=== PATIENT | female | born 1960 | race Caucasian/White ===

== ENCOUNTER 2019-03-11 05:50 | Emergency (ER) | payer BC, OTHER ==
[2019-03-11] MEDS ORDERED: KETOROLAC 30 MG/ML INJ ONE (06:21)
[2019-03-11] MEDS ORDERED: ONDANSETRON 4 MG/2 ML VIAL ONE (06:21)
[2019-03-11] MEDS ORDERED: NA CHLORIDE 0.9% 1,000 ML ONE (06:21)
[2019-03-11 06:56] LABS: Absolute Lymphocytes (CBC) 0.6 K/uL (0.7-4.9); Basophils % 0.3 % (0-1.3); Hematocrit 35.6 % (36.0-45.0); Lymphocytes % 4.7 % (15.3-44.8); MPV 9.1 fL (7.6-11.3); RBC Red Blood Cell Count 3.81 M/uL (3.86-4.86)
[2019-03-11 07:22] LABS: Albumin 3.2 g/dL (3.4-5.0); Bilirubin Direct 0.1 mg/dL (0-0.2); Bilirubin Total 0.5 mg/dL (0.2-1.0); Potassium 3.9 mmol/L (3.5-5.1); Protein, Total 6.5 g/dL (6.4-8.2)
[2019-03-11 08:48] LABS: Blood Morphology Comment NOT SEEN (NOT SEEN); Platelet Estimate ADEQ
--- NOTE | 2019-03-11 09:07 | RAD REPORT ---
EXAM DESCRIPTION: CT - Abdomen Pelvis W Contrast - 03/11/2019 8:30 am CLINICAL HISTORY: Constipation;Abd pain COMPARISON: None. TECHNIQUE: Biphasic, helical CT imaging of the abdomen and pelvis was performed following 100 ml non -ionic IV contrast. Oral contrast was given. All CT scans are performed using dose optimization technique as appropriate and may include automated exposure control or mA/KV adjustment according to patient size. FINDINGS: No suspicious findings in the lung bases. Liver shows fatty infiltration but no focal lesions. Liver size is normal. Spleen and pancreas show n o acute or suspicious findings. Gallbladder and biliary tree are also without suspicious finding. Symmetric renal function is seen with no hydronephrosis or suspicious renal mass. No pyelonephritis o r acute parenchymal process. No bladder abnormalities. No adrenal abnormality seen. Tubal ligation cl ips are present. Uterus and ovaries show no suspicious findings. No gastric dilatation or wall thickening. No acute small bowel finding. Appendicitis is not identifia ble. From cecum through descending colon there are no acute findings. There is a long segment circumf erential wall thickening involving almost all of the sigmoid colon. Diverticulosis is not clearly irving dent. There is minimal stranding of fatty tissues adjacent to the involved sigmoid colon. No free air, free fluid or pneumatosis. No hernia, mass or bulky lymphadenopathy. No suspicious bony findings. IMPRESSION: Sigmoid colitis. No focal mass lesions seen. No free air or surgically emergent finding. Mild fatty infiltration of the liver.
[2019-03-11] MEDS ORDERED: METRONIDAZOLE 500mg IVPB 500 MG/100 ML BAG IV ONE (09:28)
[2019-03-11] MEDS ORDERED: CIPROFLOXACIN HCL 500 MG TAB ONE (09:28)
--- NOTE | 2019-03-11 09:31 | ER ---
Nurse's Notes [facility] Name: Elsy Reed Age: 58 yrs Sex: Female : 1960 Arrival Date: 03/11/2019 Time: 05:51 Bed 17 Private MD: Diagnosis: Other abdominal pain-sigmoid colitis Presentation: 03/11 05:55 Presenting complaint: Patient states: "Constipation since the past 5 days. I've already cc3 tried OTC miralax, colace and even enema but not helping. My last bowel movement was last night but very little amount. I vomited bile last night and this morning 3x. I also have lower abdominal pain". Transition of care: patient was not received from another setting of care. Onset of symptoms is unknown. Risk Assessment: Do you want to hurt yourself or someone else? Patient reports no desire to harm self or others. Initial Sepsis Screen: Does the patient meet any 2 criteria? No. Patient's initial sepsis screen is negative. Does the patient have a suspected source of infection? No. Patient's initial sepsis screen is negative. Care prior to arrival: None. 05:55 Method Of Arrival: Ambulatory cc3 05:55 Acuity: OMAIRA 3 cc3 Triage Assessment: 05:55 General: Appears in no apparent distress. uncomfortable, Behavior is calm, cooperative, cc3 appropriate for age. Pain: Complains of pain in abdomen diffusely, lower abdomen Pain currently is 6 out of 10 on a pain scale. EENT: No signs and/or symptoms were reported regarding the EENT system. Neuro: Level of Consciousness is awake, alert, obeys commands, Oriented to person, place, time, situation, Appropriate for age. Cardiovascular: Denies chest pain, Capillary refill < 3 seconds in bilateral Patient's skin is warm and dry. Respiratory: Airway is patent Respiratory effort is even, unlabored, Respiratory pattern is regular, symmetrical. GI: Abdomen is round. : No signs and/or symptoms were reported regarding the genitourinary system. Derm: Skin is intact, is healthy with good turgor, Skin is pink, warm \\T\\ dry. normal. Musculoskeletal: Circulation, motion, and sensation intact. Range of motion: intact in all extremities. Historical: - Allergies: 05:55 No Known Allergies; cc3 - Home Meds: 05:55 irbesartan oral oral [Active]; Nexium Oral [Active]; Zyrtec Oral [Active]; cc3 - PMHx: 05:55 Hypertension; cc3 - PSHx: 05:55 Tubal ligation; cc3 - Immunization history:: Adult Immunizations not up to date. - Social history:: Smoking status: Patient uses tobacco products, smokes one pack cigarettes per day. - Ebola Screening: : No symptoms or risks identified at this time. Screenin:55 Abuse screen: Denies threats or abuse. Denies injuries from another. Nutritional cc3 screening: No deficits noted. Tuberculosis screening: No symptoms or risk factors identified. Fall Risk Ambulatory Aid- None/Bed Rest/Nurse Assist (0 pts). Gait- Normal/Bed Rest/Wheelchair (0 pts) Mental Status- Oriented to own ability (0 pts). Assessment: 05:55 GI: Bowel sounds present X 4 quads. Abd is soft X 4 quads Abdomen is tender to cc3 palpation in bilateral lower abdomen. 06:56 Reassessment: Patient appears in no apparent distress at this time. Patient and/or cc3 family updated on plan of care and expected duration. Pain level reassessed. Patient is alert, oriented x 3, equal unlabored respirations, skin warm/dry/pink. Patient finished her oral contrast, wound care technician Erin informed. Patient denies pain at this time. Patient states feeling better. Patient states symptoms have improved. 07:09 General: Appears in no apparent distress. comfortable, well developed, Behavior is sv calm, cooperative, appropriate for age. Pain: Complains of pain in abdomen. Neuro: Level of Consciousness is awake, alert, obeys commands, Oriented to person, place, time, situation, Moves all extremities. Full function. Cardiovascular: Patient's skin is warm and dry. Pulses are 3+ in right radial artery and left radial artery. Respiratory: Airway is patent Respiratory effort is even, unlabored, Respiratory pattern is regular, symmetrical. GI: Abdomen is distended, Bowel sounds present X 4 quads. Patient currently denies nausea. Derm: Skin is intact, Skin is pink, warm \\T\\ dry. 09:32 Reassessment: Patient appears in no apparent distress at this time. Patient and/or sv family updated on plan of care and expected duration. Pain level reassessed. Patient is alert, oriented x 3, equal unlabored respirations, skin warm/dry/pink. 09:32 Reassessment: Pt up for discharge, pt receiving Flagyl IVPB at this time to be finished sv before discharge. 10:05 Reassessment: PT D/C HOME AMBULATORY, DX WITH SIGMOID COLITIS. bp Vital Signs: 05:55 BP 147 / 83; Pulse 94; Resp 17 S; Temp 98.7(O); Pulse Ox 98% on R/A; Weight 77.11 kg cc3 (R); Height 5 ft. 0 in. (152.40 cm) (R); Pain 6/10; 06:30 BP 114 / 72; Pulse 82; Resp 18 S; Pulse Ox 100% on R/A; cc3 07:00 BP 125 / 72; Pulse 80; Resp 16; Pulse Ox 100% ; sv 07:53 BP 125 / 72; Pulse 87; Resp 17; Temp 99.1(O); Pulse Ox 99% on R/A; mh5 09:28 BP 133 / 67; Pulse 87; Resp 17; Temp 99.3(O); Pulse Ox 100% ; mh5 10:06 BP 143 / 90; Pulse 84; Resp 16; Temp 98.5; Pulse Ox 100% ; bp 05:55 Body Mass Index 33.20 (77.11 kg, 152.40 cm) cc3 ED Course: 05:51 Patient arrived in ED. ds1 05:52 Kyara Soni is Primary Nurse. cc3 05:53 Juan Pablo Arias NP is PHCP. pm1 05:53 Jesu Templeton MD is Attending Physician. pm1 05:55 Arm band placed on right wrist. Patient notified of wait time. cc3 05:55 Patient has correct armband on for positive identification. Bed in low position. Call cc3 light in reach. Side rails up X 1. Pulse ox on. NIBP on. 06:08 Triage completed. cc3 06:35 Inserted saline lock: 20 gauge in right antecubital area, using aseptic technique. cc3 Blood collected. 07:00 Report given to SALLY Hopkins. cc3 07:03 Kellie Cevallos RN is Primary Nurse. sv 07:10 Awaiting lab results, Awaiting CT Scan. sv 08:33 CT Abd/Pelvis - PO and IV Contrast In Process Unspecified. EDMS 10:05 No provider procedures requiring assistance completed. IV discontinued, intact, bp bleeding controlled, No redness/swelling at site. Pressure dressing applied. Administered Medications: 06:35 Drug: NS 0.9% 1000 ml Route: IV; Rate: 1000 ml; Site: right antecubital; cc3 07:30 Follow up: Response: No adverse reaction; IV Status: Completed infusion; IV Intake: sv 1000ml 06:35 Drug: TORadol 30 mg Route: IVP; Site: right antecubital; cc3 07:00 Follow up: Response: No adverse reaction; Pain is decreased cc3 06:40 Drug: Zofran 4 mg Route: IVP; Site: right antecubital; cc3 06:53 Follow up: Response: No adverse reaction; Nausea is decreased cc3 09:31 Drug: Cipro 500 mg Route: PO; sv 10:07 Follow up: Response: No adverse reaction bp 09:31 Drug: Flagyl 500 mg Volume: 100 ml; Route: IVPB; Rate: 200 ml/hr; Infused Over: 30 sv mins; Site: right antecubital; 10:07 Follow up: IV Status: Completed infusion; IV Intake: 100ml bp Intake: 07:30 IV: 1000ml; Total: 1000ml. sv 10:07 IV: 100ml; Total: 1100ml. bp Outcome: 09:30 Discharge ordered by . pm1 10:06 Discharged to home ambulatory. bp 10:06 Condition: stable 10:06 Discharge instructions given to patient, Instructed on discharge instructions, follow up and referral plans. medication usage, Demonstrated understanding of instructions, follow-up care, medications, Prescriptions given X 4. 10:07 Patient left the ED. bp Signatures: Dispatcher [employer] EDKS Kellie Cevallos RN RN Malinda Parmar ds1 Juan Pablo Arias, [employer] PUMP ATTENDANT pm1 Funmi Goode Mustapha Denton RN RN Kyara Munoz cc3
--- NOTE | 2019-03-11 09:31 | EDPHYS ---
Physician Documentation [facility] Name: Elsy Reed Age: 58 yrs Sex: Female : 1960 Arrival Date: 03/11/2019 Time: 05:51 Bed 17 Private MD: ED Physician Jesu Templeton HPI: 03/11 06:05 This 58 yrs old Female presents to ER via Unassigned with complaints of pm1 Constipation, Abdominal Pain. 06:05 The patient presents with abdominal pain that is diffuse. Onset: The symptoms/episode pm1 began/occurred 5 day(s) ago. The symptoms do not radiate. Associated signs and symptoms: Pertinent positives: nausea and vomiting, constipation, Pertinent negatives: chest pain, diarrhea, dysuria, fever, shortness of breath. The symptoms are described as crampy. Modifying factors: The symptoms are alleviated by nothing, the symptoms are aggravated by nothing. Severity of pain: in the emergency department the pain is actually worse. The patient has not experienced similar symptoms in the past. The patient has not recently seen a physician. Patient with diffuse abdominal pain and constipation onset 5 days ago. Bowel movement last night, small quantity. Bilious vomiting x 3 since last night. Patient has been taking Miralax and Colace. Enema last night. Historical: - Allergies: 05:55 No Known Allergies; cc3 - Home Meds: 05:55 irbesartan oral oral [Active]; Nexium Oral [Active]; Zyrtec Oral [Active]; cc3 - PMHx: 05:55 Hypertension; cc3 - PSHx: 05:55 Tubal ligation; cc3 - Immunization history:: Adult Immunizations not up to date. - Social history:: Smoking status: Patient uses tobacco products, smokes one pack cigarettes per day. - Ebola Screening: : No symptoms or risks identified at this time. ROS: 06:05 Constitutional: Negative for fever, chills, and weight loss, Eyes: Negative for injury, pm1 pain, redness, and discharge, ENT: Negative for injury, pain, and discharge, Neck: Negative for injury, pain, and swelling, Cardiovascular: Negative for chest pain, palpitations, and edema, Respiratory: Negative for shortness of breath, cough, wheezing, and pleuritic chest pain. 06:05 Back: Negative for injury and pain, : Negative for injury, bleeding, discharge, and swelling, MS/Extremity: Negative for injury and deformity, Skin: Negative for injury, rash, and discoloration, Neuro: Negative for headache, weakness, numbness, tingling, and seizure. 06:05 Abdomen/GI: Positive for abdominal pain, nausea and vomiting, constipation, Negative for diarrhea. Exam: 06:05 Constitutional: This is a well developed, well nourished patient who is awake, alert, pm1 and in no acute distress. Head/Face: Normocephalic, atraumatic. Neck: Trachea midline, no thyromegaly or masses palpated, and no cervical lymphadenopathy. Supple, full range of motion without nuchal rigidity, or vertebral point tenderness. No Meningismus. Chest/axilla: Normal chest wall appearance and motion. Nontender with no deformity. No lesions are appreciated. Cardiovascular: Regular rate and rhythm with a normal S1 and S2. No gallops, murmurs, or rubs. Normal PMI, no JVD. No pulse deficits. Respiratory: Lungs have equal breath sounds bilaterally, clear to auscultation and percussion. No rales, rhonchi or wheezes noted. No increased work of breathing, no retractions or nasal flaring. Back: No spinal tenderness. No costovertebral tenderness. Full range of motion. 06:05 Skin: Warm, dry with normal turgor. Normal color with no rashes, no lesions, and no evidence of cellulitis. MS/ Extremity: Pulses equal, no cyanosis. Neurovascular intact. Full, normal range of motion. 06:05 Abdomen/GI: Inspection: obese Bowel sounds: normal, Palpation: soft, mild abdominal tenderness, in the abdomen diffusely, mass, is not appreciated, rebound tenderness, is not appreciated. 06:05 Neuro: Orientation: is normal, Motor: no acute changes, moves all fours. Vital Signs: 05:55 BP 147 / 83; Pulse 94; Resp 17 S; Temp 98.7(O); Pulse Ox 98% on R/A; Weight 77.11 kg cc3 (R); Height 5 ft. 0 in. (152.40 cm) (R); Pain 6/10; 06:30 BP 114 / 72; Pulse 82; Resp 18 S; Pulse Ox 100% on R/A; cc3 07:00 BP 125 / 72; Pulse 80; Resp 16; Pulse Ox 100% ; sv 07:53 BP 125 / 72; Pulse 87; Resp 17; Temp 99.1(O); Pulse Ox 99% on R/A; mh5 09:28 BP 133 / 67; Pulse 87; Resp 17; Temp 99.3(O); Pulse Ox 100% ; mh5 10:06 BP 143 / 90; Pulse 84; Resp 16; Temp 98.5; Pulse Ox 100% ; bp 05:55 Body Mass Index 33.20 (77.11 kg, 152.40 cm) cc3 MDM: 05:56 Patient medically screened. pm1 06:09 Data reviewed: vital signs. Data interpreted: Pulse oximetry: on room air is 98 %. pm1 Interpretation: normal. 09:23 Counseling: I had a detailed discussion with the patient and/or guardian regarding: the pm1 historical points, exam findings, and any diagnostic results supporting the discharge/admit diagnosis, lab results, radiology results, the need for outpatient follow up, to return to the emergency department if symptoms worsen or persist or if there are any questions or concerns that arise at home. 03/11 06:03 Order name: Basic Metabolic Panel; Complete Time: 07:23 pm03/11 06:03 Order name: CBC with Diff; Complete Time: 09:17 pm03/11 06:03 Order name: Creatinine for Radiology; Complete Time: 07:23 pm03/11 06:03 Order name: Hepatic Function; Complete Time: 07:23 pm03/11 06:03 Order name: Lipase; Complete Time: 07:23 pm03/11 08:12 Order name: Urine Dipstick--Ancillary (enter results); Complete Time: 13:23 bd 03/11 06:03 Order name: CT Abd/Pelvis - PO and IV Contrast; Complete Time: 09:17 pm03/11 08:15 Order name: Urine --Ancillary (enter results); Complete Time: 13:23 bd 03/11 08:48 Order name: Manual Differential; Complete Time: 09:17 EDMS 03/11 06:03 Order name: IV Saline Lock; Complete Time: 06:47 pm1 03/11 06:03 Order name: Labs collected and sent; Complete Time: 06:47 pm1 03/11 06:03 Order name: Urine Dipstick-Ancillary (obtain specimen); Complete Time: 08:11 pm1 03/11 06:03 Order name: Urine Test (obtain specimen); Complete Time: 09:31 pm1 Administered Medications: 06:35 Drug: NS 0.9% 1000 ml Route: IV; Rate: 1000 ml; Site: right antecubital; cc3 07:30 Follow up: Response: No adverse reaction; IV Status: Completed infusion; IV Intake: sv 1000ml 06:35 Drug: TORadol 30 mg Route: IVP; Site: right antecubital; cc3 07:00 Follow up: Response: No adverse reaction; Pain is decreased cc3 06:40 Drug: Zofran 4 mg Route: IVP; Site: right antecubital; cc3 06:53 Follow up: Response: No adverse reaction; Nausea is decreased cc3 09:31 Drug: Cipro 500 mg Route: PO; sv 10:07 Follow up: Response: No adverse reaction bp 09:31 Drug: Flagyl 500 mg Volume: 100 ml; Route: IVPB; Rate: 200 ml/hr; Infused Over: 30 sv mins; Site: right antecubital; 10:07 Follow up: IV Status: Completed infusion; IV Intake: 100ml bp Disposition: 22:46 Co-signature as Attending Physician, Jesu Templeton MD. rn Disposition: 03/11/19 09:30 Discharged to Home. Impression: Other abdominal pain - sigmoid colitis. - Condition is Stable. - Discharge Instructions: Abdominal Pain, Adult, Colitis. - Prescriptions for Bentyl 20 mg Oral Tablet - take 1 tablet by ORAL route every 6 hours As needed; 20 tablet. Flagyl 500 mg Oral Tablet - take 1 tablet by ORAL route every 8 hours for 10 days; 30 tablet. Zofran 4 mg Oral Tablet - take 1 tablet by ORAL route every 12 hours As needed; 20 tablet. Cipro 500 mg Oral Tablet - take 1 tablet by ORAL route every 12 hours for 10 days; 20 tablet. - Medication Reconciliation Form, Thank You Letter, Antibiotic Education, Prescription Opioid Use form. - Follow up: Emergency Department; When: As needed; Reason: Worsening of condition. Follow up: Private Physician; When: 2 - 3 days; Reason: Recheck today's complaints, Continuance of care, Re-evaluation by your physician. - Problem is new. - Symptoms have improved. Signatures: Dispatcher [employer] EDKellie Jenkins RN RN Jesu Ornelas MD MD rn Marinas, Patrick, RESPITE PROVIDER RESPITE PROVIDER pm1 Mustapha Oseguera RN RN Kyara Munoz cc3 Corrections: (The following items were deleted from the chart) 10:07 09:30 03/11/2019 09:30 Discharged to Home. Impression: Other abdominal pain - sigmoid bp colitis. Condition is Stable. Forms are Medication Reconciliation Form, Thank You Letter, Antibiotic Education, Prescription Opioid Use. Follow up: Emergency Department; When: As needed; Reason: Worsening of condition. Follow up: Private Physician; When: 2 - 3 days; Reason: Recheck today's complaints, Continuance of care, Re-evaluation by your physician. Problem is new. Symptoms have improved. pm1
[2019-03-11 09:49] LABS: Urine Specific Gravity 1.015 (1.005-1.030)
[2019-03-11 09:50] LABS: Urine Blood NEGATIVE (NEG); Urine Glucose NEGATIVE (NEG); Urine Protein NEGATIVE (NEG); Urine Specific Gravity 1.015 (1.005-1.030); Urine pH 6.5 (5.0-7.0)
[2019-03-11 10:20] VITALS: O2SAT 100
[2019-03-11 10:21] VITALS: BP 143/90; TEMP 98.5
== END 2019-03-11 10:07 | disposition home or self-care (01) ==
LOC: ER 05:50
DX: K52.9 Noninfective gastroenteritis and colitis, unspecified (principal); I10 Essential (primary) hypertension; F17.210 Nicotine dependence, cigarettes, uncomplicated
CPT/HCPCS: 96365; 96361; 85025; 80048; 36415; 81025; 80076; 81003; 83690; 74177; 96375; 99284; Q9967; J7030; J2405

== ENCOUNTER 2019-03-17 12:38 | Emergency (ER) | payer BC ==
[2019-03-17] MEDS ORDERED: MEPERIDINE HCL 25 MG/0.5 ML ONE (13:49)
[2019-03-17] MEDS ORDERED: NA CHLORIDE 0.9% 1,000 ML ONE ×2 (13:50→17:10)
[2019-03-17] MEDS ORDERED: ONDANSETRON 4 MG/2 ML VIAL ONE ×2 (13:50→17:19)
[2019-03-17 14:02] LABS: Absolute Lymphocytes (CBC) 1.2 K/uL (0.7-4.9); Basophils % 0.2 % (0-1.3); Hematocrit 39.9 % (36.0-45.0); Lymphocytes % 6.5 % (15.3-44.8); MPV 9.2 fL (7.6-11.3); RBC Red Blood Cell Count 4.41 M/uL (3.86-4.86)
[2019-03-17 14:18] LABS: ALT/SGPT 26 U/L (12-78); AST/SGOT 18 U/L (15-37); Albumin 3.2 g/dL (3.4-5.0); Alkaline Phosphatase 51 U/L (45-117); BUN Blood Urea Nitrogen 14 mg/dL (7-18); Bicarbonate 25 mmol/L (21-32); Bilirubin Direct 0.1 mg/dL (0-0.2); Bilirubin Total 0.3 mg/dL (0.2-1.0); Glucose Level 119 mg/dL (74-106); Lipase 38 U/L (73-393); Potassium 3.3 mmol/L (3.5-5.1); Protein, Total 7.3 g/dL (6.4-8.2); Sodium Level 136 mmol/L (136-145)
[2019-03-17] MEDS ORDERED: MORPHINE 4 MG/ML SYR ONE ×3 (14:29→20:39)
[2019-03-17 15:16] LABS: Blood Morphology Comment NOTED (NOT SEEN); Platelet Estimate INCR; Urine White Blood Cell Casts OK
[2019-03-17 15:17] LABS: Poikilocytosis 1+
--- NOTE | 2019-03-17 16:51 | RAD REPORT ---
EXAM DESCRIPTION: CT - Abdomen Pelvis W Contrast - 03/17/2019 4:26 pm CLINICAL HISTORY: abp painstatus post colonoscopy, history indicating abnormal finding in the sigmoi d colon COMPARISON: CT imaging March 11 TECHNIQUE: Biphasic, helical CT imaging of the abdomen and pelvis was performed following 100 ml non -ionic IV contrast. Oral contrast was given. All CT scans are performed using dose optimization technique as appropriate and may include automated exposure control or mA/KV adjustment according to patient size. FINDINGS: Minimal atelectasis. No acute lung base finding. Fat infiltration present in the liver. No acute liver finding. Spleen and pancreas show no suspicious findings. Gallbladder and biliary tree are also without suspicious finding. Symmetric renal function is seen with no hydronephrosis or suspicious renal mass. No pyelonephritis o r acute parenchymal process. No bladder abnormalities. No adrenal abnormalities. No acute gastric finding. No dilated small bowel loops. Cecum, ascending colon, transverse colon and descending colon are distended to borderline dilated. This is not unexpected following recent colonos copy. Rectosigmoid colon normal in diameter. There is a large amount of free intraperitoneal air pres ent. Free intraperitoneal fluid is present and there is a small amount of retroperitoneal fluid near the right kidney. Free fluid pools in the cul de sac. Oral contrast has reached the right side of the transverse colon. No extravasation of the oral contrast. Sigmoid wall thickening is present along th e mid and distal portion of the sigmoid colon. A well-defined mass is not identifiable. An exact site of perforation is not identifiable. No bulky lymphadenopathy. Small fat only umbilical hernia present. No suspicious bony findings. Findings telephoned to the emergency department 4:47 p.m. IMPRESSION: Large amount of free intraperitoneal air with a small amount of free fluid seen. Exact site of perforation is not clearly defined. There is circumferential wall thickening along the mid and distal portion of the sigmoid colon. Oral contrast has reached the right side of the transverse colon without extravasation.
[2019-03-17] MEDS ORDERED: PIPER/TAZO/NS 3.375gm 3.375 GM/100 ML BAG ONE (17:10)
--- NOTE | 2019-03-17 17:36 | ER ---
Nurse's Notes [facility] Name: Elsy Reed Age: 58 yrs Sex: Female : 1960 Arrival Date: 03/17/2019 Time: 13:05 Bed 7 Private MD: Diagnosis: Perforation of intestine (nontraumatic) Presentation: 03/17 13:05 Presenting complaint: Patient states: I had a colonoscopy and they found something in la1 my sigmoid colon. I am having severe abd pain and they told me to come to the ED. Transition of care: patient was not received from another setting of care. Onset of symptoms was March 17, 2019. Risk Assessment: Do you want to hurt yourself or someone else? Patient reports no desire to harm self or others. Initial Sepsis Screen: Does the patient meet any 2 criteria? No. Patient's initial sepsis screen is negative. Does the patient have a suspected source of infection? No. Patient's initial sepsis screen is negative. Care prior to arrival: None. 13:05 Method Of Arrival: Wheelchair la1 13:05 Acuity: OMAIRA 2 la1 Historical: - Allergies: 18:27 No Known Allergies; tw2 - Home Meds: 18:27 Zyrtec Oral [Active]; Nexium Oral [Active]; irbesartan Oral [Active]; tw2 - PMHx: 18:27 Hypertension; tw2 - PSHx: 18:27 Tubal ligation; tw2 - Immunization history:: Adult Immunizations up to date. - Social history:: Smoking status: . - Family history:: not pertinent. - Ebola Screening: : Patient denies travel to an Ebola-affected area in the 21 days before illness onset. - Hospitalizations: : No recent hospitalization is reported. Screenin:21 Abuse screen: Denies threats or abuse. Denies injuries from another. Nutritional aj1 screening: No deficits noted. Tuberculosis screening: No symptoms or risk factors identified. 18:27 Fall Risk None identified. tw2 Assessment: 13:21 General: Appears in no apparent distress. uncomfortable, Behavior is calm, cooperative, aj1 appropriate for age. Pain: Complains of pain in abdomen. Neuro: Level of Consciousness is awake, alert, obeys commands. Cardiovascular: Patient's skin is warm and dry. Respiratory: Airway is patent Respiratory effort is even, unlabored, Respiratory pattern is regular, symmetrical. GI: Abdomen is distended, Bowel sounds present X 4 quads. Abdomen is tender to palpation X 4 quads. Abd is rigid X 4 quads. Reports nausea, vomiting. : No signs and/or symptoms were reported regarding the genitourinary system. EENT: No signs and/or symptoms were reported regarding the EENT system. Derm: No signs and/or symptoms reported regarding the dermatologic system. Skin is pink, warm \T\ dry. normal. Musculoskeletal: No signs and/or symptoms reported regarding the musculoskeletal system. Circulation, motion, and sensation intact. 13:52 Reassessment: Initiated 1L NS bolus to right AC IV. Patient was also administered aj1 Demerol 25 mg IVP and Zofran 4 mg IVP at this time. 14:30 Reassessment: Patient appears in no apparent distress at this time. No changes from aj1 previously documented assessment. Patient and/or family updated on plan of care and expected duration. Pain level reassessed. Patient is alert, oriented x 3, equal unlabored respirations, skin warm/dry/pink. Patient states that her pain has not improved at all since administration of Demerol, Notified Dr. Templeton. Order received. See MAR for more details. 15:29 Reassessment: Patient appears in no apparent distress at this time. No changes from tw2 previously documented assessment. Patient and/or family updated on plan of care and expected duration. Pain level reassessed. Patient is alert, oriented x 3, equal unlabored respirations, skin warm/dry/pink. 16:30 Reassessment: Patient and/or family updated on plan of care and expected duration. Pain aj1 level reassessed. General: Appears in no apparent distress. comfortable, Behavior is calm, cooperative. Pain: Complains of pain in abdomen. Neuro: Level of Consciousness is awake, alert, obeys commands. Cardiovascular: Patient's skin is warm and dry. Respiratory: Airway is patent Respiratory effort is even, unlabored, Respiratory pattern is regular, symmetrical. GI: Abdomen is round distended, Abd is rigid X 4 quads. Derm: No signs and/or symptoms reported regarding the dermatologic system. Skin is pink, warm \T\ dry. normal. Musculoskeletal: No signs and/or symptoms reported regarding the musculoskeletal system. Circulation, motion, and sensation intact. 17:15 Reassessment: Patient reports that her and nausea pain has come back. Notified Dr. vin Templeton. Orders received. See MAR for more details. 18:36 Reassessment: Patient appears in no apparent distress at this time. Patient and/or tw2 family updated on plan of care and expected duration. Pain level reassessed. Patient is alert, oriented x 3, equal unlabored respirations, skin warm/dry/pink. 19:10 Reassessment: pt assisted to restroom via w/c at this time, pt had urinary accident on tw2 herself and her pants, pt was given a brief, pad, and wipes at this time. 19:10 General: Appears in no apparent distress. Behavior is calm, cooperative, appropriate ea for age. Pain: Complains of pain in abdomen. Neuro: Level of Consciousness is awake, alert, obeys commands, Oriented to person, place, time, situation. Cardiovascular: Patient's skin is warm and dry. Respiratory: Airway is patent Respiratory effort is even, unlabored, Respiratory pattern is regular, symmetrical. Derm: Skin is pink, warm \T\ dry. Musculoskeletal: Circulation, motion, and sensation intact. 20:50 Reassessment: Patient and/or family updated on plan of care and expected duration. Pain ea level reassessed. Patient is alert, oriented x 3, equal unlabored respirations, skin warm/dry/pink. Pt complaining of pain, provider notified, medication administered. Pt tolerating well. 20:58 Reassessment: Patient and/or family updated on plan of care and expected duration. Pain ea level reassessed. Patient is alert, oriented x 3, equal unlabored respirations, skin warm/dry/pink. [facility] at facility for transfer, report given to EMS, pt left ED via stretcher per EMS. Tolerating well. Vital Signs: 13:06 BP 141 / 75; Pulse 100; Resp 16; Temp 97.4; Pulse Ox 100% on R/A; Weight 78.93 kg; la1 Height 5 ft. 6 in. (167.64 cm); 14:31 BP 135 / 108; Pulse 73; Resp 18; Pulse Ox 97% on R/A; aj1 15:29 BP 127 / 73; Pulse 74; Resp 17; Pulse Ox 100% on R/A; tw2 16:00 BP 139 / 76; Pulse 80; Resp 18; Pulse Ox 97% on R/A; aj1 17:00 BP 143 / 66; Pulse 94; Resp 20; Pulse Ox 98% on R/A; aj1 18:00 BP 133 / 72; Pulse 91; Resp 17; Pulse Ox 98% on R/A; tw2 19:53 BP 130 / 70; Pulse 87; Resp 18; Pulse Ox 95% on R/A; ea 20:55 BP 113 / 73; Pulse 94; Resp 18; Temp 97.6; Pulse Ox 96% on R/A; ea 13:06 Body Mass Index 28.08 (78.93 kg, 167.64 cm) la1 ED Course: 13:05 Patient arrived in ED. la1 13:06 Triage completed. la1 13:06 Arm band placed on right wrist. la1 13:11 Jesu Templeton MD is Attending Physician. rn 13:21 Elizabeth Juarez RN is Primary Nurse. aj1 13:21 Patient has correct armband on for positive identification. Bed in low position. Call [facility] light in reach. 13:21 No provider procedures requiring assistance completed. aj1 13:50 Initial lab(s) drawn, by hi, sent to lab. Inserted saline lock: 20 gauge in right [facility] antecubital area, using aseptic technique. Blood collected. 16:31 Abdomen In Process Unspecified. EDMS 18:37 Patient transferred, IV remains in place. tw2 19:18 Report given to SALLY Man at [facility]. aj Administered Medications: 14:31 Drug: morphine 4 mg {Note: RASS scoire 0, patient is alert.} Route: IVP; Site: right aj1 antecubital; 15:30 Follow up: Response: No adverse reaction; Pain is decreased; RASS: Alert and Calm (0) aj1 17:18 Drug: Zosyn 3.375 grams Route: IVPB; Infused Over: 60 mins; Site: right antecubital; tw2 18:26 Follow up: Response: No adverse reaction; IV Status: Completed infusion tw2 18:57 Follow up: IV Status: Completed infusion; IV Intake: 100ml aj1 17:18 Drug: NS 0.9% 1000 ml Route: IV; Rate: 125 ml/hr; Site: right antecubital; tw2 18:37 Follow up: IV Status: Infusion continued upon transfer tw2 17:22 Drug: morphine 4 mg {Note: RASS score 0 patient is alert.} Route: IVP; Site: right aj1 antecubital; 18:57 Follow up: Response: No adverse reaction; Pain is decreased; RASS: Alert and Calm (0) aj1 17:22 Drug: Zofran 4 mg Route: IVP; Site: right antecubital; aj1 18:30 Follow up: Response: No adverse reaction aj1 18:30 Drug: Dilaudid 1 mg {Note: RASS score 0- patient is alert.} Route: IVP; Site: right aj1 antecubital; 18:58 Follow up: Response: No adverse reaction; Pain is decreased; RASS: Alert and Calm (0) aj1 20:50 Drug: morphine 4 mg {Note: RASS 1.} Route: IVP; Site: right antecubital; ea 21:02 Follow up: Response: No adverse reaction; RASS: Alert and Calm (0) ea Intake: 18:57 IV: 100ml; Total: 100ml. [facility] Outcome: 17:02 ER care complete, transfer ordered by . rn 19:10 Instructed on the need for transfer. ea 20:57 Transferred by ground EMS to [facility], Transfer form completed. ea 20:57 Condition: stable 21:01 Patient left the ED. ea Signatures: Dispatcher [employer] Elizabeth Saldana RN RN aj1 Jesu Templeton MD MD rn Attema, Lee, RN RN laIsi Howard RN RN tw2 Cris Love RN RN ea
--- NOTE | 2019-03-17 17:36 | EDPHYS ---
Physician Documentation [facility] Name: Elsy Reed Age: 58 yrs Sex: Female : 1960 Arrival Date: 03/17/2019 Time: 13:05 Bed 7 Private MD: ED Physician Jesu Templeton HPI: 03/17 13:25 This 58 yrs old Female presents to ER via Wheelchair with complaints of Abd rn Pain > 50 y/o. 13:25 The patient presents with abdominal distention that is diffuse. Onset: The rn symptoms/episode began/occurred 1 week(s) ago. The symptoms do not radiate. Associated signs and symptoms: Pertinent positives: nausea and vomiting, anorexia, constipation. The symptoms are described as constant, crampy. Modifying factors: The symptoms are alleviated by nothing, the symptoms are aggravated by movement, touching the area. Severity of pain: At its worst the pain was moderate in the emergency department the pain is unchanged. The patient has not experienced similar symptoms in the past. The patient has been recently seen by a physician:. Reports seen here with normal CT abdomen this past week, had colonoscopy today and told that couldn't pass camera past sigmoid colon. Reports abd distension and vomiting. NO bowel movements. . Historical: - Allergies: 18:27 No Known Allergies; tw2 - Home Meds: 18:27 Zyrtec Oral [Active]; Nexium Oral [Active]; irbesartan Oral [Active]; tw2 - PMHx: 18:27 Hypertension; tw2 - PSHx: 18:27 Tubal ligation; tw2 - Immunization history:: Adult Immunizations up to date. - Social history:: Smoking status: . - Family history:: not pertinent. - Ebola Screening: : Patient denies travel to an Ebola-affected area in the 21 days before illness onset. - Hospitalizations: : No recent hospitalization is reported. ROS: 13:25 Constitutional: Negative for fever, chills, and weight loss, Eyes: Negative for injury, rn pain, redness, and discharge, Neck: Negative for injury, pain, and swelling, Cardiovascular: Negative for chest pain, palpitations, and edema, Respiratory: Negative for shortness of breath, cough, wheezing, and pleuritic chest pain, Abdomen/GI: Negative for diarrhea MS/Extremity: Negative for injury and deformity, Skin: Negative for injury, rash, and discoloration, Neuro: Negative for headache, weakness, numbness, tingling, and seizure. Exam: 13:25 Constitutional: This is a well developed, well nourished patient who is awake, alert, rn and in no acute distress. Head/Face: Normocephalic, atraumatic. ENT: dry MM Cardiovascular: Regular rate and rhythm. No pulse deficits. Respiratory: No increased work of breathing, no retractions or nasal flaring. Abdomen/GI: + abd distension with firm upper abdomen, no peritoneal signs MS/ Extremity: Pulses equal, no cyanosis. Neurovascular intact. Full, normal range of motion. Equal circumference. Neuro: Awake and alert, GCS 15, oriented to person, place, time, and situation. Cranial nerves II-XII grossly intact. Motor strength 5/5 in all extremities. Sensory grossly intact. Cerebellar exam normal. Normal gait. Vital Signs: 13:06 BP 141 / 75; Pulse 100; Resp 16; Temp 97.4; Pulse Ox 100% on R/A; Weight 78.93 kg; la1 Height 5 ft. 6 in. (167.64 cm); 14:31 BP 135 / 108; Pulse 73; Resp 18; Pulse Ox 97% on R/A; aj1 15:29 BP 127 / 73; Pulse 74; Resp 17; Pulse Ox 100% on R/A; tw2 16:00 BP 139 / 76; Pulse 80; Resp 18; Pulse Ox 97% on R/A; aj1 17:00 BP 143 / 66; Pulse 94; Resp 20; Pulse Ox 98% on R/A; aj1 18:00 BP 133 / 72; Pulse 91; Resp 17; Pulse Ox 98% on R/A; tw2 19:53 BP 130 / 70; Pulse 87; Resp 18; Pulse Ox 95% on R/A; ea 20:55 BP 113 / 73; Pulse 94; Resp 18; Temp 97.6; Pulse Ox 96% on R/A; ea 13:06 Body Mass Index 28.08 (78.93 kg, 167.64 cm) la1 MDM: 13:11 Patient medically screened. rn 16:57 Differential diagnosis: bowel perforation, diverticulitis, abscess. Data reviewed: rn vital signs, nurses notes, lab test result(s), radiologic studies, CT scan, and as a result, I will admit patient. Counseling: I had a detailed discussion with the patient and/or guardian regarding: the historical points, exam findings, and any diagnostic results supporting the discharge/admit diagnosis, lab results, radiology results, the need for further work-up and treatment in the hospital. Medical screen evaluation completed. [facility] emergency medical condition absent. Response to treatment: the patient's symptoms have mildly improved after treatment, and as a result, I will admit patient. ED course: Patient seen here in ER by Dr. Serna who contacted Dr. Antunez regarding bowel perforation, Dr. Antunez has accepted patient for transfer to [facility]. Abx given. Pain meds given. NPO. Fluids going.. 03/17 15:09 Order name: CBC with Automated Diff; Complete Time: 16:54 EDMS 03/17 15:09 Order name: Basic Metabolic Panel; Complete Time: 15:10 EDMS 03/17 15:09 Order name: Liver (Hepatic) Function; Complete Time: 15:10 EDMS 03/17 15:09 Order name: Lipase; Complete Time: 15:10 EDMS 03/17 15:18 Order name: CBC Smear Scan; Complete Time: 16:54 EDMS 03/17 16:31 Order name: Abdomen ; Complete Time: 16:54 EDMS 03/17 16:51 Order name: NPO; Complete Time: 16:55 rn Administered Medications: 14:31 Drug: morphine 4 mg {Note: RASS scoire 0, patient is alert.} Route: IVP; Site: right aj1 antecubital; 15:30 Follow up: Response: No adverse reaction; Pain is decreased; RASS: Alert and Calm (0) 17:18 Drug: Zosyn 3.375 grams Route: IVPB; Infused Over: 60 mins; Site: right antecubital; tw2 18:26 Follow up: Response: No adverse reaction; IV Status: Completed infusion tw2 18:57 Follow up: IV Status: Completed infusion; IV Intake: 100ml aj 17:18 Drug: NS 0.9% 1000 ml Route: IV; Rate: 125 ml/hr; Site: right antecubital; tw2 18:37 Follow up: IV Status: Infusion continued upon transfer tw2 17:22 Drug: morphine 4 mg {Note: RASS score 0 patient is alert.} Route: IVP; Site: right aj1 antecubital; 18:57 Follow up: Response: No adverse reaction; Pain is decreased; RASS: Alert and Calm (0) aj1 17:22 Drug: Zofran 4 mg Route: IVP; Site: right antecubital; aj1 18:30 Follow up: Response: No adverse reaction aj1 18:30 Drug: Dilaudid 1 mg {Note: RASS score 0- patient is alert.} Route: IVP; Site: right aj1 antecubital; 18:58 Follow up: Response: No adverse reaction; Pain is decreased; RASS: Alert and Calm (0) aj1 20:50 Drug: morphine 4 mg {Note: RASS 1.} Route: IVP; Site: right antecubital; ea 21:02 Follow up: Response: No adverse reaction; RASS: Alert and Calm (0) ea Disposition: 03/17/19 17:02 Transfer ordered to [facility]. Diagnosis is Perforation of intestine (nontraumatic). - Reason for transfer: Higher level of care. - Accepting physician is Dr. Antunez. - Condition is Stable. - Problem is new. - Symptoms have improved. Signatures: Dispatcher [employer] EDElizabeth Hernandez RN RN aj1 Jesu Templeton MD MD rn Wise, Tara, RN RN tw2 Cris Love RN RN ea Corrections: (The following items were deleted from the chart) 21:01 17:02 03/17/2019 17:02 Transfer ordered to [facility]. Diagnosis is ea Perforation of intestine (nontraumatic). Reason for transfer: Higher level of care. Accepting physician is Dr. Antunez. Condition is Stable. Problem is new. Symptoms have improved. rn
[2019-03-17] MEDS ORDERED: HYDROMORPHONE HCL 1 MG/ML INJ ONE (18:25)
[2019-03-17 22:47] VITALS: BP 113/73; TEMP 97.6; O2SAT 96
== END 2019-03-17 21:01 | disposition short-term general hospital (02) ==
LOC: ER 12:38
DX: K63.1 Perforation of intestine (nontraumatic) (principal); I10 Essential (primary) hypertension
CPT/HCPCS: 96365; 85025; 80048; 36415; 80076; 83690; 74177; 96375; 99285; Q9967; J2543; J2175; J1170; J7030 ×2; J2405 ×2

== ENCOUNTER 2019-05-30 11:21 | Day surgery (SDC) | payer BC ==
[2019-05-29 15:42] LABS: Absolute Lymphocytes (CBC) 2.1 K/uL (0.7-4.9); Basophils % 0.6 % (0-1.3); Hematocrit 36.5 % (36.0-45.0); Lymphocytes % 24.3 % (15.3-44.8); MPV 9.7 fL (7.6-11.3); RBC Red Blood Cell Count 4.02 M/uL (3.86-4.86)
[2019-05-29 15:54] LABS: BUN Blood Urea Nitrogen 16 mg/dL (7-18); Bicarbonate 25 mmol/L (21-32); Glucose Level 92 mg/dL (74-106); Potassium 3.8 mmol/L (3.5-5.1); Sodium Level 140 mmol/L (136-145)
[2019-05-30] MEDS ORDERED: CEFAZOLIN/SWI 1gm 1 GM/10 ML SYR ONE (11:49)
[2019-05-30] MEDS ORDERED: Ringers Lactate 1,000 ML IV ONE ×2 (11:49→15:22)
[2019-05-30] MEDS ORDERED: FENTANYL CITR 100 MCG/2 ML ONE ×3 (12:57→14:36)
[2019-05-30] MEDS ORDERED: propofoL 200 MG/20 ML VIAL IV ONE (12:57)
[2019-05-30] MEDS ORDERED: MIDAZOLAM HCL 2 MG/2 ML INJ ONE (12:58)
[2019-05-30] MEDS ORDERED: LIDOCAINE 2% MPF 5 ML VIAL ONE (12:58)
[2019-05-30] MEDS ORDERED: ONDANSETRON 4 MG/2 ML VIAL ONE ×2 (12:59→14:56)
[2019-05-30] MEDS ORDERED: FENTANYL CITR 100 MCG/2 ML IV ONE ×2 (13:00→13:20)
--- NOTE | 2019-05-30 14:34 | P.BOP ---
Preoperative diagnosis: left intraarticular distal radius fracture Postoperative diagnosis: same Primary procedure: ORIF with fixation of 2 intraarticular fragements Estimated blood loss: 5 cc Anesthesia: General Complications: None Transferred to: Recovery Room Condition: Good
[2019-05-30] MEDS: HYDROMORPHONE HCL 1 MG/ML INJ ONE ×4 (14:39→15:37)
[2019-05-30] MEDS: HYDROMORPHONE HCL 2 MG/ML inj ONE ×4 (14:49→15:17)
[2019-05-30] MEDS ORDERED: PROMETHAZINE INJ 25 MG/ML AMP ONE (15:06)
[2019-05-30] MEDS ORDERED: dexAMETHasone 10 MG/ML VIAL ONE (15:06)
[2019-05-30] MEDS ORDERED: MEPERIDINE HCL 50 MG/ML ONE (15:28)
[2019-05-30] MEDS ORDERED: HYDROMORPHONE HCL 1 MG/ML INJ ONE (15:29)
--- NOTE | 2019-05-30 15:32 | RAD REPORT ---
EXAM DESCRIPTION: RAD - Wrist Left 2 View - 05/30/2019 2:34 pm FINDINGS: There were 2 portable C-arm views submitted from fluoroscopic assisted placement of fractu re fixation hardware. No suspicious or unexpected findings. Fluoro time was 0.7 minutes
[2019-05-30 15:57] VITALS: O2SAT 96
[2019-05-30 17:56] VITALS: BP 101/62; TEMP 97.9
--- NOTE | 2019-05-31 02:07 | OP ---
Surgeon: Jesus Mckeon MD Preoperative Diagnosis: Left distal radius fracture. Postoperative Diagnosis: Left distal radius fracture. Procedure Performed: Left distal radius fracture open reduction and internal fixation using the Accu Med 2 volar radius plating system with 2 intra-articular fragments. Estimated Blood Loss: Less than 5 mL. Complications: There were no complications. Specimen: No pathology specimens sent. Indications For Operation: Ms. Reed is a 58-year-old female, who unfortunately fell and injured her left upper extremity. She was seen in the emergency department where she was found to have a distal radius fracture. She was sent to my office in a wrist brace. X-rays were reviewed, which revealed a small intra-articular split with a fairly significant apex volar angulation and displacement of the distal radius with comminution posteriorly. All risks, benefits, and alternatives of treating this have been discussed with the patient. She says she has a recent colostomy and cannot tolerate any lo ng-arm casting and wants to have as little casting as possible. We suggested the possibility of open reduction and internal fixation using a volar plate. She says she understands things as presented, this time selected us for treatment and agrees to proceed. Description Of Procedure: The patient was taken to the operating room and placed in supine position. General anesthesia was obtained by the staff. Following this, a well-padded tourniquet was placed on superior left arm. The left upper extremity was then prepped and draped in usual sterile fashion for the procedure. Following this, the arm was then elevated, but not exsanguinated. Tourniquet was raised. A standard volar approach of Alfie was then taken down carefully through the skin and soft tissues with a zigzag across the distal radius crease. This was taken down carefully through the ski n, only meticulous hemostasis being maintained using bipolar electrocautery. This leads directly to the tendon of the flexor carpi radialis. This was then uncovered and moved radialward to protect the radial artery. The underlying sheath was then exploited. The muscle and the tendon of the flexor p ollicis longus was then retracted ulnarward to protect the median nerve. This leads down directly to the pronator quadratus. Pronator quadratus was then divided in its mid substance and gently lifted off the radius using a wooden handle elevator, which leads directly to the fracture site. A closed r eduction maneuver was obtained, which revealed a fairly good reduction; however, it was difficult to reestablish a neutral or volar tilt. Therefore, the toggle screw was placed, but not completely tigh tened and an unlocked screw as well as pegs were then placed in the distal fragment. The toggle scre w was then tightened down bringing this back up to neutral. The styloid pins were then placed and th e distal screw was then replaced with the locking peg. After this, the remaining 2 radial screws are placed, they are checked for reduction as well as placement of a plate and length of screws. Biplan ar radiography appeared to be a good reduction. All the screws were checked to make sure that they w ere tight and the skin was then closed using interrupted nylon sutures in a horizontal mattress fashi on with the exception of the distal ones, which are simple sutures. She was then placed in a well-pa dded sterile dressing as well as a volar slab as she does not wish to have a sugar-tong splint. This was placed and she is awakened and taken to recovery room in good condition. There were no complica tions. /MODAshvin Voice ID: [id number] Report ID: [id number]
== END 2019-05-30 18:07 | disposition home or self-care (01) ==
LOC: OR 11:21
PROVIDERS: ATTEND Orthopaedic Surgery
PROC: 0PSJ04Z Reposition Left Radius with Internal Fixation Device, Open Approach (ICD-10-PCS; principal; 2019-05-30 12:30)
DX: S52.572A Other intraarticular fracture of lower end of left radius, initial encounter for closed fracture (principal); I10 Essential (primary) hypertension; K21.9 Gastro-esophageal reflux disease without esophagitis; L40.9 Psoriasis, unspecified; F17.200 Nicotine dependence, unspecified, uncomplicated; Z93.3 Colostomy status
CPT/HCPCS: 85025; 80048; 36415; 73100; 25608; J2704; J2550; J2250; J1170 ×3; J3010 ×5; J1100; J2175; J0690; J7120 ×2; J2405 ×2

== ENCOUNTER 2019-07-17 12:43 | Emergency (ER) | payer BC ==
[2019-07-17] MEDS ORDERED: MORPHINE 4 MG/ML SYR ONE (14:17)
[2019-07-17] MEDS ORDERED: ONDANSETRON 4 MG/2 ML VIAL ONE (14:17)
[2019-07-17] MEDS ORDERED: NA CHLORIDE 0.9% 500 ML ONE (14:17)
[2019-07-17 14:33] LABS: Absolute Lymphocytes (CBC) 1.7 K/uL (0.7-4.9); Basophils % 0.3 % (0-1.3); Hematocrit 44.9 % (36.0-45.0); Lymphocytes % 14.4 % (15.3-44.8); RBC Red Blood Cell Count 4.97 M/uL (3.86-4.86)
[2019-07-17 14:50] LABS: Albumin 4.1 g/dL (3.4-5.0); Bilirubin Direct 0.2 mg/dL (0-0.2); Bilirubin Total 0.5 mg/dL (0.2-1.0); Potassium 3.9 mmol/L (3.5-5.1); Protein, Total 8.1 g/dL (6.4-8.2)
[2019-07-17] MEDS ORDERED: MEPERIDINE HCL 25 MG/0.5 ML ONE (15:41)
--- NOTE | 2019-07-17 16:22 | RAD REPORT ---
EXAM DESCRIPTION: CT - Abdomen Pelvis W Contrast - 07/17/2019 3:58 pm CLINICAL HISTORY: colostomy and known luminal narrowing, eval for ob;Abd pain COMPARISON: Abdomen Pelvis W Contrast dated 03/17/2019 TECHNIQUE: Biphasic, helical CT imaging of the abdomen and pelvis was performed following 100 ml non -ionic IV contrast. Oral contrast was given. All CT scans are performed using dose optimization technique as appropriate and may include automated exposure control or mA/KV adjustment according to patient size. FINDINGS: No suspicious findings in the lung bases. The liver, spleen, and pancreas show no suspicious findings. Gallbladder and biliary tree are also wi thout suspicious finding. Symmetric renal function is seen with no hydronephrosis or suspicious renal mass. No pyelonephritis o r acute parenchymal process. No bladder abnormalities. No adrenal abnormalities. Uterus and ovaries s how no suspicious findings. No gastric dilatation or wall thickening. No dilated small bowel loops. Right mid abdomen ostomy site is present. This contains a diverting ileostomy and the diverted proximal right side colon. Oral CT contrast has reached the ostomy bag. Stool is present in the segment of colon within the ostomy. Hailey ent has peristomal hernia containing fat. The colon within the ostomy is redundant. The hernia is 8 c m in diameter with a 3.5 centimeter neck at the abdominal wall. No acute colon finding confirmed. No free air, free fluid or inflammatory stranding. No mass or bulky lymphadenopathy. No omental thi ckening. No suspicious bony findings. IMPRESSION: No obstruction, free air or surgically emergent finding. Patient has a right mid abdomen ostomy site containing a diverting ileostomy and the proximal portion of the colon. Peristomal 8-9 centimeter hernia is present. The abdominal ostomy neck is 3.5 cm in diameter. The col on within the hernia is redundant.
--- NOTE | 2019-07-17 16:46 | EDPHYS ---
Physician Documentation [facility] Name: Elsy Reed Age: 58 yrs Sex: Female : 1960 Arrival Date: 07/17/2019 Time: 12:45 Bed 14 Private MD: Airam Zendejas H ED Physician Jesu Templeton HPI: 07/17 15:37 This 58 yrs old Female presents to ER via Ambulatory with complaints of rn Abdominal Pain. 15:37 The patient presents with abdominal pain in the lower abdomen. Onset: The rn symptoms/episode began/occurred today. The symptoms do not radiate. Associated signs and symptoms: Pertinent positives: nausea, Pertinent negatives: blood in stools, chest pain, constipation, diarrhea, dysuria, fever. The symptoms are described as achy, crampy, intermittent. Modifying factors: The symptoms are alleviated by nothing, the symptoms are aggravated by nothing. Severity of pain: At its worst the pain was moderate in the emergency department the pain has improved. The patient has experienced similar episodes in the past. Historical: - Allergies: 13:00 No Known Allergies; ca1 - Home Meds: 15:23 Zyrtec Oral [Active]; Nexium Oral [Active]; irbesartan Oral [Active]; tw2 - PMHx: 13:00 Hypertension; Diverticulitis; Gastric Reflux; ca1 - PSHx: 13:00 Tubal ligation; Colostomy; ca1 - Immunization history:: Adult Immunizations up to date, Flu vaccine is not up to date. - Coronavirus screen:: The patient has NOT traveled to [place], [place], or [place] in the past 14 days. The patient has NOT had contact with known/suspected case of Coronavirus?. - Social history:: Smoking status: Patient reports the use of cigarette tobacco products, smokes one pack cigarettes per day. - Family history:: not pertinent. - Ebola Screening: : Patient negative for fever greater than or equal to 101.5 degrees Fahrenheit, and additional compatible Ebola Virus Disease symptoms Patient denies exposure to infectious person Patient denies travel to an Ebola-affected area in the 21 days before illness onset No symptoms or risks identified at this time. - Hospitalizations: : No recent hospitalization is reported. ROS: 15:37 Constitutional: Negative for fever, chills, and weight loss, Eyes: Negative for injury, rn pain, redness, and discharge, Cardiovascular: Negative for chest pain, palpitations, and edema, Respiratory: Negative for shortness of breath, cough, wheezing, and pleuritic chest pain, Abdomen/GI: + abd pain with nausea, no vomiting MS/Extremity: Negative for injury and deformity, Skin: Negative for injury, rash, and discoloration, Neuro: Negative for headache, weakness, numbness, tingling, and seizure. Exam: 15:37 Constitutional: This is a well developed, well nourished patient who is awake, alert, rn and in no acute distress. Head/Face: Normocephalic, atraumatic. ENT: MMM Cardiovascular: Regular rate and rhythm. No pulse deficits. Respiratory: No increased work of breathing, no retractions or nasal flaring. Speaking full sentences Abdomen/GI: soft, mild RLQ and LLQ tenderness, no rebound, ostomy bag lower abd with stool, no blood. MS/ Extremity: Pulses equal, no cyanosis. Neurovascular intact. Full, normal range of motion. Equal circumference. Neuro: Awake and alert, GCS 15 Vital Signs: 13:00 BP 179 / 97; Pulse 73; Resp 18 S; Temp 97.7(O); Pulse Ox 100% on R/A; Weight 74.34 kg ca1 (M); Height 4 ft. 11 in. (149.86 cm) (R); Pain 8/10; 13:49 BP 155 / 81; Pulse 65; Resp 17; Pulse Ox 99% on R/A; Pain 8/10; tw2 15:00 BP 152 / 105; Pulse 59; Resp 17; Pulse Ox 96% on R/A; tw2 16:16 BP 113 / 91; Pulse 61; Resp 17; Pulse Ox 98% on R/A; tw2 16:58 BP 119 / 76; Pulse 60; Resp 17; Pulse Ox 98% on R/A; tw2 13:00 Body Mass Index 33.10 (74.34 kg, 149.86 cm) ca1 MDM: 14:07 Patient medically screened. rn 16:43 Differential diagnosis: obstruction, hernia, volvulus. Data reviewed: vital signs, rn nurses notes, lab test result(s), radiologic studies, CT scan, and as a result, I will discharge patient. Counseling: I had a detailed discussion with the patient and/or guardian regarding: the historical points, exam findings, and any diagnostic results supporting the discharge/admit diagnosis, lab results, radiology results, the need for outpatient follow up, to return to the emergency department if symptoms worsen or persist or if there are any questions or concerns that arise at home. Response to treatment: the patient's symptoms have mildly improved after treatment, and as a result, I will discharge patient. Special discussion: Based on the patient's Hx, exam, and Dx evaluation, there is no indication for emergent surgery or inpatient Tx. It is understood by the patient/guardian that if the Sx's persist or worsen they need to return immediately for re-evaluation. I discussed with the patient/guardian in detail that at this point there is no indication for admission to the hospital. It is understood, however, that if the symptoms persist or worsen the patient needs to return immediately for re-evaluation. ED course: No acute findings on ct or bloodwork, has f/u tomorrow, will dc home with return precautions.. 07/17 14:12 Order name: Basic Metabolic Panel; Complete Time: 15: rn 07/17 14:12 Order name: CBC with Diff; Complete Time: : rn 07/17 14:12 Order name: Creatinine for Radiology; Complete Time: : rn 07/17 14:12 Order name: Hepatic Function; Complete Time: : rn 07/17 14:12 Order name: Lipase; Complete Time: 15: rn 07/17 14:12 Order name: CT Abd/Pelvis - PO and IV Contrast; Complete Time: 16:32 rn 07/17 14:12 Order name: IV Saline Lock; Complete Time: 14: rn 07/17 14:12 Order name: Labs collected and sent; Complete Time: 14: rn Administered Medications: 14:25 Drug: Zofran 4 mg Route: IVP; Site: right antecubital; tw2 17:01 Follow up: Response: No adverse reaction tw2 14:28 Drug: morphine 4 mg Route: IVP; Site: right antecubital; tw2 17:00 Follow up: Response: No adverse reaction tw2 14:29 Drug: NS 0.9% 500 ml Route: IV; Rate: bolus; Site: right antecubital; tw2 15:30 Follow up: Response: No adverse reaction; IV Status: Completed infusion; IV Intake: tw2 500ml 15:42 Drug: Demerol 25 mg {Note: RASS 0.} Route: IVP; Site: right antecubital; tw2 16:30 Follow up: Response: No adverse reaction; Pain is decreased; RASS: Alert and Calm (0) tw2 Disposition: 07/17/19 16:46 Discharged to Home. Impression: Unspecified abdominal pain. - Condition is Stable. - Discharge Instructions: Abdominal Pain, Adult. - Medication Reconciliation Form, Thank You Letter, Antibiotic Education, Prescription Opioid Use, Work release form form. - Follow up: Private Physician; When: As needed; Reason: Recheck today's complaints, Re-evaluation by your physician. - Problem is new. - Symptoms have improved. Signatures: Dispatcher [employer] EDMS Jesu Templeton MD MD rn Wise, Tara, RN RN tw2 Jyoti, Merlyn RN RN ca1 Corrections: (The following items were deleted from the chart) 17:00 16:46 07/17/2019 16:46 Discharged to Home. Impression: Unspecified abdominal pain. tw2 Condition is Stable. Forms are Work release form, Medication Reconciliation Form, Thank You Letter, Antibiotic Education, Prescription Opioid Use. Follow up: Private Physician; When: As needed; Reason: Recheck today's complaints, Re-evaluation by your physician. Problem is new. Symptoms have improved. rn 17:05 17:00 07/17/2019 16:46 Discharged to Home. Impression: Unspecified abdominal pain. tw2 Condition is Stable. Discharge Instructions: Abdominal Pain, Adult. Forms are Work release form, Medication Reconciliation Form, Thank You Letter, Antibiotic Education, Prescription Opioid Use. Follow up: Private Physician; When: As needed; Reason: Recheck today's complaints, Re-evaluation by your physician. Problem is new. Symptoms have improved. tw2
--- NOTE | 2019-07-17 16:59 | ER ---
Nurse's Notes [facility] Name: Elsy Reed Age: 58 yrs Sex: Female : 1960 Arrival Date: 07/17/2019 Time: 12:45 Bed 14 Private MD: Airam Zendejas H Diagnosis: Unspecified abdominal pain Presentation: 07/17 12:53 Presenting complaint: Patient states: Abdominal pain since last night. Worst today. ca1 Back in February, they did emergency surgery in [place] for perforation. I have a colostomy now. I have an appointment tomorrow to plan the next surgery but pain started last night. I called my doctor today and they told me to come to the nearest ER. The pain feels like before the surgery, like in the beginning of it. I feel very nauseated right now. Denies fever and vomiting at this time. Transition of care: patient was not received from another setting of care. Onset of symptoms was July 16, 2019. Risk Assessment: Do you want to hurt yourself or someone else? Patient reports no desire to harm self or others. Initial Sepsis Screen: Does the patient meet any 2 criteria? No. Patient's initial sepsis screen is negative. Does the patient have a suspected source of infection? No. Patient's initial sepsis screen is negative. Care prior to arrival: None. 12:53 Method Of Arrival: Ambulatory ca1 12:53 Acuity: OMAIRA 3 ca1 Historical: - Allergies: 13:00 No Known Allergies; ca1 - Home Meds: 15:23 Zyrtec Oral [Active]; Nexium Oral [Active]; irbesartan Oral [Active]; tw2 - PMHx: 13:00 Hypertension; Diverticulitis; Gastric Reflux; ca1 - PSHx: 13:00 Tubal ligation; Colostomy; ca1 - Immunization history:: Adult Immunizations up to date, Flu vaccine is not up to date. - Coronavirus screen:: The patient has NOT traveled to [place], [place], or [place] in the past 14 days. The patient has NOT had contact with known/suspected case of Coronavirus?. - Social history:: Smoking status: Patient reports the use of cigarette tobacco products, smokes one pack cigarettes per day. - Family history:: not pertinent. - Ebola Screening: : Patient negative for fever greater than or equal to 101.5 degrees Fahrenheit, and additional compatible Ebola Virus Disease symptoms Patient denies exposure to infectious person Patient denies travel to an Ebola-affected area in the 21 days before illness onset No symptoms or risks identified at this time. - Hospitalizations: : No recent hospitalization is reported. Screenin:06 Abuse screen: Denies threats or abuse. Nutritional screening: No deficits noted. tw2 Tuberculosis screening: No symptoms or risk factors identified. Fall Risk None identified. Assessment: 13:10 General: Appears uncomfortable, Behavior is cooperative, appropriate for age. Pain: tw2 Complains of pain in abdomen. Neuro: Level of Consciousness is awake, alert, obeys commands, Oriented to person, place, time, situation. Cardiovascular: Heart tones S1 S2 Patient's skin is warm and dry. Respiratory: Airway is patent Respiratory effort is even, unlabored, Respiratory pattern is regular, symmetrical, Breath sounds are clear bilaterally. GI: Abdomen is flat, Colostomy site is clean and dry. Ostomy appliance is intact. to lower RIGHT quadrant Bowel sounds present X 4 quads. Abd is soft X 4 quads Abdomen is tender to palpation in right lower quadrant and left lower quadrant. GI: Reports lower abdominal pain, upper abdominal pain, constipation. : No signs and/or symptoms were reported regarding the genitourinary system. EENT: No signs and/or symptoms were reported regarding the EENT system. Derm: No signs and/or symptoms reported regarding the dermatologic system. Musculoskeletal: Range of motion: intact in all extremities. 13:49 Reassessment: No changes from previously documented assessment. Patient and/or family tw2 updated on plan of care and expected duration. Pain level reassessed. Patient is alert, oriented x 3, equal unlabored respirations, skin warm/dry/pink. Patient states symptoms have not improved. 15:00 Reassessment: No changes from previously documented assessment. Patient and/or family tw2 updated on plan of care and expected duration. Pain level reassessed. Patient is alert, oriented x 3, equal unlabored respirations, skin warm/dry/pink. 16:16 Reassessment: Patient appears in no apparent distress at this time. Patient and/or tw2 family updated on plan of care and expected duration. Pain level reassessed. Patient is alert, oriented x 3, equal unlabored respirations, skin warm/dry/pink. 16:58 Reassessment: Patient appears in no apparent distress at this time. No changes from tw2 previously documented assessment. Patient and/or family updated on plan of care and expected duration. Pain level reassessed. Patient is alert, oriented x 3, equal unlabored respirations, skin warm/dry/pink. Vital Signs: 13:00 BP 179 / 97; Pulse 73; Resp 18 S; Temp 97.7(O); Pulse Ox 100% on R/A; Weight 74.34 kg ca1 (M); Height 4 ft. 11 in. (149.86 cm) (R); Pain 8/10; 13:49 BP 155 / 81; Pulse 65; Resp 17; Pulse Ox 99% on R/A; Pain 8/10; tw2 15:00 BP 152 / 105; Pulse 59; Resp 17; Pulse Ox 96% on R/A; tw2 16:16 BP 113 / 91; Pulse 61; Resp 17; Pulse Ox 98% on R/A; tw2 16:58 BP 119 / 76; Pulse 60; Resp 17; Pulse Ox 98% on R/A; tw2 13:00 Body Mass Index 33.10 (74.34 kg, 149.86 cm) ca1 ED Course: 12:45 Patient arrived in ED. ag5 12:46 Airam Zendejas DO is Private Physician. ag5 12:58 Triage completed. ca1 13:00 Arm band placed on right wrist. ca1 13:02 Bed in low position. Call light in reach. tw2 13:05 Isi Garces, SALLY is Primary Nurse. tw2 14:07 Jesu Templeton MD is Attending Physician. rn 14:20 Inserted saline lock: 22 gauge in right antecubital area, using aseptic technique. tw2 Blood collected. Missed attempt(s): 22 gauge in right antecubital area. Bleeding controlled, band aid applied, catheter tip intact. 15:58 CT Abd/Pelvis - PO and IV Contrast In Process Unspecified. EDMS 16:59 No provider procedures requiring assistance completed. IV discontinued, intact, tw2 bleeding controlled, No redness/swelling at site. Pressure dressing applied. Administered Medications: 14:25 Drug: Zofran 4 mg Route: IVP; Site: right antecubital; tw2 17:01 Follow up: Response: No adverse reaction tw2 14:28 Drug: morphine 4 mg Route: IVP; Site: right antecubital; tw2 17:00 Follow up: Response: No adverse reaction tw2 14:29 Drug: NS 0.9% 500 ml Route: IV; Rate: bolus; Site: right antecubital; tw2 15:30 Follow up: Response: No adverse reaction; IV Status: Completed infusion; IV Intake: tw2 500ml 15:42 Drug: Demerol 25 mg {Note: RASS 0.} Route: IVP; Site: right antecubital; tw2 16:30 Follow up: Response: No adverse reaction; Pain is decreased; RASS: Alert and Calm (0) tw2 Intake: 15:30 IV: 500ml; Total: 500ml. tw2 Outcome: 16:46 Discharge ordered by . rn 16:59 Discharged to home ambulatory. tw2 16:59 Condition: stable 16:59 Discharge instructions given to patient, Instructed on discharge instructions, follow up and referral plans. Demonstrated understanding of instructions, follow-up care. 17:00 Patient left the ED. tw2 17:05 Patient left the ED. tw2 Signatures: Dispatcher [employer] EDMS Jesu Templeton MD MD rn Wise, Tara, RN RN tw2 Merlyn Montes RN RN ca1 Toby Navarro ag5 Corrections: (The following items were deleted from the chart) 13:03 13:00 BP 179 / 97; Pulse 73bpm; Resp 18bpm; Spontaneous; Pulse Ox 100% RA; Temp 97.7F ca1 Oral; Height 4 ft. 11 in. Reported; Pain 8/10; ca1
[2019-07-17 20:27] VITALS: TEMP 97.7
[2019-07-17 20:32] VITALS: O2SAT 98
[2019-07-17 20:33] VITALS: BP 119/76
== END 2019-07-17 17:05 | disposition home or self-care (01) ==
LOC: ER 12:43
DX: R10.30 Lower abdominal pain, unspecified (principal); I10 Essential (primary) hypertension
CPT/HCPCS: 96361; 85025; 80048; 36415; 80076; 83690; 74177; 96375; 96374; 99284; Q9967; J2175; J7040; J2405

== ENCOUNTER 2020-08-19 06:12 | Inpatient (IN) | payer BC ==
--- OUTSIDE RECORDS SUMMARY | 2020-08-19 06:16 | XMS REPORT | Continuity of Care Document ---
:1960 Author Organization [facility] t Address [address] [place] [address] Care Team Providers Name Role Phone Alessandra Servin MD Primary Care Physician Rafael Antunez MD Attending Clinician Shelli Nieto Attending Clinician [phone] Kahlil Sutton MD Attending Clinician [place] Admitting Clinician Unavailable Payers Payer Name Policy Type Policy Effective Date Expiration Date [facility] Number BCBSBCBS CHOICE [id number] 2019 [place] PPO/FEDERAL 00:00:00 [facility] EMPL [id number] 2019-Presen tPPO Problems Condition Condition Condition Status Onset Resolution Last Treating Co mments Source Name Details Category Date Date Treatment Clinician Date Pneumoperi Pneumoperi Disease Active 2019- [place] tone[facility] toneum 0-01 Method[facility] 00:00: st 00 Allergies, Adverse Reactions, Alerts Allergy Allergy Status Severity Reaction(s) Onset Inactive Treating Comm ents Source Name Type Date Date Clinician No Known DA Active U 2020-0 [facility]ie 4-03 [facility] 00:[facility]: [facility] 00 [facility] No Known DA Active U 2019-0 [facility] Allergie 2- [facility] 00 [facility] No Known DA Active U 2001- [facility] Contrast 8-16 [facility] [place] No Known DA Active U 2001- [facility] Drug 8-16 [facility] [place] No Known DA Active U 2001- [facility] Food 8-16 [facility] [place] No Known DA Active U 2001- [facility] Other 8-16 [facility] [place] Family History Family Member Diagnosis Comments Start Date Stop Date Source Maternal grandmother Breast cancer [facility] Natural father Heart attack [facility] Natural father Hypertension [facility] Social History Social Habit Start Date Stop Date Quantity Comments Source History of tobacco Cigarette Smoker [place] use [facility] History [facility] Alcohol Frequency Methodi st History [facility] Alcohol Std Drinks Method ist Sex Assigned At [facility] Cigarettes smoked 2019-08-23 2019-08-23 [place] current (pack per 00:00:00 00:00:[address] day) - Reported Cigarette 2019-08-23 2019-08-23 [place] pack-years 00:00:00 00:00:00 [facility] Tobacco use and 2019-08-23 2019-08-23 Never used [facility] exposure 00:00:00 00:00:00 [facility] Alcohol intake 2019-08-23 2019-08-23 Current drinker [place] 00:00:00 00:00:00 of alcohol [facility] (finding) History [facility] 2019-03-18 2019-03-18 4 [place] Alcohol Binge 00:00:00 00:00:00 [facility] Smoking Status Start Date Stop Date Source Current every day smoker 2019-08-23 00:00:00 Nicolasa lang [facility] Medications Ordered Filled Start Stop Current Ordering Indication Dosage Frequency Signature Comments Components Source Medication Medication Date Date Medication? Clinician (SIG) Name Name ondansetron Yes 4mg Q8H Take 1 [place] (ZOFRAN) 4 3-07 tablet (4 Meth francisca MG tablet 00:00: mg total) st by mouth every 8 (eight) hours as needed for nausea or vomiting for up to 20 doses. acetaminoph 2020- No acute pain 1{tbl} Q6H Take 1-2 [facility] en-codeine 3-07 03-17 tablets by Me th[facility] (TYLENOL 00:00: 23:[address] WITH 00 :00 every 6 CODEINE #3) (six) 300-30 mg hours as per tablet needed for moderate pain for up to 10 days .acute pain. irbesartan 2019-0 Yes 150mg QD Take 150 [place] (AVAPRO) 8-05 mg by Methodi 150 MG 00:00: mouth st tablet 00 daily. Vital Signs Vital Name Observation Time Observation Value Comments Source Systolic blood 2019-08-23 17:14:00 144 mm[Hg] Jagdeep n [facility] pressure Diastolic blood 2019-08-23 17:14:00 70 mm[Hg] Minerva on [facility] pressure Heart rate 2019-08-23 17:14:00 70 /min Bear Arias Body temperature 2019-08-23 17:14:00 36.67 Alexus Flip Arias Respiratory rate 2019-08-23 17:14:00 18 /min Flip Arias Oxygen saturation in 2019-08-23 17:14:00 99 /min Bear Arias Arterial blood by Pulse oximetry Body height 2019-08-23 14:03:00 152.4 cm Bear Arias Body weight 2019-08-23 14:03:00 78.926 kg Bear Arias BMI 2019-08-23 14:03:00 33.98 kg/m2 Bear Arias Procedures Procedure Date / Time Performed Performing Clinician Sourc e [place] COLON GASTROGRAFIN 2019-09-18 14:03:54 Minerva Villaseñorist WATER SOLUBLE ENEMA Marion Marques CT ABDOMEN PELVIS W 2019-08-23 14:57:08 Arleen Sutton on [facility] CONTRAST HC COMPLETE BLD COUNT 2019-08-23 14:25:00 Arleen Sutton [facility] W/AUTO DIFF COMPREHENSIVE METABOLIC 2019-08-23 14:25:00 Arleen Sutton [facility] PANEL LIPASE LEVEL 2019-08-23 14:25:00 Arleen Suttonodist ESTIMATED GFR 2019-08-23 14:25:00 Arleen Suttonst COMPREHENSIVE METABOLIC 2019-08-22 12:01:00 Flip Villaseñor [facility] PANEL [facility] COMPLETE BLD COUNT 2019-08-22 12:01:00 JessikasadiJagdeep [place] [facility] W/AUTO DIFF Marion Marques ESTIMATED GFR 2019-08-22 12:01:00 JessikasadiBear stallworth Meth odist Marion Marques Plan of Care Planned Activity Planned Date Details Comments Source Future Scheduled 2022-03-18 Screening for [place] [facility] Test 00:00:00 malignant neoplasm of cervix (procedure) [code = 707771484] Future Scheduled 2020-01-17 INFLUENZA VACCINE [place] [facility] Test 00:00:00 [code = INFLUENZA VACCINE] Future Scheduled 2010 BREAST CANCER [place] [facility] Test 00:00:00 SCREENING [code = BREAST CANCER SCREENING] Future Scheduled 2010 COLONOSCOPY SCREENING [place] [facility] Test 00:00:00 [code = COLONOSCOPY SCREENING] Future Scheduled 2010 SHINGLES VACCINES [place] [facility] Test 00:00:00 (#1) [code = SHINGLES VACCINES (#1)] Future Scheduled 1978 Hepatitis C screening [place] [facility] Test 00:00:00 (procedure) [code = 878047288] Future Scheduled 1976 COVID-19 VACCINE (1 [place] [facility] Test 00:00:00 of 2) [code = COVID-19 VACCINE (1 of 2)] Encounters Start End Encounter Admission Attending Care Care Encounter Source Date/Time Date/Time Type Type Clinicians Facility Department ID 2019-09-18 2019-09-18 Outpatient ANTUNEZ, EITAN [facility] [id number] [place] 00:00:00 00:00:[address] 2019-08-23 2019-08-23 Emergency YUDI, [facility] [id number] [place] 00:00:00 00:00:00 ARLEEN [address] 2019-08-22 2019-08-22 [facility] [id number] [place] 00:00:00 00:00:[address] 2019-03-17 2019-03-25 Inpatient ANTUNEZ, [facility] [id number] [place] 00:00:00 00:00:[address] Results Test Description Test Time Test Comments Results Result Sourc e Comments SURGICAL SPECIMENS 2019-09-24 10:31:00 --------RUN DATE: 09/24/19 [facility] - LAB PAGE 1 RUN TIME: 1031 Specimen Inquiry RUN USER: INTERFACE --------PATIENT: VIN JOSEPH LOC: Naomy APRIL C U #: [id number] AGE/SX: 58/F ROOM: [facility] RE09/19/19REG DR: Eitan Antunez MD : 60 BED: 1 DIS: 09/22/19 STATUS: DIS IN TLOC: -------- SPEC #: [id number] RECD: 09/22/19 STATUS: SOUT REQ #: [id number] ROXANNA: 09/19/[address] [facility] [address]: Eitan Antunez MD ENTERED: 09/22/19 SP TYPE: SURG OTHR DR: ORDERED: PATHGM3, PATH SPEC, H E STAIN HISTOLOGY: TISSUE ID BLK PCS SURYA LEV / PROCEDURE DISPOSITION ____ ___ ___ ___ ___ ILEOSTOMY A 2 1 TISSUES: A. ILEOSTOMY - Ileostomy And Cecum CLINICAL HISTORY Ileostomy FINAL DIAGNOSIS ILEOSTOMY AND CECUM: - Colon and small intestinal mucosa with reactive changes, negative for dysplasia and malignancy. - Focal squamous epithelium with reactive changes, negative for atypia and malignancy. GROSS DESCRIPTION Specimen received in formalin in a container labeled "ileostomy and cecum". It consists of a segment of cecum with attached ileum and a ring-shaped ostomy site. The ileal portion measures 5 cm in length with a diameter of 1.8 cm and is lined by a feliz mucosa. The serosal surface is smooth and feliz. The attached cecal pouch measures 4 cm in length with a diameter of 3.5 cm. The serosal surface of the cecum is feliz, smooth. The mucosal surface is also feliz and unremarkable. The attached mesoappendix measures 3 cm in length, 0.4 cm in diameter and has a feliz smooth serosal surface with a 3.5 x 1.8 x 1 cm attached mesoappendix. There is a ring-shaped 2 cm in diameter ostomy site with a dark red mucosa and there is a segment of small bowel attached to it that measures 2.5 cm in length and 1.5 cm in diameter which has a feliz, smooth serosal surface and a green-feliz mucosal surface. Log Stacker Operator sections of appendix and cecum are submitted in A1. Log Stacker Operator sections of ileum and ostomy site are submitted in A2. DOUGLAS/luz Signed SIGNATURE ON FILE Funmi Hall MD 09/24/19 1031 -------- END OF REPORT SURGICAL SPECIMENS 2019-09-24 10:31:00 --------RUN DATE: 09/24/19 [facility] - LAB PAGE 1 RUN TIME: 1031 Specimen Inquiry RUN USER: INTERFACE --------PATIENT: IVN JOSEPH LOC: Mariola APRIL Fowler U #: [id number] AGE/SX: 58/F ROOM: [facility] RE09/19/19REG DR: Eitan Antunez MD : 60 BED: 1 DIS: 09/22/19 STATUS: DIS IN TLOC: -------- SPEC #: [id number] RECD: 09/22/19 STATUS: SOUT REQ #: [id number] ROXANNA: 09/19/[address] [facility] [address]: Eitan Antunez MD ENTERED: 09/22/19-1099 SP TYPE: SURG OTHR DR: ORDERED: PATHGM3, PATH SPEC, H E STAIN HISTOLOGY: TISSUE ID BLK PCS SURYA LEV / PROCEDURE DISPOSITION ____ ___ ___ ___ ___ ILEOSTOMY A 2 1 TISSUES: A. ILEOSTOMY - Ileostomy And Cecum CLINICAL HISTORY Ileostomy FINAL DIAGNOSIS ILEOSTOMY AND CECUM: - Colon and small intestinal mucosa with reactive changes, negative for dysplasia and malignancy. - Focal squamous epithelium with reactive changes, negative for atypia and malignancy. GROSS DESCRIPTION Specimen received in formalin in a container labeled "ileostomy and cecum". It consists of a segment of cecum with attached ileum and a ring-shaped ostomy site. The ileal portion measures 5 cm in length with a diameter of 1.8 cm and is lined by a feliz mucosa. The serosal surface is smooth and feliz. The attached cecal pouch measures 4 cm in length with a diameter of 3.5 cm. The serosal surface of the cecum is feliz, smooth. The mucosal surface is also feliz and unremarkable. The attached mesoappendix measures 3 cm in length, 0.4 cm in diameter and has a feliz smooth serosal surface with a 3.5 x 1.8 x 1 cm attached mesoappendix. There is a ring-shaped 2 cm in diameter ostomy site with a dark red mucosa and there is a segment of small bowel attached to it that measures 2.5 cm in length and 1.5 cm in diameter which has a feliz, smooth serosal surface and a green-feliz mucosal surface. Log Stacker Operator sections of appendix and cecum are submitted in A1. Log Stacker Operator sections of ileum and ostomy site are submitted in A2. MCB/th Signed SIGNATURE ON FILE Funmi Hall MD 09/24/19 1031 -------- END OF REPORT BASIC METABOLIC PANEL 2019-09-22 05:42:00 Test Item Value Reference Range Interpretation Comme nts SODIUM (test code = NA) 138 MMOL/L 136-143 N POTASSIUM (test code = K) 4.6 MMOL/L 3.5-5.1 N CHLORIDE (test code = CL) 106 MMOL/L 98-107 N CARBON DIOXIDE (test code = 23 mmol/L 24-31 L CO2) GLUCOSE (test code = GLU) 96 mg/dL 70-104 N BLOOD UREA NITROGEN (test 4.7 MG/DL 7.0-21.0 L code = BUN) GLOMERULAR FILTRATION RATE >=60 max estimate >60 The estimated glomerular (test code = GFR) filtration rate is computed usingpatient ra ce, age (>18), sex, and serum creatinine. If anyof the neede d data elements are mi ssing the [facility] ot compute an estimation of t he glomerular filtration rate . CREATININE (test code = 0.6 mg/dL 0.8-1.5 L CREAT) CALCIUM (test code = CA) 8.6 mg/dL 8.8-10.2 L [id number] 05:34:00 Test Item Value Reference Range Interpretation Comments MAGNESIUM (test code = MAG) 1.7 mg/dL 1.4-2.6 N CBC W/AUTO [id number] 05:14:00 Test Item Value Reference Range Interpretation Comments WHITE BLOOD CELL (test code = 11.0 x10 3/uL 4.8-10.8 H WBC) RED BLOOD CELL (test code = 3.26 x10 6/uL 4.20-5.40 L RBC) HEMOGLOBIN (test code = HGB) 9.7 g/dL 14.5-20 L HEMATOCRIT (test code = HCT) 31.7 % 37.0-47.0 L MEAN CELL VOLUME (test code = 97.2 fL 81.0-99.0 N MCV) MEAN CELL HGB (test code = MCH) 29.8 pg 27-31 N MEAN CELL HGB CONCENTRATION 30.6 G/DL 33-36.5 L (test code = MCHC) RED CELL DISTRIBUTION WIDTH 14.3 % 12.9-16.9 N (test code = RDW) PLATELET COUNT (test code = 204 150-440 N PLT) MEAN PLATELET VOLUME (test code 10.7 fL 8.9-12.4 N = MPV) NEUTROPHIL % (test code = NT%) 66.8 % 42.2-75.2 N LYMPHOCYTE % (test code = LY%) 20.3 % 20.5-51.1 L MONOCYTE % (test code = MO%) 7.7 % 1.7-9.3 N EOSINOPHIL % (test code = EO%) 4.6 % 0.0-7.0 N BASOPHIL % (test code = BA%) 0.3 % 0-2.5 N NEUTROPHIL # (test code = NT#) 7.34 x10 3/uL 1.80-7.70 N LYMPHOCYTE # (test code = LY#) 2.23 x10 3/uL 1.00-4.80 N MONOCYTE # (test code = MO#) 0.85 x10 3/uL 0.00-0.80 H EOSINOPHIL # (test code = EO#) 0.51 x10 3/uL 0.00-0.45 H BASOPHIL # (test code = BA#) 0.03 x10 3/uL 0.0-0.20 N BASIC METABOLIC [id number] 05:59:00 Test Item Value Reference Range Interpretation Comments SODIUM (test code 135 MMOL/L 136-143 L = NA) POTASSIUM (test 4.1 MMOL/L 3.5-5.1 N code = K) CHLORIDE (test 103 MMOL/L 98-107 N code = CL) CARBON DIOXIDE 19 mmol/L 24-31 L (test code = CO2) GLUCOSE (test code 87 mg/dL 70-104 N = GLU) BLOOD UREA 5.3 MG/DL 7.0-21.0 L NITROGEN (test code = BUN) GLOMERULAR >=60 max >60 The estimated FILTRATION RATE estimate glomerular (test code = GFR) filtration rate is computed usingpatient ra ce, age (>18), sex, and serum creatinin e. If anyof the neede d data elements a re missing the Laboratory [facility] ot compute an estimation of t he glomerular filtration rate . CREATININE (test 0.5 mg/dL 0.8-1.5 L code = CREAT) CALCIUM (test code 8.3 mg/dL 8.8-10.2 L = CA) [id number] 05:59:00 Test Item Value Reference Range Interpretation Comments MAGNESIUM (test code = MAG) 1.7 mg/dL 1.4-2.6 N CBC W/AUTO [id number] 05:07:00 Test Item Value Reference Range Interpretation Comments WHITE BLOOD CELL (test code = 11.4 x10 3/uL 4.8-10.8 H WBC) RED BLOOD CELL (test code = 3.12 x10 6/uL 4.20-5.40 L RBC) HEMOGLOBIN (test code = HGB) 9.3 g/dL 14.5-20 L HEMATOCRIT (test code = HCT) 30.0 % 37.0-47.0 L MEAN CELL VOLUME (test code = 96.2 fL 81.0-99.0 N MCV) MEAN CELL HGB (test code = MCH) 29.8 pg 27-31 N MEAN CELL HGB CONCENTRATION 31.0 G/DL 33-36.5 L (test code = MCHC) RED CELL DISTRIBUTION WIDTH 14.4 % 12.9-16.9 N (test code = RDW) PLATELET COUNT (test code = 192 150-440 N PLT) MEAN PLATELET VOLUME (test code 10.9 fL 8.9-12.4 N = MPV) NEUTROPHIL % (test code = NT%) 69.2 % 42.2-75.2 N LYMPHOCYTE % (test code = LY%) 18.8 % 20.5-51.1 L MONOCYTE % (test code = MO%) 9.5 % 1.7-9.3 H EOSINOPHIL % (test code = EO%) 2.0 % 0.0-7.0 N BASOPHIL % (test code = BA%) 0.2 % 0-2.5 N NEUTROPHIL # (test code = NT#) 7.91 x10 3/uL 1.80-7.70 H LYMPHOCYTE # (test code = LY#) 2.14 x10 3/uL 1.00-4.80 N MONOCYTE # (test code = MO#) 1.08 x10 3/uL 0.00-0.80 H EOSINOPHIL # (test code = EO#) 0.23 x10 3/uL 0.00-0.45 N BASOPHIL # (test code = BA#) 0.02 x10 3/uL 0.0-0.20 N BASIC METABOLIC [id number] 01:59:00 Test Item Value Reference Range Interpretation Comments SODIUM (test code 135 MMOL/L 136-143 L = NA) POTASSIUM (test 4.9 MMOL/L 3.5-5.1 N code = K) CHLORIDE (test 105 MMOL/L 98-107 N code = CL) CARBON DIOXIDE 19 mmol/L 24-31 L (test code = CO2) GLUCOSE (test code 169 mg/dL 70-104 H = GLU) BLOOD UREA 13.3 MG/DL 7.0-21.0 N NITROGEN (test code = BUN) GLOMERULAR >=60 max >60 The estimated FILTRATION RATE estimate glomerular (test code = GFR) filtration rate is computed usingpatient ra ce, age (>18), sex, and serum creatinin e. If anyof the neede d data elements a re missing the Laboratory [place] ot compute an estimation of t he glomerular filtration rate . CREATININE (test 0.7 mg/dL 0.8-1.5 L code = CREAT) CALCIUM (test code 8.7 mg/dL 8.8-10.2 L = CA) [id number] 01:57:00 Test Item Value Reference Range Interpretation Comments MAGNESIUM (test code = MAG) 1.7 mg/dL 1.4-2.6 N CBC W/AUTO [id number] 01:51:00 Test Item Value Reference Range Interpretation Comments WHITE BLOOD CELL (test code = 19.4 x10 3/uL 4.8-10.8 H WBC) RED BLOOD CELL (test code = 3.78 x10 6/uL 4.20-5.40 L RBC) HEMOGLOBIN (test code = HGB) 11.3 g/dL 14.5-20 L HEMATOCRIT (test code = HCT) 35.2 % 37.0-47.0 L MEAN CELL VOLUME (test code = 93.1 fL 81.0-99.0 N MCV) MEAN CELL HGB (test code = 29.9 pg 27-31 N MCH) MEAN CELL HGB CONCENTRATION 32.1 G/DL 33-36.5 L (test code = MCHC) RED CELL DISTRIBUTION WIDTH 14.3 % 12.9-16.9 N (test code = RDW) PLATELET COUNT (test code = 237 150-440 N PLT) MEAN PLATELET VOLUME (test 10.2 fL 8.9-12.4 N code = MPV) NEUTROPHIL % (test code = NT%) 91.5 % 42.2-75.2 H LYMPHOCYTE % (test code = LY%) 4.6 % 20.5-51.1 L MONOCYTE % (test code = MO%) 3.4 % 1.7-9.3 N EOSINOPHIL % (test code = EO%) 0.0 % 0.0-7.0 N BASOPHIL % (test code = BA%) 0.1 % 0-2.5 N NEUTROPHIL # (test code = NT#) 17.71 x10 3/uL 1.80-7.70 H LYMPHOCYTE # (test code = LY#) 0.90 x10 3/uL 1.00-4.80 L MONOCYTE # (test code = MO#) 0.66 x10 3/uL 0.00-0.80 N EOSINOPHIL # (test code = EO#) 0.00 x10 3/uL 0.00-0.45 N BASOPHIL # (test code = BA#) 0.02 x10 3/uL 0.0-0.20 N COMPREHENSIVE METABOLIC [id number] 14:46:00 Test Item Value Reference Range Interpretation Comments SODIUM (test code = 138 MMOL/L 136-143 N NA) POTASSIUM (test 4.1 MMOL/L 3.5-5.1 N code = K) CHLORIDE (test code 103 MMOL/L 98-107 N = CL) CARBON DIOXIDE 23 mmol/L 24-31 L (test code = CO2) GLUCOSE (test code 88 mg/dL 70-104 N = GLU) BLOOD UREA NITROGEN 13.5 MG/DL 7.0-21.0 N (test code = BUN) GLOMERULAR >=60 max >60 The estimated FILTRATION RATE estimate glomerular (test code = GFR) filtration rate is computed usingpatient ra ce, age (>18), sex, and serum creatinin e. If anyof the ne eded data elements a re missing the Laboratory [facility] ot compute an estimation of t he glomerular filtration rate . CREATININE (test 0.7 mg/dL 0.8-1.5 L code = CREAT) TOTAL PROTEIN (test 7.3 g/dL 6.3-8.3 N code = PROT) ALBUMIN (test code 4.3 G/DL 3.5-5.0 N = ALB) CALCIUM (test code 9.3 mg/dL 8.8-10.2 N = CA) BILIRUBIN TOTAL 0.5 mg/dL 0.2-1.0 N (test code = BILT) SGOT/AST (test code 18 IU/L 10-34 N = AST) SGPT/ALT (test code 22 U/L 10-36 N = ALT) ALKALINE 80 U/L 32-104 N PHOSPHATASE (test code = ALKP) PROTHROMBIN [id number] 14:03:00 Test Item Value Reference Range Interpretation Comments PROTHROMBIN TIME 11.8 SECONDS 10.3-12.9 N PATIENT (test code = PTP) INTERNATIONAL 1.04 INR UNIT 0.9-1.11 N The INR is us eful only NORMAL RATIO (test for monit oring code = INR) anticoagulant therapy.It may be unreliable in t he initial phase o f antigoagulation and in unstable patien ts. Indication for Anticoagulation Recommend ed INR 1. Prevention o f venous thomboembolism 2.0-3.0in high -risk patients; treat ment of venousthrombosi s and pulmonary embol ism aftera course o f heparin; preven tion of systemicembolis m in a variety of cond itions, including atria l fibrillation an d prothetic tissu e heart valves, 2. Pros thetic mechanical hear t valves; 2.5-3.5recurren t systemic emboli sm. THROMBOPLASTIN TIME [id number] 14:03:00 Test Item Value Reference Range Interpretation Comments THROMBOPLASTIN TIME 31.6 SECONDS 26.0-35.9 N INTERPRE TATIVE PARTIAL (test code = DATA: erapeutic PTT) range: Unfractionated heparin:47 - 71 seconds Argatroban:1.5 to 3 times the basel ine PTT - XR CHEST 1 [id number] 14:02:00Patient Name: VIN JOSEPH Unit No: [id number] EXAMS: CPT CODE: [id number] XR CHEST 1 V 98602 Chest Radiograph History: PRE OP Comparison: None at this time Location: R16 A single frontal view of the chest is submitted. The heart is within normal limits in size. Pulmonary vasculature is unremarkable. The visualized lung echevarria appear to be free of disease. The bones appear unremarkable. IMPRESSION: There is no radiographic evidence of acute cardiopulmonary disease. at 1402 Reported and signed by: ALMA Head CC: Eitan Antunez MD Technologist: Otoniel Gay Fluoro Time: DAP (Gy m2): Air Kerma (mGy): Trscr Dt/Tm: 09/19/2019 (1402) by:ElsaPMT Printed Date/Time: 09/19/2019 (140) Name: VIN JOSEPH [facility] Phys: Eitan Barnes MD [address] : 1960 Age: 58 Sex:F [place] [address] Loc: P.SRG Exam Date: 09/19/2019 Status: PRE IN PH: FAX: PAGE 1 Signed Report CBC W/AUTO [id number] 13:52:00 Test Item Value Reference Range Interpretation Comments WHITE BLOOD CELL (test code = 11.7 x10 3/uL 4.8-10.8 H WBC) RED BLOOD CELL (test code = 4.28 x10 6/uL 4.20-5.40 N RBC) HEMOGLOBIN (test code = HGB) 12.6 g/dL 14.5-20 L HEMATOCRIT (test code = HCT) 39.2 % 37.0-47.0 N MEAN CELL VOLUME (test code = 91.6 fL 81.0-99.0 N MCV) MEAN CELL HGB (test code = MCH) 29.4 pg 27-31 N MEAN CELL HGB CONCENTRATION 32.1 G/DL 33-36.5 L (test code = MCHC) RED CELL DISTRIBUTION WIDTH 14.2 % 12.9-16.9 N (test code = RDW) PLATELET COUNT (test code = 270 150-440 N PLT) MEAN PLATELET VOLUME (test code 10.5 fL 8.9-12.4 N = MPV) NEUTROPHIL % (test code = NT%) 72.4 % 42.2-75.2 N LYMPHOCYTE % (test code = LY%) 19.6 % 20.5-51.1 L MONOCYTE % (test code = MO%) 6.0 % 1.7-9.3 N EOSINOPHIL % (test code = EO%) 1.5 % 0.0-7.0 N BASOPHIL % (test code = BA%) 0.3 % 0-2.5 N NEUTROPHIL # (test code = NT#) 8.45 x10 3/uL 1.80-7.70 H LYMPHOCYTE # (test code = LY#) 2.29 x10 3/uL 1.00-4.80 N MONOCYTE # (test code = MO#) 0.70 x10 3/uL 0.00-0.80 N EOSINOPHIL # (test code = EO#) 0.17 x10 3/uL 0.00-0.45 N BASOPHIL # (test code = BA#) 0.04 x10 3/uL 0.0-0.20 N FL Colon Gastrografin Water Soluble [id number] 14:34:09Hm Interface, Radiology Results - 09/18/2019 2:37 PM CDTEXAMINATION: [place] COLON GASTROGRAFIN WATER SOLUBLE ENEMACLINICAL HISTORY: K57.92 Diverticulitis of intestine part unspecified withoutperforation or abscess without bleeding, Abd mass nonpulsatile palpable, colon-colon anastomosis r o leakCOMPARISON: CT abdomen pelvis dated August 23, 2019.TECHNIQUE: Water-soluble contrast was admi nistered via a rectal tube by gravity under fluoroscopic guidance. The colon was opacified in a retrograde fashion to the cecum. Spot radiographs and overhead films were obtained.FLUOROSCOPIC TIME: 1.9 minutes. 12 fluoroscopic images.IMPRESSION:1. There is a rectosigmoid anastomosis. No evidence of leak or significant stricture at the anastomosis.2. Contrast easily flowed through the remainder of the colon. Left colon is slightly small likely related to disuse. No annular stricture identified.3. Tubal ligation clips over the pelvisOP- [id number] and approved by director of radiology/fellow:Tati Berg, Delfino Alas MD, personally reviewed the images and resident's/fellow's findings and agree with the final report.[place] [facility] [id number] 15:31:07 Test Item Value Reference Range Interpretation Comments Sodium (test code = 138 See_Comment [Automa tiffanie message] 2951-2) The system [employer] generated this result transmit tiffanie reference range : 135 - 148 mEq/L. Th e reference range was not used to interpret this result as normal/abnormal . Potassium (test code = 4.0 See_Comment [Aut omated message] 6573-3) The system [employer] generated this result transmit tiffanie reference range : 3.5 - 5.0 mEq/L. Th e reference range was not used to interpret this result as normal/abnormal . Chloride (test code = 105 See_Comment [Auto mated message] 2074-0) The system [employer] generated this result transmit tiffanie reference range : 98 - 112 mEq/L. Th e reference range was not used to interpret this result as normal/abnormal . CO2 (test code = 24 See_Comment [Automated message] 2028-02) The system [employer] generated this result transmit tiffanie reference range : 24 - 31 mEq/L. The reference range was not used to interpret this result as normal/abnormal . Anion gap (test code = 9@ANIO See_Comment [Aut omated message] 93519-9) The system [employer] generated this result transmit tiffanie reference range : 7 - 15 mEq/L. The reference range was not used to interpret this result as normal/abnormal . BUN (test code = 7 mg/dL 6-20 3094-0) Creatinine (test code = 0.62 mg/dL 0.5-0.9 2160-0) Glucose (test code = 95 mg/dL 65-99 2345-7) Calcium (test code = 8.7 mg/dL 8.3-10.2 12440-6) Protein (test code = 6.3 g/dL 6.3-8.3 2885-2) Albumin (test code = 3.2 g/dL 3.5-5 L 1751-7) A/G ratio (test code = 1.0 0.7-3.8 1759-0) Alkaline phosphatase 78 U/L 35-104 (test code = 6768-6) AST (test code = 17 U/L 10-35 0-8) ALT (test code = 15 U/L -50 2-6) Total bilirubin (test 0.3 mg/dL 0-1.2 code = 1975-2) Lab Interpretation Abnormal (test code = 92260-1) [facility] MethodistEstimated [id number] 15:31:07 Test Item Value Reference Range Interpretation Comments Estimated GFR (test >=90 mL/min/1.73 m2 Jese smith Units code = 5488) InterpretationG 1 >=90 Normal or highG2 60-89 Mildly ykwmtkuvpK8u 45-59 Mildly to mode rately rensylgrxN4n 30-44 Moderately to severely decreasedG4 15-29 Severely decre asedG5 <15 Kidn ey failureThe eGFR was calculated dagmar g the Chronic Kidney Disease Epidemiology Co llaboration (CKD-EPI) equat ion. Interpretation is based on recommendations of the National Kidney Foundation-Kidn ey Disease Outcomes Qualit y Initiative (NKF-KDOQI) pub lished in 2014. [facility] MethodistCT Abdomen Pelvis W [id number] 15:13:28Hm Interface, Radiology Results 08/23/2019 3:16 PM CSTEXAMINATION: CT ABDOMEN PELVIS W CONTRASTCLINICAL HISTORY: 58 yearsFemale abscessTECHNIQUE: Multiple axial images of the abdomen and pelvis were obtained following intravenous administration of iodinated contrast. Sagittal and coronal computerized reformatted images were also obtained. CT imaging was performed with iterative reconstruction techniques and/or automated exposure control to reduce radiation dose. COMPARISON: CT abdomen pelvis 03/18/2019IMPRESSION:LUNG BASES:The lung bases are free of acute disease. Left lower lobe subpleural 2 mm calcified granuloma.ABDOMEN:Liver: Enlarged measuring up to 20.7 cm. Subcentimeter circular hypodensity within segment 6 is too small characterize but may represent a simple cystGallbladder/Biliary: The gallbladder is normal. There is no evidence of intra or extrahepatic biliary ductal dilatation.Spleen: The spleen is not enlarged.Pancreas: The pancreas is unremarkable.Adrenal Glands: The adrenal glands are unremarkable.Kidneys: The kidneys are unremarkable. No mass, hydronephrosis or calculi.Vascular: The aorta is nonaneurysmal scattered calcified plaques.Nodes: No enlarged retroperitoneal or mesenteric lymphadenopathy.Bowel: Changes of interval sigmoid resection and anastomosis. Additional postsurgical changes are noted at the cecum with a loop ileostomy noted in the right midabdomen.No bowel obstruction. Gastric wall thickening likely due to underdistention.Peritoneum: Herniation of fat and multiple loops of small bowel within the stomal defect. There is a trace amount of fluid within the hernia sac as well as scattered soft tissue gas within the subcutaneous tissues. Heterogeneous density in the presacral region with scattered gas measuring up to 5.7 x 1.1 x 4.2 cm (TV AP CC, 2:132, 602B: 58). No discrete organized wall/enhancement to suggest abscess formation in this area. Additional free fluid is suspected in the pelvis and right adnexal region without discrete organized wall component to suggest abscess although multiple loops of small bowel limits evaluation. PELVIS:Urinary bladder is distended without focal wall thickening or intraluminal stone. Uterus is normal in size of bilateral tubal ligation clips are present. The ovaries are grossly normal appearance although pelvic inflammatory changes mildly limits evaluation. MUSCULOSKELETAL: No aggressive osseous lesions. Minimal multilevel degenerative disc disease throughout the thoracolumbar spine. SUMMARY:1.Interval changes of colonic resection and loop ileostomy. Heterogeneous density/free fluid and gas in the presacral region and free fluid in the pelvis may represent post surgical changes although phlegmon formation is not excluded. No well organized fluid collection to suggest abscess. Recommend close clinical follow-up and repeat imaging as needed.2.Multiple loops of small bowel herniated along the ileostomy stoma without evidence for obstruction. Small amount of free fluid within the herniation sac may be related to recent surgery as well as adjacent subcutaneous gas3.These findings were communicated to Dr. Howard at 3:08 PM 08/23/2019 via telephone who verbalized understanding.4.Other findings as described above.[facility]-[id number] MethodistLipase [id number] 15:08:52 Test Item Value Reference Range Interpretation Comments Lipase (test code = 3040-3) 9 U/L 13-60 L Lab Interpretation (test code = Abnormal 82519-6) [facility] MethodistCBC with platelet and [id number] 15:04:08 Test Item Value Reference Range Interpretation Comments WBC (test code = 12.03 See_Comment H [Automated message] 02050-7) The system [employer] generated this result transmit tiffanie reference range : 4.50 - 11.00 k/ uL. The reference r mari was not used to interpret this result as normal/abnormal . RBC (test code = 3.64 m/uL 4.2-5.5 L 95148-7) HGB (test code = 718-7) 10.9 g/dL 12-16 L HCT (test code = 4544-3) 34.0 % 37-47 L MCV (test code = 787-2) 93.4 fL 82-100 MCH (test code = 785-6) 29.9 pg 27-34 MCHC (test code = 786-4) 32.1 g/dL 31-37 RDW - SD (test code = 46.6 fL 37-55 75290-2) MPV (test code = 10.7 fL 8.8-13.2 64350-0) Platelet count (test 313 See_Comment [Autom ated message] code = 20261-6) The system w [employer] generated this result transmit tiffanie reference range : 150 - 400 k/uL. The reference range was not used to interpret this result as normal/abnormal . Neutrophils (test code = 75.0 % 39-69 H 88135-0) Lymphocytes (test code = 13.7 % 25-45 L 21974-4) Monocytes (test code = 9.0 % 0-10 38926-8) Eosinophils (test code = 2.2 % 0-5 10220-8) Basophils (test code = 0.1 % 0-1 84678-7) Lab Interpretation (test Abnormal code = 72449-9) [facility] MethodistCHEMISTRY 7 [id number] 05:51:00 Test Item Value Reference Range Interpretation Comments SODIUM (test code = NA) 139 mEq/L 135-145 N POTASSIUM (test code = K) 4.3 mEq/L 3.5-5.0 N CHLORIDE (test code = CL) 107 mEq/L 100-115 N CARBON DIOXIDE (test code = CO2) 22 mEq/L 22-31 N ANION GAP (test code = GAP) 14.00 10-20 N GLUCOSE (test code = GLU) 109 mg/dL 65-110 N BLOOD UREA NITROGEN (test code = 9 mg/dL 7-18 N BUN) GLOMERULAR FILTRATION RATE (test 86 ml/min >60 N code = GFR) CREATININE (test code = CREAT) 0.7 mg/dL 0.5-1.0 N CALCIUM (test code = CA) 7.8 mg/dL 8.4-10.2 L [id number] 05:51:00 Test Item Value Reference Range Interpretation Comments MAGNESIUM (test code = MAG) 1.7 mg/dL 1.8-2.4 L CBC W/AUTO [id number] 05:27:00 Test Item Value Reference Range Interpretation Comments WHITE BLOOD CELL (test code = WBC) 12.4 K/mm3 6.6-12.1 H RED BLOOD CELL (test code = RBC) 3.05 M/mm3 3.45-5.01 L HEMOGLOBIN (test code = HGB) 9.2 g/dL 10.7-13.9 L HEMATOCRIT (test code = HCT) 30.1 % 32.1-42.1 L MEAN CELL VOLUME (test code = MCV) 99 fL 84.1-94.8 H MEAN CELL HGB (test code = MCH) 30.2 pg 27-35 N MEAN CELL HGB CONCETRATION (test 30.6 gm/dL 32.2-34.1 L code = MCHC) RED CELL DISTRIBUTION WIDTH (test 14.0 % 12.4-16.5 N code = RDW) PLATELET COUNT (test code = PLT) 197 K/mm3 133-385 N MEAN PLATELET VOLUME (test code = 10.9 fl 9.1-12.7 N MPV) NEUTROPHIL % (test code = NT%) 77.7 % 56.5-79.4 N LYMPHOCYTE % (test code = LY%) 12.4 % 14.3-34.3 L MONOCYTE % (test code = MO%) 7.7 % 5.1-10.4 N EOSINOPHIL % (test code = EO%) 1.6 % 0.1-3.0 N BASOPHIL % (test code = BA%) 0.2 % 0.1-1.0 N NEUTROPHIL # (test code = NT#) 9.6 K/mm3 LYMPHOCYTE # (test code = LY#) 1.5 K/mm3 MONOCYTE # (test code = MO#) 1.0 K/mm3 EOSINOPHIL # (test code = EO#) 0.20 K/mm3 BASOPHIL # (test code = BA#) 0.0 K/mm3 RBC MORPHOLOGY REQUIRED (test code NORMAL NORMAL = RBCM) PLATELET MORPHOLOGY REQUIRED (test NORMAL NORMAL code = PLTMR) COLON SEGMENT RESEC.NOT [id number] 15:04:00 RUN DATE: 08/20/19 [facility] PAGE 1 RUN TIME: 1629 Specimen Inquiry RUN USER: INTERFACE PATIENT: VIN JOSEPH LOC: [place] U #: [id number] AGE/SX: 58/F ROOM: [facility] RE08/18/19REG DR: Eitan Antunez MD : 60 BED: A DIS: STATUS: ADM IN TLOC: SPEC #: [id number] RECD: 08/18/19 STATUS: [place] REQ #: [id number] ROXANNA: 08/18/19- SUBM DR: Eitan Antunez MD ENTERED: 08/19/19 SP TYPE: COLONR JEN DR: Ernie Cruz MD ORDERED: LEVEL V SURGICA/3 CODES: [id number] - COLON, NOS COPIES TO: Eitan Antunez MD [id number] [place] [address] Ernie Cruz MD [address] [place], [place] [address] PROCEDURES: LEVEL V SURGICA (Incomplete) TISSUES: COLON, NOS - CECUM, RECTOSIGMOID DIVERTICULITIS AND DONUTS CLINICAL HISTORY 58 year old, diverticulitis (wpd) FINAL DIAGNOSIS Cecum, colostomy reversal: - portion of colon with focal superficial mucosa ulceration and serosal adhesions Rectosigmoid diverticulitis, resection: - diverticular disease - serosal adhesions - lymph node, no significant pathologic alteration Donuts, excision: - colonic mucosa, no significant pathologic alteration CPT code(s): 99554 x2 [facility] 08/20/19 CONTINUED ON NEXT PAGE RUN DATE: 08/20/19 [facility] PAGE 2 RUN TIME: 1629 Specimen Inquiry RUN USER: INTERFACE SPEC #: [id number] PATIENT: VIN JOSEPH #[id number] (Continued) GROSS DESCRIPTION ANATOMIC SOURCE OF TISSUE (per Requisition): 1. Cecum/colostomy 2. Rectosigmoid diverticulitis 3. Donuts Each specimen is labeled with the patient's name and medical record number. Specimen #1 is designated "cecum" and consists of a 9.0 x 2.5 x 2.0 cm wedge shaped portion of colon with a single stapled line and attached pericolonicadipose tissue. The serosa is pink-purple and hyperemic with a few adhesions. The lumen contains a scant amount of feliz-brown, soft fecal material. The mucosa is feliz-red, hemorrhagic and slightly ulcerative with complete loss of mucosal folding. The muscularis propria is feliz, firm and thickened. The stapled line margin is inked black. Log Stacker Operator sections submitted as A1 - A5.Specimen #2 is designated "rectosigmoid diverticulitis" and consists of a 13 cm in length and 5.0 cm in circumference, slightly tortuous segment of large bowel with attached pericolonic adipose tissue. The serosa is pink-purple and hyperemic with a few adhesions. The lumen is strictured. The mucosa is feliz, focally hemorrhagic and slightly edematous with multiple diverticula, 0.3 - 1.0 cm.The muscularis propria is feliz, firm and thickened. There are no perforation sites or abscesses. Also received in the same container is a 4.0 cm in length and 2.5 cm in circumference additional segment of bowel. The cut surfaces are unremarkable. Log Stacker Operator sections of diverticular disease are submitted as B1 - B5. Specimen #3 is designated "donuts" and consists of two feliz-pink, focally hemorrhagic, ring shaped segments of bowel, 1.5 and 2.0 cm. The mucosa is unremarkable. Log Stacker Operator sections are submitted as C1. samuel/yanely 08/19/19 Signed Nayely Eli MD 08/20/19 1504 END OF REPORT CBC W/AUTO [id number] 13:21:00 Test Item Value Reference Range Interpretation Comments WHITE BLOOD CELL (test code = WBC) 12.8 K/mm3 6.6-12.1 H RED BLOOD CELL (test code = RBC) 3.30 M/mm3 3.45-5.01 L HEMOGLOBIN (test code = HGB) 10.1 g/dL 10.7-13.9 L HEMATOCRIT (test code = HCT) 33.0 % 32.1-42.1 N MEAN CELL VOLUME (test code = MCV) 100 fL 84.1-94.8 H MEAN CELL HGB (test code = MCH) 30.6 pg 27-35 N MEAN CELL HGB CONCETRATION (test 30.6 gm/dL 32.2-34.1 L code = MCHC) RED CELL DISTRIBUTION WIDTH (test 14.0 % 12.4-16.5 N code = RDW) PLATELET COUNT (test code = PLT) 219 K/mm3 133-385 N MEAN PLATELET VOLUME (test code = 11.0 fl 9.1-12.7 N MPV) NEUTROPHIL % (test code = NT%) 75.6 % 56.5-79.4 N LYMPHOCYTE % (test code = LY%) 15.1 % 14.3-34.3 N MONOCYTE % (test code = MO%) 7.8 % 5.1-10.4 N EOSINOPHIL % (test code = EO%) 0.9 % 0.1-3.0 N BASOPHIL % (test code = BA%) 0.2 % 0.1-1.0 N NEUTROPHIL # (test code = NT#) 9.6 K/mm3 LYMPHOCYTE # (test code = LY#) 1.9 K/mm3 MONOCYTE # (test code = MO#) 1.0 K/mm3 EOSINOPHIL # (test code = EO#) 0.11 K/mm3 BASOPHIL # (test code = BA#) 0.0 K/mm3 RBC MORPHOLOGY REQUIRED (test code NORMAL NORMAL = RBCM) PLATELET MORPHOLOGY REQUIRED (test NORMAL NORMAL code = PLTMR) CHEMISTRY 7 [id number] 13:15:00 Test Item Value Reference Range Interpretation Comments SODIUM (test code = NA) 139 mEq/L 135-145 N POTASSIUM (test code = K) 4.2 mEq/L 3.5-5.0 N CHLORIDE (test code = CL) 104 mEq/L 100-115 N CARBON DIOXIDE (test code = CO2) 27 mEq/L 22-31 N ANION GAP (test code = GAP) 11.80 10-20 N GLUCOSE (test code = GLU) 103 mg/dL 65-110 N BLOOD UREA NITROGEN (test code = 8 mg/dL 7-18 N BUN) GLOMERULAR FILTRATION RATE (test 86 ml/min >60 N code = GFR) CREATININE (test code = CREAT) 0.7 mg/dL 0.5-1.0 N CALCIUM (test code = CA) 8.0 mg/dL 8.4-10.2 L CBC W/AUTO [id number] 06:44:00 Test Item Value Reference Range Interpretation Comments WHITE BLOOD CELL (test code = WBC) 11.6 K/mm3 6.6-12.1 N RED BLOOD CELL (test code = RBC) 3.35 M/mm3 3.45-5.01 L HEMOGLOBIN (test code = HGB) 10.2 g/dL 10.7-13.9 L HEMATOCRIT (test code = HCT) 33.5 % 32.1-42.1 N MEAN CELL VOLUME (test code = MCV) 100 fL 84.1-94.8 H MEAN CELL HGB (test code = MCH) 30.4 pg 27-35 N MEAN CELL HGB CONCETRATION (test 30.4 gm/dL 32.2-34.1 L code = MCHC) RED CELL DISTRIBUTION WIDTH (test 14.2 % 12.4-16.5 N code = RDW) PLATELET COUNT (test code = PLT) 211 K/mm3 133-385 N MEAN PLATELET VOLUME (test code = 10.9 fl 9.1-12.7 N MPV) NEUTROPHIL % (test code = NT%) 73.9 % 56.5-79.4 N LYMPHOCYTE % (test code = LY%) 15.9 % 14.3-34.3 N MONOCYTE % (test code = MO%) 9.2 % 5.1-10.4 N EOSINOPHIL % (test code = EO%) 0.6 % 0.1-3.0 N BASOPHIL % (test code = BA%) 0.1 % 0.1-1.0 N NEUTROPHIL # (test code = NT#) 8.6 K/mm3 LYMPHOCYTE # (test code = LY#) 1.9 K/mm3 MONOCYTE # (test code = MO#) 1.1 K/mm3 EOSINOPHIL # (test code = EO#) 0.07 K/mm3 BASOPHIL # (test code = BA#) 0.0 K/mm3 RBC MORPHOLOGY REQUIRED (test code NORMAL NORMAL = RBCM) PLATELET MORPHOLOGY REQUIRED (test NORMAL NORMAL code = PLTMR) QNSCHEMISTRY 7 [id number] 06:05:00 Test Item Value Reference Range Interpretation Comments SODIUM (test code = NA) 137 mEq/L 135-145 N POTASSIUM (test code = K) 5.3 mEq/L 3.5-5.0 H CHLORIDE (test code = CL) 107 mEq/L 100-115 N CARBON DIOXIDE (test code = CO2) 19 mEq/L 22-31 L ANION GAP (test code = GAP) 16.00 10-20 N GLUCOSE (test code = GLU) 92 mg/dL 65-110 N BLOOD UREA NITROGEN (test code = 10 mg/dL 7-18 N BUN) GLOMERULAR FILTRATION RATE (test 127 ml/min >60 N code = GFR) CREATININE (test code = CREAT) 0.5 mg/dL 0.5-1.0 N CALCIUM (test code = CA) 7.9 mg/dL 8.4-10.2 L [id number] 06:05:00 Test Item Value Reference Range Interpretation Comments MAGNESIUM (test code = MAG) 1.9 mg/dL 1.8-2.4 N CHEMISTRY 7 [id number] 05:22:00 Test Item Value Reference Range Interpretation Comments SODIUM (test code = NA) 138 mEq/L 135-145 N POTASSIUM (test code = K) 4.7 mEq/L 3.5-5.0 N CHLORIDE (test code = CL) 103 mEq/L 100-115 N CARBON DIOXIDE (test code = CO2) 26 mEq/L 22-31 N ANION GAP (test code = GAP) 13.30 10-20 N GLUCOSE (test code = GLU) 133 mg/dL 65-110 H BLOOD UREA NITROGEN (test code = 12 mg/dL 7-18 N BUN) GLOMERULAR FILTRATION RATE (test 74 ml/min >60 N code = GFR) CREATININE (test code = CREAT) 0.8 mg/dL 0.5-1.0 N CALCIUM (test code = CA) 8.5 mg/dL 8.4-10.2 N [id number] 05:22:00 Test Item Value Reference Range Interpretation Comments MAGNESIUM (test code = MAG) 1.8 mg/dL 1.8-2.4 N CBC W/AUTO [id number] 05:18:00 Test Item Value Reference Range Interpretation Comments WHITE BLOOD CELL (test code = WBC) 17.9 K/mm3 6.6-12.1 H RED BLOOD CELL (test code = RBC) 3.93 M/mm3 3.45-5.01 N HEMOGLOBIN (test code = HGB) 12.0 g/dL 10.7-13.9 N HEMATOCRIT (test code = HCT) 37.5 % 32.1-42.1 N MEAN CELL VOLUME (test code = MCV) 95 fL 84.1-94.8 H MEAN CELL HGB (test code = MCH) 30.5 pg 27-35 N MEAN CELL HGB CONCETRATION (test 32.0 gm/dL 32.2-34.1 L code = MCHC) RED CELL DISTRIBUTION WIDTH (test 13.9 % 12.4-16.5 N code = RDW) PLATELET COUNT (test code = PLT) 270 K/mm3 133-385 N MEAN PLATELET VOLUME (test code = 10.6 fl 9.1-12.7 N MPV) NEUTROPHIL % (test code = NT%) 88.4 % 56.5-79.4 H LYMPHOCYTE % (test code = LY%) 5.9 % 14.3-34.3 L MONOCYTE % (test code = MO%) 5.0 % 5.1-10.4 L EOSINOPHIL % (test code = EO%) 0.0 % 0.1-3.0 L BASOPHIL % (test code = BA%) 0.1 % 0.1-1.0 N NEUTROPHIL # (test code = NT#) 15.8 K/mm3 LYMPHOCYTE # (test code = LY#) 1.1 K/mm3 MONOCYTE # (test code = MO#) 0.9 K/mm3 EOSINOPHIL # (test code = EO#) 0 K/mm3 BASOPHIL # (test code = BA#) 0.0 K/mm3 RBC MORPHOLOGY REQUIRED (test code NORMAL NORMAL = RBCM) PLATELET MORPHOLOGY REQUIRED (test NORMAL NORMAL code = PLTMR) COMPREHENSIVE METABOLIC [id number] 17:09:00 Test Item Value Reference Range Interpretation Comments SODIUM (test code = NA) 140 mEq/L 135-145 N POTASSIUM (test code = K) 4.4 mEq/L 3.5-5.0 N CHLORIDE (test code = CL) 103 mEq/L 100-115 N CARBON DIOXIDE (test code = CO2) 26 mEq/L 22-31 N ANION GAP (test code = GAP) 15.60 10-20 N GLUCOSE (test code = GLU) 82 mg/dL 65-110 N BLOOD UREA NITROGEN (test code = 13 mg/dL 7-18 N BUN) GLOMERULAR FILTRATION RATE (test 86 ml/min >60 N code = GFR) CREATININE (test code = CREAT) 0.7 mg/dL 0.5-1.0 N TOTAL PROTEIN (test code = PROT) 6.8 gm/dL 6.3-8.2 N ALBUMIN (test code = ALB) 3.7 gm/dL 3.4-4.8 N CALCIUM (test code = CA) 8.1 mg/dL 8.4-10.2 L BILIRUBIN TOTAL (test code = BILT) 0.2 mg/dL 0.2-1.0 N SGOT/AST (test code = AST) 18 units/L 15-37 N SGPT/ALT (test code = ALT) 26 units/L 12-78 N ALKALINE PHOSPHATASE TOTAL (test 62 units/L 46-116 N code = ALKP) PROTHROMBIN [id number] 16:53:00 Test Item Value Reference Range Interpretation Comments PROTHROMBIN TIME PATIENT (test code 10.4 secs 10.4-12.4 N = PTP) IS PATIENT ON ANTICOAGULANTS ? NINTERNATIONAL NORMAL [id number] 16:53:00 Test Item Value Reference Range Interpretation Comments INTERNATIONAL NORMAL 0.96 The INR is to be used RATIO (test code = INR) only for monitoring oral anticoagulantth erapy. INDICATION INR VALUE 1. Prophylaxis inc luding high risk boggs rgery 2.0 - 2.52. Deep venous thr ombosis. Pulmonary em bolism. Atrial fibrilla tion or bioprostheti c heart valves 2.0 - 3.03. Mechanical hear t valves or recurren t systemic emboli sm. 3.0 - 3.5 IS PATIENT ON ANTICOAGULANTS ? NTHROMBOPLASTIN TIME [id number] 16:53:00 Test Item Value Reference Range Interpretation Comments THROMBOPLASTIN TIME PARTIAL (test 34.9 secs 22-38 N code = PTT) IS PATIENT ON ANTICOAGULANTS ? NCBC W/AUTO [id number] 16:35:00 Test Item Value Reference Range Interpretation Comments WHITE BLOOD CELL (test code = WBC) 10.9 K/mm3 6.6-12.1 N RED BLOOD CELL (test code = RBC) 4.28 M/mm3 3.45-5.01 N HEMOGLOBIN (test code = HGB) 12.9 g/dL 10.7-13.9 N HEMATOCRIT (test code = HCT) 40.6 % 32.1-42.1 N MEAN CELL VOLUME (test code = MCV) 95 fL 84.1-94.8 H MEAN CELL HGB (test code = MCH) 30.1 pg 27-35 N MEAN CELL HGB CONCETRATION (test 31.8 gm/dL 32.2-34.1 L code = MCHC) RED CELL DISTRIBUTION WIDTH (test 14.1 % 12.4-16.5 N code = RDW) PLATELET COUNT (test code = PLT) 282 K/mm3 133-385 N MEAN PLATELET VOLUME (test code = 10.9 fl 9.1-12.7 N MPV) NEUTROPHIL % (test code = NT%) 65.5 % 56.5-79.4 N LYMPHOCYTE % (test code = LY%) 24.6 % 14.3-34.3 N MONOCYTE % (test code = MO%) 7.3 % 5.1-10.4 N EOSINOPHIL % (test code = EO%) 1.9 % 0.1-3.0 N BASOPHIL % (test code = BA%) 0.4 % 0.1-1.0 N NEUTROPHIL # (test code = NT#) 7.1 K/mm3 LYMPHOCYTE # (test code = LY#) 2.7 K/mm3 MONOCYTE # (test code = MO#) 0.8 K/mm3 EOSINOPHIL # (test code = EO#) 0.21 K/mm3 BASOPHIL # (test code = BA#) 0.0 K/mm3 RBC MORPHOLOGY REQUIRED (test code NORMAL NORMAL = RBCM) PLATELET MORPHOLOGY REQUIRED (test NORMAL NORMAL code = PLTMR)
--- NOTE | 2020-08-19 06:41 | EDPHYS ---
Physician Documentation [facility] Name: Elsy Reed Age: 59 yrs Sex: Female : 1960 Arrival Date: 08/19/2020 Time: 06:14 Bed 5 Private MD: ED Physician Law Morocho HPI: 08/19 06:32 This 59 yrs old Female presents to ER via Unassigned with complaints of Chest yanira Pain. 06:32 The patient or guardian reports chest pain that is located primarily in the substernal yanira area. Onset: 1 day(s) ago. The pain radiates to neck, jaw. Associated signs and symptoms: Pertinent positives: diaphoresis, shortness of breath. The chest pain is described as a heaviness, causing indigestion. Severity of pain: At its worst the pain was mild moderate in the emergency department the pain is unchanged. The patient has experienced similar episodes in the past, several times. Historical: - Allergies: 06:35 No Known Allergies; bb - Home Meds: 06:35 irbesartan Oral [Active]; Nexium Oral [Active]; bb - PMHx: 06:35 Diverticulitis; Gastric Reflux; Hypertension; bb - PSHx: 06:35 Tubal ligation; Colostomy; bb - Immunization history:: Adult Immunizations up to date. - Social history:: Smoking status: Patient reports the use of cigarette tobacco products, smokes one pack cigarettes per day. Patient uses alcohol, occasionally. Patient/guardian denies using street drugs. - Family history:: not pertinent. ROS: 06:32 Constitutional: Negative for fever, chills, and weight loss, Eyes: Negative for injury, yanira pain, redness, and discharge, ENT: Negative for injury, pain, and discharge, Neck: Negative for injury, pain, and swelling, Respiratory: Negative for shortness of breath, cough, wheezing, and pleuritic chest pain, Abdomen/GI: Negative for abdominal pain, nausea, vomiting, diarrhea, and constipation, Back: Negative for injury and pain, : Negative for injury, bleeding, discharge, and swelling, MS/Extremity: Negative for injury and deformity, Skin: Negative for injury, rash, and discoloration, Neuro: Negative for headache, weakness, numbness, tingling, and seizure, Psych: Negative for depression, anxiety, suicide ideation, homicidal ideation, and hallucinations, Allergy/Immunology: Negative for hives, rash, and allergies, Endocrine: Negative for neck swelling, polydipsia, polyuria, polyphagia, and marked weight changes, Hematologic/Lymphatic: Negative for swollen nodes, abnormal bleeding, and unusual bruising. 06:32 Cardiovascular: Positive for chest pain, of the chest. Exam: 06:32 Constitutional: This is a well developed, well nourished patient who is awake, alert, yanira and in no acute distress. Head/Face: Normocephalic, atraumatic. Eyes: Pupils equal round and reactive to light, extra-ocular motions intact. Lids and lashes normal. Conjunctiva and sclera are non-icteric and not injected. Cornea within normal limits. Periorbital areas with no swelling, redness, or edema. ENT: Nares patent. No nasal discharge, no septal abnormalities noted. Tympanic membranes are normal and external auditory canals are clear. Oropharynx with no redness, swelling, or masses, exudates, or evidence of obstruction, uvula midline. Mucous membranes moist. Neck: Trachea midline, no thyromegaly or masses palpated, and no cervical lymphadenopathy. Supple, full range of motion without nuchal rigidity, or vertebral point tenderness. No Meningismus. Chest/axilla: Normal chest wall appearance and motion. Nontender with no deformity. No lesions are appreciated. Cardiovascular: Regular rate and rhythm with a normal S1 and S2. No gallops, murmurs, or rubs. Normal PMI, no JVD. No pulse deficits. Respiratory: Lungs have equal breath sounds bilaterally, clear to auscultation and percussion. No rales, rhonchi or wheezes noted. No increased work of breathing, no retractions or nasal flaring. Abdomen/GI: Soft, non-tender, with normal bowel sounds. No distension or tympany. No guarding or rebound. No evidence of tenderness throughout. Back: No spinal tenderness. No costovertebral tenderness. Full range of motion. Female : Normal external genitalia. Skin: Warm, dry with normal turgor. Normal color with no rashes, no lesions, and no evidence of cellulitis. MS/ Extremity: Pulses equal, no cyanosis. Neurovascular intact. Full, normal range of motion. Neuro: Awake and alert, GCS 15, oriented to person, place, time, and situation. Cranial nerves II-XII grossly intact. Motor strength 5/5 in all extremities. Sensory grossly intact. Cerebellar exam normal. Normal gait. Psych: Awake, alert, with orientation to person, place and time. Behavior, mood, and affect are within normal limits. 06:32 Musculoskeletal/extremity: DVT Exam: No signs of deep vein thrombosis. no pain, no swelling, no tenderness, negative Homans' sign noted on exam, no appreciated bluish discoloration, no erythema, no increased warmth. 06:40 ECG was reviewed by the Attending Physician. [facility] Vital Signs: 06:31 BP 143 / 89; Pulse 68; Resp 16 S; Temp 98.2(O); Pulse Ox 100% on R/A; Weight 73.48 kg bb (R); Height 4 ft. 11 in. (149.86 cm) (R); Pain 3/10; 08:36 BP 102 / 56; Pulse 53; Resp 16; Pulse Ox 100% on R/A; Pain 4/10; ss 06:31 Body Mass Index 32.72 (73.48 kg, 149.86 cm) bb MDM: 06:22 Patient medically screened. [facility] 06:36 Differential diagnosis: abnormal EKG, acute pericarditis, anxiety, cholecystitis, yanira Cholelithiasis hiatal hernia, pancreatitis, pulmonary embolus, stable angina, unstable angina. HEART Score: History: Moderately Suspicious (1), ECG: Non specific repolarization disturbance / LBTB / PM (1), Age: > 45 and < 65 years (1), Risk Factors: 1 or 2 risk factors (1), [Hypertension] [+ Family HX] Troponin: < or = 1 x Normal Limit (0). The patient was given aspirin in the Emergency Department. The patient's deep vein thrombosis risk score was calculated as follows: Total Score: 0. This patient was found to be at low risk for a deep vein thrombosis by using the Well's assessment criteria. The patient's pulmonary embolism risk score was calculated as follows: Total Score: 0-2 points. This patient was found to be at low risk for a pulmonary embolism by using the Well's assessment criteria. ABILIO Risk Score: 1 - Recent [<24hrs] Severe Angina, TOTAL SCORE = 1. Data reviewed: vital signs, nurses notes, lab test result(s), EKG, radiologic studies, plain films. Data interpreted: court monitor: rate is 68 beats/min, rhythm is regular, Pulse oximetry: on room air is 100 %. Test interpretation: by ED physician or midlevel provider: ECG, plain radiologic studies. 08/19 06:23 Order name: Basic Metabolic Panel [facility] 08/19 06:23 Order name: CBC with Diff [facility] 08/19 06:23 Order name: LFT's [facility] 08/19 06:23 Order name: Magnesium; Complete Time: 07:31 [facility] 08/19 06:23 Order name: NT PRO-BNP; Complete Time: 07:31 [facility] 08/19 06:23 Order name: PT-INR; Complete Time: 07:31 [facility] 08/19 06:23 Order name: Troponin (emerg Dept Use Only); Complete Time: 07:31 [facility] 08/19 06:23 Order name: Lipase; Complete Time: 07:31 [facility] 08/19 06:24 Order name: Basic Metabolic Panel; Complete Time: 07:31 [facility] 08/19 06:24 Order name: Liver (Hepatic) Function; Complete Time: 07:31 [facility] 08/19 07:00 Order name: CBC Smear Scan [facility] 08/19 07:31 Order name: COVID-19 : Document "Date of Symptom Onset" if Symptomatic. ss 08/19 08:55 Order name: PTT, Activated Partial Thromb [facility] 08/19 09:01 Order name: SARS-COV-2 RT PCR [facility] 08/19 06:23 Order name: XRAY Chest (1 view) [facility] 08/19 06:23 Order name: EKG; Complete Time: 06:24 [facility] 08/19 06:23 Order name: Cardiac monitoring; Complete Time: 06:36 [facility] 08/19 06:23 Order name: EKG - Nurse/Tech; Complete Time: 06:36 [facility] 08/19 06:23 Order name: IV Saline Lock; Complete Time: 07:07 [facility] 08/19 06:23 Order name: Labs collected and sent; Complete Time: 06:36 [facility] 08/19 07:39 Order name: CONS Physician Consult [facility] 08/19 06:23 Order name: O2 Per Protocol; Complete Time: 06:36 [facility] 08/19 06:23 Order name: O2 Sat Monitoring; Complete Time: 06:36 [facility] 08/19 06:23 Order name: Urine Dipstick-Ancillary (obtain specimen); Complete Time: 06:35 yanira EC:40 Rate is 70 beats/min. Rhythm is regular. QRS [place] is Normal. OK interval is normal. QRS yanira interval is normal. QT interval is normal. No Q waves. T waves are Normal. No ST changes noted. Clinical impression: NSR w/ Non-specific ST/T Changes and No evidence of ischemia. Interpreted by me. Reviewed by me. Administered Medications: 06:36 Drug: Aspirin Chewable Tablet 324 mg Route: PO; em 07:04 Follow up: Response: No adverse reaction em 06:49 Drug: NS 0.9% 1000 ml Route: IV; Rate: 125 ml/hr; Site: right antecubital; em 07:58 Follow up: IV Status: Infusion continued upon admission ss 07:05 Not Given (Physician Discretion): Lovenox 1 mg/kg Sub-Q once em 07:05 Drug: Pepcid 20 mg Route: IVP; Site: right antecubital; em 07:57 Follow up: Response: No adverse reaction ss 07:06 Drug: Lovenox 80 mg Route: Sub-Q; Site: right lower abdomen; em 07:56 Follow up: Response: No adverse reaction ss 07:06 Drug: Zofran (Ondansetron) 4 mg Route: IVP; Site: right antecubital; em 07:55 Follow up: Response: No adverse reaction ss 07:22 Drug: Lopressor (metoprolol TARTRATE) 50 mg Route: PO; ss 07:57 Follow up: Response: No adverse reaction ss 07:37 Drug: PlaVIX 300 mg Route: PO; ss 08:51 Follow up: Response: No adverse reaction ss 07:43 Drug: morphine 2 mg Route: IVP; Site: right antecubital; ss 07:56 Follow up: Response: No adverse reaction; Pain is decreased ss Disposition: 08/19/20 06:40 Hospitalization ordered by Jose Miguel Templeton for Observation. Preliminary diagnosis are Other chest pain, Essential (primary) hypertension, Angina pectoris, unspecified. - Bed requested for Telemetry/MedSurg (observation). - Status is Observation. ss - Condition is Stable. - Problem is new. - Symptoms have improved. Signatures: Dispatcher [employer] Mir MD MD cha Munoz, Edgar, RN Nicole Lees RN RN bb Martinez, Eric em1 Rosa Rodriguez RN RN ss Corrections: (The following items were deleted from the chart) 06:40 06:40 Hospitalization Ordered by Jose Miguel Templeton MD for Inpatient Admission. Preliminary yanira diagnosis is Other chest pain; Essential (primary) hypertension; Angina pectoris, unspecified. Bed requested for Telemetry/MedSurg (observation). Status is Inpatient Admission. Condition is Stable. Problem is new. Symptoms have improved. [facility] 09:17 06:40 08/19/2020 06:40 Hospitalization Ordered by Jose Miguel Templeton MD for Observation. em1 Preliminary diagnosis is Other chest pain; Essential (primary) hypertension; Angina pectoris, unspecified. Bed requested for Telemetry/MedSurg (observation). Status is Observation. Condition is Stable. Problem is new. Symptoms have improved. yanira 10:01 09:17 08/19/2020 06:40 Hospitalization Ordered by Jose Miguel Templeton MD for Observation. ss Preliminary diagnosis is Other chest pain; Essential (primary) hypertension; Angina pectoris, unspecified. Bed requested for Telemetry/MedSurg (observation). Status is Observation. Condition is Stable. Problem is new. Symptoms have improved. em1
--- NOTE | 2020-08-19 06:41 | ER ---
Nurse's Notes [facility] Name: Elsy Reed Age: 59 yrs Sex: Female : 1960 Arrival Date: 08/19/2020 Time: 06:14 Bed 5 Private MD: Diagnosis: Other chest pain;Essential (primary) hypertension;Angina pectoris, unspecified Presentation: 08/19 06:31 Chief complaint: Patient states: she has had 3 or 4 episodes of chest pain in the last bb week which she ignored because they went away but this morning it was much worse starting about 0430 today she became diaphoretic and nauseous and the pain radiating up into her neck and jaw. Coronavirus screen: At this time, the client does not indicate any symptoms associated with coronavirus-19. Ebola Screen: No symptoms or risks identified at this time. Initial Sepsis Screen: Does the patient meet any 2 criteria? No. Patient's initial sepsis screen is negative. Does the patient have a suspected source of infection? No. Patient's initial sepsis screen is negative. Risk Assessment: Do you want to hurt yourself or someone else? Patient reports no desire to harm self or others. Onset of symptoms was August 19, 2020. 06:31 Method Of Arrival: Ambulatory bb 06:31 Acuity: OMAIRA 2 bb Triage Assessment: 06:35 General: Appears uncomfortable, Behavior is cooperative, anxious. Pain: Complains of bb pain in chest Pain currently is 3 out of 10 on a pain scale. Neuro: Level of Consciousness is awake, alert, obeys commands, Oriented to person, place, time, situation. Cardiovascular: Capillary refill < 3 seconds Patient's skin is warm and dry. Rhythm is sinus rhythm. Respiratory: Airway is patent Respiratory effort is even, unlabored, Respiratory pattern is regular. GI: No signs and/or symptoms were reported involving the gastrointestinal system. Derm: Skin is pink, warm \T\ dry. Musculoskeletal: Circulation, motion, and sensation intact. Historical: - Allergies: 06:35 No Known Allergies; bb - Home Meds: 06:35 irbesartan Oral [Active]; Nexium Oral [Active]; bb - PMHx: 06:35 Diverticulitis; Gastric Reflux; Hypertension; bb - PSHx: 06:35 Tubal ligation; Colostomy; bb - Immunization history:: Adult Immunizations up to date. - Social history:: Smoking status: Patient reports the use of cigarette tobacco products, smokes one pack cigarettes per day. Patient uses alcohol, occasionally. Patient/guardian denies using street drugs. - Family history:: not pertinent. Screenin:50 Abuse screen: Denies threats or abuse. Nutritional screening: No deficits noted. em Tuberculosis screening: No symptoms or risk factors identified. Fall Risk None identified. Assessment: 06:45 General: Appears in no apparent distress. uncomfortable, Behavior is calm, cooperative, em appropriate for age. Pain: Complains of pain in chest Pain radiates to neck Pain began 1 week ago. Neuro: Level of Consciousness is awake, alert, obeys commands, Oriented to person, place, time, situation. Cardiovascular: Capillary refill < 3 seconds Patient's skin is warm and dry. Rhythm is sinus rhythm. Respiratory: Airway is patent Respiratory effort is even, unlabored, Respiratory pattern is regular, symmetrical. GI: Reports nausea. Derm: Skin is intact, is healthy with good turgor, Skin is pink, warm \T\ dry. Musculoskeletal: Capillary refill < 3 seconds, Range of motion: intact in all extremities. 07:05 General: Appears uncomfortable, Behavior is calm, cooperative. Pain: Complains of pain ss in chest Pain currently is 4 out of 10 on a pain scale. Quality of pain is described as pressure, Pain began 3 episodes over the past week. Last episode was this morning. Pain has improved. Now a 4/10. Neuro: Level of Consciousness is awake, alert, obeys commands, Oriented to person, place, time, situation, Bakery Machine Mechanic Supervisor are equal bilaterally Speech is normal. Respiratory: Airway is patent Respiratory effort is even, unlabored, Respiratory pattern is regular, symmetrical, Denies cough, shortness of breath. : No signs and/or symptoms were reported regarding the genitourinary system. EENT: Nares are clear Oral mucosa is moist. 08:05 Reassessment: Patient and/or family updated on plan of care and expected duration. Pain ss level reassessed. Patient states feeling better. 09:21 Reassessment: Patient appears in no apparent distress at this time. attempted to call ss report. Nurse unavailable. 09:41 Reassessment: Report given to SALLY Middleton. Vital Signs: 06:31 BP 143 / 89; Pulse 68; Resp 16 S; Temp 98.2(O); Pulse Ox 100% on R/A; Weight 73.48 kg bb (R); Height 4 ft. 11 in. (149.86 cm) (R); Pain 3/10; 08:36 BP 102 / 56; Pulse 53; Resp 16; Pulse Ox 100% on R/A; Pain 4/10; ss 06:31 Body Mass Index 32.72 (73.48 kg, 149.86 cm) bb ED Course: 06:14 Patient arrived in ED. cl3 06:22 Law Morocho MD is Attending Physician. yanira 06:27 Miko Mukherjee, SALLY is Primary Nurse. em 06:34 Triage completed. bb 06:35 Arm band placed on Patient placed in an exam room, on a stretcher, on monitor worker, bb on pulse oximetry. EKG completed in triage. Results shown to MD. 06:39 Jose Miguel Templeton MD is Hospitalizing Provider. yanira 06:44 XRAY Chest (1 view) In Process Unspecified. EDMS 06:49 No provider procedures requiring assistance completed. Patient maintains SpO2 em saturation greater than 95% on room air. 06:49 Initial lab(s) drawn, by me, sent to lab. Inserted saline lock: 22 gauge in right em antecubital area, using aseptic technique. Blood collected. 06:50 Patient has correct armband on for positive identification. Placed in gown. Bed in low em position. Call light in reach. Side rails up X2. court monitor on. Pulse ox on. NIBP on. 09:49 Patient admitted, IV remains in place. ss Administered Medications: 06:36 Drug: Aspirin Chewable Tablet 324 mg Route: PO; em 07:04 Follow up: Response: No adverse reaction em 06:49 Drug: NS 0.9% 1000 ml Route: IV; Rate: 125 ml/hr; Site: right antecubital; em 07:58 Follow up: IV Status: Infusion continued upon admission ss 07:05 Not Given (Physician Discretion): Lovenox 1 mg/kg Sub-Q once em 07:05 Drug: Pepcid 20 mg Route: IVP; Site: right antecubital; em 07:57 Follow up: Response: No adverse reaction ss 07:06 Drug: Lovenox 80 mg Route: Sub-Q; Site: right lower abdomen; em 07:56 Follow up: Response: No adverse reaction ss 07:06 Drug: Zofran (Ondansetron) 4 mg Route: IVP; Site: right antecubital; em 07:55 Follow up: Response: No adverse reaction ss 07:22 Drug: Lopressor (metoprolol TARTRATE) 50 mg Route: PO; ss 07:57 Follow up: Response: No adverse reaction ss 07:37 Drug: PlaVIX 300 mg Route: PO; ss 08:51 Follow up: Response: No adverse reaction ss 07:43 Drug: morphine 2 mg Route: IVP; Site: right antecubital; ss 07:56 Follow up: Response: No adverse reaction; Pain is decreased ss Outcome: 06:40 Decision to Hospitalize by Provider. yanira 09:49 Admitted to Tele accompanied by tech, via wheelchair, room 207, with chart, Report ss called to SALLY Middleton 09:49 Condition: good 09:49 Instructed on the need for admit. 10:01 Patient left the ED. ss Signatures: Dispatcher [employer] Mir MD MD cha Munoz, Edgar, RN RN Nicole Girard RN RN Rosa Davies RN RN ss Lewis, Charde cl3
[2020-08-19] MEDS ORDERED: NA CHLORIDE 0.9% 1,000 ML ONE (06:50)
[2020-08-19] MEDS ORDERED: ASPIRIN 81 MG CHEWABLE TABLET ONE (06:50)
[2020-08-19 06:58] LABS: Absolute Lymphocytes (CBC) 0.9 K/uL (0.7-4.9); Basophils % 0.6 % (0-1.3); Hematocrit 40.8 % (36.0-45.0); Lymphocytes % 8.7 % (15.3-44.8); MPV 8.9 fL (7.6-11.3); RBC Red Blood Cell Count 4.43 M/uL (3.86-4.86)
[2020-08-19] MEDS ORDERED: METOPROLOL TAR 50 MG TAB ONE (07:11)
[2020-08-19] MEDS ORDERED: ENOXAPARIN 80 MG/0.8 ML SQ ONE (07:11)
[2020-08-19] MEDS ORDERED: FAMOTIDINE 20 MG/2 ML VIAL IV ONE (07:11)
[2020-08-19 07:14] LABS: Protime INR 0.91
[2020-08-19 07:18] LABS: ALT/SGPT 37 U/L (12-78); AST/SGOT 21 U/L (15-37); Albumin 3.8 g/dL (3.4-5.0); Alkaline Phosphatase 75 U/L (45-117); BUN Blood Urea Nitrogen 8 mg/dL (7-18); Bicarbonate 26 mmol/L (21-32); Bilirubin Direct < 0.1 mg/dL (0-0.2); Bilirubin Total 0.4 mg/dL (0.2-1.0); Glucose Level 103 mg/dL (74-106); Lipase 108 U/L (73-393); Magnesium 2.6 mg/dL (1.8-2.4); NT PRO-BNP 270 pg/mL (<125); Potassium 4.2 mmol/L (3.5-5.1); Protein, Total 7.9 g/dL (6.4-8.2); Sodium Level 141 mmol/L (136-145); Troponin (Emerg Dept Use Only) 0.05 ng/mL (0.0-0.045)
[2020-08-19] MEDS ORDERED: ONDANSETRON 4 MG/2 ML VIAL ONE (07:18)
[2020-08-19 07:42] LABS: Blood Morphology Comment NOT SEEN (NOT SEEN); Platelet Estimate ADEQ; White Blood Cell Scan OK (OK)
--- NOTE | 2020-08-19 07:44 | P.HP ---
Certification for Inpatient Patient admitted to: Observation With expected LOS: <2 Midnights Practitioner: I am a practitioner with admitting privileges, knowledge of patient current condition, hospital course, and medical plan of care. Services: Services provided to patient in accordance with Admission requirements found in Title 42 Section 412.3 of the Code of Federal Regulations Patient History Date of Service: 08/19/20 Reason for admission: NSTEMI History of Present Illness: 59-year-old female, PMH: GERD, HTN who presents to the ED due to severe chest pain that woke her up this morning at 4:30 a.m.. She reports having 3 episodes, lasting 15-20 min each. They are located in mid/upper caste radiating to bilateral neck/draw. She was concerned due to her father having an AR at age 39. She is a smoker-1 pack per day. She currently rates her pain of 2 /10. She otherwise denies any recent illness, no fever, chills, shortness of breath, nausea/vomiting, diarrhea, abdominal pain. ED workup revealed EKG without ischemic changes, initial troponin 0.05. Labs otherwise unremarkable Allergies No Known Allergies Allergy (Verified 05/29/19 14:23) Home Medications: Irbesartan [Avapro] 300 mg PO [id number] 05/29/19 Cetirizine HCl [Zyrtec] 10 mg PO BID 08/19/20 Esomeprazole Mag Trihydrate [Nexium] 40 mg PO DAILY 08/19/20 - Past Medical/Surgical History -: HTN -: GERD -: prior colectomy/colostomy and takedown -: Tubal ligation - Family History Mother -: Heart disease (AR at 39) - Social History Smoking Status: Current every day smoker Place of Residence: Home Review of Systems 10-point ROS is otherwise unremarkable Physical Examination - Studies Laboratory Data (last 24 hrs) 08/19/20 06:42: PT 10.5, INR 0.91 08/19/20 06:42: WBC 10.20, Hgb 13.7, Hct 40.8, Plt Count 277 08/19/20 06:42: Sodium 141, Potassium 4.2, BUN 8, Creatinine 0.69, Glucose 103, Magnesium 2.6 H, Total Bilirubin 0.4, AST 21, ALT 37, Alkaline Phosphatase 75, Lipase 108 Assessment and Plan - Advance Directives Does patient have a Living Will: No Does patient have a Durable POA for Healthcare: No Physician Review Additional Text: Physical exam General: NAD HEENT: Normal conjunctiva, sclerae anicteric CV: Regular rate and rhythm, no murmur, chest nontender Pulm: Clear to auscultation bilaterally Abdomen: Nontender, nondistended Ext: No edema, no rash Neuro: AAOx3, moving all extremities Problem List: Chest Pain, NSTEMI HTN -trop: 0.05, chest pressure / pain, concerning for cardiac etiology -cardiology consulted -received ASA, beta yazan, plavix in ED- -continue daily aspirin, BB, statin -heparin drip per cardiology -check lipids -trend trop q6h -monitor on telemetry Code: full Dispo: anticipate dc home in 24-48hrs Time Spent Managing Pts Care (In Minutes): 60
[2020-08-19] MEDS ORDERED: CLOPIDOGREL 75 MG TABLET ONE (07:52)
[2020-08-19] MEDS ORDERED: MORPHINE 2 MG/ML SYR ONE (07:56)
[2020-08-19] MEDS ORDERED: HEPARIN/D5W 25,000 UNITS/500 ML BAG IV PRN (08:07)
[2020-08-19] MEDS ORDERED: HEPARIN 10,000 UNIT/10 ML VIAL IV ONE (08:07)
--- NOTE | 2020-08-19 08:18 | RAD REPORT ---
EXAM DESCRIPTION: RAD - Chest Single View - 08/19/2020 6:44 am CLINICAL HISTORY: CHEST PAIN COMPARISON: Two view chest March 2012 TECHNIQUE: AP portable chest image was obtained 08/19/2020 6:44 am . FINDINGS: No focal mass or consolidation. Interstitial pattern is accentuated by portable technique and shallow inspiration. Heart and vasculature are normal. No measurable pleural effusion and no pneu mothorax. No acute bony abnormality seen. No acute aortic findings suspected. IMPRESSION: No focal mass or consolidation peer Interstitial pattern is accentuated by a lower lung volume and portable technique. This could potenti ally mask minimal interstitial edema or infiltrate.
[2020-08-19 11:00] VITALS: BMI 32.7
[2020-08-19] MEDS: MORPHINE 2 MG/ML SYR IV PRN (11:24)
[2020-08-19] MEDS: NA CHLORIDE 0.9% 1,000 ML IV SCH (12:00)
[2020-08-19 14:14] LABS: Urine Appearance CLEAR; Urine Bilirubin NEGATIVE (NEG); Urine Blood NEGATIVE (NEG); Urine Color YELLOW; Urine Glucose NEGATIVE (NEG); Urine Protein NEGATIVE (NEG); Urine Urobilinogen 0.2 mg/dL (0.2-1.0)
[2020-08-19 14:20] LABS: Troponin I 0.49 ng/mL (0.0-0.045)
[2020-08-19 14:33] LABS: Urine Microscopic Reflex ORDER UMIC
[2020-08-19 14:55] LABS: Urine Bacteria <20 /HPF (<20); Urine Mucus 1+ /HPF (NONE SEEN); Urine RBC <5 /HPF (NONE SEEN)
[2020-08-19] MEDS: NICOTINE 21 MG/PAT TD SCH (15:00)
[2020-08-19] MEDS ORDERED: LIDOCAINE 1% 20 ML MDV ONE (15:16)
[2020-08-19] MEDS ORDERED: HEPA 1000U/500MLS 2,000 UNIT/1,000 ML BAG IV ONE (15:16)
[2020-08-19] MEDS ORDERED: HEPARIN 5000 UNIT/ML 1 ML VIAL ONE (16:39)
[2020-08-19] MEDS ORDERED: FENTANYL CITR 100 MCG/2 ML ONE ×2 (16:39→17:29)
[2020-08-19] MEDS ORDERED: MIDAZOLAM HCL 2 MG/2 ML INJ ONE (16:39)
[2020-08-19] MEDS ORDERED: ATROPINE SULF 1 MG/10 ML SYR IV ONE (16:40)
[2020-08-19] MEDS ORDERED: VERAPAMIL HCL 10 MG/4 ML VIAL IV ONE (16:40)
[2020-08-19] MEDS ORDERED: TICAGRELOR 90 MG TABLET PO ONE (17:16)
[2020-08-19] MEDS ORDERED: ASPIRIN 325 MG TAB ONE (17:56)
[2020-08-19] MEDS: METOPROLOL TAR 25 MG TAB PO SCH (18:00)
--- NOTE | 2020-08-19 20:40 | CON ---
Date of Consultation: 08/19/2020 Reason For Consultation: Chest pain with elevated troponin. History Of Present Illness: This is a middle-aged female who woke up this morning with severe chest heaviness that radiated to the neck and jaw and left upper extremity with nausea. This was about 30 minutes and kept going and going throughout the day. Relieved in the ER. Troponin was initially sli ghtly elevated and went up to 0.4. At the time of my evaluation, she was chest pain free. She has h istory of hypertension and she is heavy smoker, a pack per day for a long time and no other medical h istory. Past Medical History: Hypertension. Medications: Refer to reconciliation sheet for detailed list. Allergies: NO KNOWN DRUG ALLERGIES. Family History: No premature coronary artery disease or cancer. Social History: She is a smoker, 1 pack per day. Does not drink or use any drugs. Review of Systems: All systems reviewed and negative except as mentioned in the HPI. Physical Examination: Vital Signs: Reviewed and they were stable. Head and Neck: Pupils are equal, reactive to light. I ntact eye movements. No JVD. No cervical lymphadenopathy. Neck: Supple. Thyroid is not enlarged. Lungs: Clear to auscultation bilaterally. No rhonchi, rales, or crackles. No accessory muscle use. Heart: Regular rate and rhythm. No extra sounds. Abdomen: Soft, nontender. Bowel sounds positive. No organomegaly. No rigidity or rebound. Extremities: No edema, clubbing, cyanosis. Intact pulses. Skin: No rashes. Neurologic: Alert, awake, confused. No acute focal deficits appreciated. Investigations: Labs were reviewed. Troponin elevation as outlined above. Assessment And Recommendation: 1.Non-ST elevation myocardial infarction. The patient has been n.p.o. We will plan for urgent kely nary angiogram to further evaluate coronary anatomy, which will be done today afternoon. Continue as pirin, nitroglycerin patch, blood pressure control. 2.Hypertension. Continue home medications. Adjust blood pressure less than 140/90. 3.Smoking disorder. Patient was counseled against smoking in details. SR/MODL Voice ID: [id number] Report ID: [id number]
[2020-08-19] MEDS ORDERED: ATORVASTATIN 20 MG TAB PO SCH (21:00)
[2020-08-19] MEDS ORDERED: HYDROCODONE/APAP 5/325 MG TAB PO PRN (21:23)
[2020-08-20] MEDS: NA CHLORIDE 0.9% 1,000 ML IV SCH ×2 (01:20→05:51)
--- NOTE | 2020-08-20 01:29 | OP ---
Date of Procedure: 08/19/2020 Surgeon: TANIA LAINEZ Procedure Performed: 1.Coronary angiogram. 2.IFR of mid LAD 70% stenosis, significant value of 0.69. 3.PCI of mid LAD severe disease using 2.75 x 20 mm Synergy drug-eluting stent, likely the culprit fo r WI. 4.PCI of severe mid diagonal 1 branch using 2.25 x 12 mm Synergy drug-eluting stent. 5.IVUS of posterior left main 30% stenosis, within normal luminal area of 9.2 square mm. Indication: Non-ST elevation myocardial infarction. Access: Right radial artery 6-Guamanian, closed with TR band. Complications: None. Bleeding: Less than 20 mL. Description Of Procedure: After risks, benefits, and alternatives were explained, the patient agreed to the procedure and signed informed consent. The patient was brought into the cardiac catheterizat ion laboratory, prepped and draped in usual sterile fashion. Then, we gave fentanyl and versed in in cremental doses to achieve adequate moderate sedation. Then, we accessed right radial artery using a pediatric micropuncture kit and placed a 6-Guamanian slender sheath and then we took a 5-Gu[place]ian [place] 4 catheter into the aortic root and engaged left main and right coronary artery, took standard views. Intervention Details: We gave systemic heparin to assure ACT level above 250 and then we took 6-Fren ch EBU 3.5 guide into the aortic root and engaged left main coronary artery and then we took the Come t wire into the left main and into the LAD across the mid LAD stenosis and IFR was recorded to be sev ere at 0.69. Then, we proceeded with PCI, pre-dilated the lesion and then placing 2.75 x 20 mm Syner gy drug-eluting stent with good results and then I took a short run-through wire across the stenosis of the first diagonal branch and re-dilated with a 2.0 x 12 mm Compliant balloon and then placed 2.25 x 12 mm Synergy drug-eluting stent with good results. Then, I took IVUS catheter into the left main into the LAD. Stent was evaluated and the position was excellent and then evaluated the ostial left main disease and luminal area was normal at 9.2 square.mm. Then I took all the wires out and took f inal injection and there was no complication with excellent ABILIO-3 flow and 0% residual stenosis and took the guide out and the catheter was removed and placed TR band with good hemostasis. Findings: 1.Left main ostial 30% with normal luminal area by IVUS of 9.2 square.mm. 2.LAD, mid LAD 70% stenosis with FFR of 0.69, which is very significant, likely the culprit of the s ymptoms status post successful PCI as above. 3.Severe mid diagonal 1 branch disease status post successful PCI as above. 4.Left circumflex has mid 50% stenosis and distal 50% stenosis with ABILIO-3 flow. 5.RCA of 30% and then 30% in-stent dominant circulation. Conclusions: 1.Severe mid LAD and diagonal 1 disease status post successful PCI as above. 2.Moderate left circumflex disease. Plan: 1.The patient was loaded with 180 mg of Brilinta. Continue 90 mg q.12 hours. High-dose statin, asp irin 81 mg daily. 2.Encouraged to quit smoking. 3.Follow up with me in the office after discharge in 4 weeks and we will plan to see. If the patien t continues to have symptoms, we will plan to bring back to evaluate the left circumflex. SR/MODL Voice ID: [id number] Report ID: [id number]
[2020-08-20] MEDS: MORPHINE 2 MG/ML SYR IV PRN (01:55)
[2020-08-20] MEDS: METOPROLOL TAR 25 MG TAB PO SCH (05:51)
[2020-08-20 05:57] LABS: Absolute Lymphocytes (CBC) 1.1 K/uL (0.7-4.9); Basophils % 0.8 % (0-1.3); Hematocrit 34.5 % (36.0-45.0); Lymphocytes % 16.5 % (15.3-44.8)
[2020-08-20 06:23] LABS: Magnesium 2.2 mg/dL (1.8-2.4)
[2020-08-20] MEDS: NICOTINE 21 MG/PAT TD SCH (08:04)
[2020-08-20 08:58] VITALS: O2SAT 98
[2020-08-20] MEDS ORDERED: ASPIRIN EC 81 MG TAB PO SCH (09:00)
[2020-08-20] MEDS ORDERED: TICAGRELOR 90 MG TABLET PO SCH (09:00)
--- NOTE | 2020-08-20 09:41 | P.DS ---
Admission Date: 08/19/20 Discharge Date: 08/20/20 Disposition: ROUTINE DISCHARGE Discharge Condition: GOOD Reason for Admission: NSTEMI Consultations: Cardiology - Dr. Manning Procedures: CXR (08/19): No focal mass or consolidation peer. Interstitial pattern is accentuated by a lower lung volume and portable technique. This could potentially mask minimal interstitial edema or infiltrate. Cardiac catheterization (08/19): Findings: 1. Left main ostial 30% with normal luminal area by IVUS of 9.2 square.mm. 2. LAD, mid LAD 70% stenosis with FFR of 0.69, which is very significant, lik katalina the culprit of the symptoms status post successful PCI as above. 3. Severe mid diagonal 1 branch disease status post successful PCI as above. 4. Left circumflex has mid 50% stenosis and distal 50% stenosis with ABILIO-3 flow. 5. RCA of 30% and then 30% in-stent dominant circulation. Conclusions: 1. Severe mid LAD and diagonal 1 disease status post successful PCI as above. 2. Moderate left circumflex disease. Problem List: NSTEMI HTN Brief History of Present Illness: 59yo F, PMH: GERD, HTN who presents to the ED due to severe chest pain that woke her up this morning at 4:30 a.m.. She reports having 3 episodes, lasting 15-20 min each. They are located in mid/upper caste radiating to bilateral neck/draw. She was concerned due to her father having an UT at age 39. She is a smoker-1 pack per day. She currently rates her pain of 2 /10. She otherwise denies any recent illness, no fever, chills, shortness of breath, nausea/vomiting, diarrhea, abdominal pain. ED workup revealed EKG without ischemic changes, initial troponin 0.05. Labs otherwise unremarkable Hospital Course: Patient was admitted for concern for NSTEMI, initial troponin 0.05, and speaks to 0.75. Cardiology was consulted and the patient was taken for cardiac catheterization in the evening of 08/19. Patient was found to have severe mid LAD and diagonal disease - underwent placement x2. She was also noted to have moderate left circumflex disease. On day of discharge, patient reported being chest pain free, was feeling well, tolerating p.o. diet, voiding without issue. She is to follow up with Dr. Manning in 1 month. She is discharged with prescriptions for aspirin, metoprolol, Brilinta, and atorvastatin. Confirmation was obtained that Brilinta was covered by insurance prior to discharge. Patient was highly encouraged to quit smoking. Patient's blood pressure was in the low normal side during her hospitalization. She was advised to hold her irbesartan for the next day or 2, and recheck BP at home prior to restarting. Vital Signs/Physical Exam: Physical exam: General: NAD HEENT: Normal conjunctiva, sclerae anicteric CV: Regular rate and rhythm, no murmur, chest nontender Pulm: Clear to auscultation bilaterally Abdomen: Nontender, nondistended Ext: No edema, no rash Neuro: AAOx3, moving all extremities Temp Pulse Resp BP Pulse Ox 97.8 F 56 17 132/60 97 08/20/20 08:00 08/20/20 08:00 08/20/20 08:00 08/20/20 08:00 08/20/20 08:00 Laboratory Data at Discharge: WBC 6.80 K/uL (4.3-10.9) D 08/20/20 05:36 Hgb 11.3 g/dL (12.0-15.0) L 08/20/20 05:36 Hct 34.5 % (36.0-45.0) L D 08/20/20 05:36 Plt Count 221 K/uL (152-406) D 08/20/20 05:36 PT 10.5 SECONDS (9.5-12.5) 08/19/20 06:42 INR 0.91 08/19/20 06:42 APTT 28.6 SECONDS (24.3-36.9) 08/19/20 06:42 Sodium 141 mmol/L (136-145) 08/20/20 05:36 Potassium 4.0 mmol/L (3.5-5.1) 08/20/20 05:36 BUN 12 mg/dL (7-18) 08/20/20 05:36 Creatinine 0.68 mg/dL (0.55-1.3) 08/20/20 05:36 Glucose 96 mg/dL (74-106) 08/20/20 05:36 Magnesium 2.2 mg/dL (1.8-2.4) 08/20/20 05:36 Total Bilirubin 0.4 mg/dL (0.2-1.0) 08/19/20 06:42 AST 21 U/L (15-37) 08/19/20 06:42 ALT 37 U/L (12-78) 08/19/20 06:42 Alkaline Phosphatase 75 U/L (45-117) 08/19/20 06:42 Troponin I Cancelled 08/20/20 00:42 Triglycerides 223 mg/dL (<150) H 08/19/20 13:41 Cholesterol 198 mg/dL (<200) 08/19/20 13:41 HDL Cholesterol 51 mg/dL (40-60) 08/19/20 13:41 Cholesterol/HDL Ratio 3.88 08/19/20 13:41 Lipase 108 U/L (73-393) 08/19/20 06:42 Home Medications: Irbesartan [Avapro] 300 mg PO [id number] 05/29/19 Cetirizine HCl [Zyrtec] 10 mg PO BID 08/19/20 Esomeprazole Mag Trihydrate [Nexium] 40 mg PO DAILY 08/19/20 Aspirin [Aspirin EC 81 MG] 81 mg PO DAILY 30 Days #30 tablet. 08/20/20 Atorvastatin Calcium 40 mg PO BEDTIME 30 Days #30 tablet 08/20/20 Metoprolol Tartrate 25 mg PO BID 30 Days #60 tablet 08/20/20 Ticagrelor [Brilinta*] 90 mg PO BID 30 Days #60 tablet 08/20/20 New Medications: Aspirin [Aspirin EC 81 MG] 81 mg PO DAILY 30 Days #30 tablet. Atorvastatin Calcium 40 mg PO BEDTIME 30 Days #30 tablet Ticagrelor [Brilinta*] 90 mg PO BID 30 Days #60 tablet Metoprolol Tartrate 25 mg PO BID 30 Days #60 tablet Physician Discharge Instructions: You were found to have blockages in your heart (coronary arteries) and underwent stent placement. You are discharged home on aspirin 81mg, Brilinta (ticagrelor) 90mg twice a day, atorvastatin 40mg at bedtime, and metoprolol 25mg twice a day. Your blood pressure was in the normal range during hospitalization. Recommend checking your blood pressure at home and restarting your Irbesartan once your blood pressure is >140/90. The metoprolol can lower your blood pressure as well and you want to avoid getting too low. Please follow up with your PCP in the next week. Follow up with Dr. Manning (Cardiology) in 4 weeks. As discussed, recommend discontinuation of any tobacco/nicotine products. Diet: AHA Activity: Ad tung Followup: Airam Zendejas DO, DO [Primary Care Provider] - Jones Manning MD [ACTIVE - CAN ADMIT] - Time spent managing pt's care (in minutes): 45
[2020-08-20 12:06] VITALS: BP 131/59; TEMP 97.5
== END 2020-08-20 12:25 | disposition home or self-care (01) | DRG 247 ==
LOC: ER 06:12 → ERHOLD 07:37 → 2ND 09:44 → OBSVTOIN 22:04
PROVIDERS: ADMIT Hospitalist; ATTEND Hospitalist
PROC: 027035Z Dilation of Coronary Artery, One Artery with Two Drug-eluting Intraluminal Devices, Percutaneous Approach (ICD-10-PCS; principal; 2020-08-19)
PROC: 4A023N7 Measurement of Cardiac Sampling and Pressure, Left Heart, Percutaneous Approach (ICD-10-PCS; 2020-08-19)
PROC: B2111ZZ Fluoroscopy of Multiple Coronary Arteries using Low Osmolar Contrast (ICD-10-PCS; 2020-08-19)
DX: I21.4 Non-ST elevation (NSTEMI) myocardial infarction (principal); I10 Essential (primary) hypertension; K21.9 Gastro-esophageal reflux disease without esophagitis; F17.210 Nicotine dependence, cigarettes, uncomplicated; Z79.899 Other long term (current) drug therapy; Z98.51 Tubal ligation status; Z79.82 Long term (current) use of aspirin; Z90.49 Acquired absence of other specified parts of digestive tract; Z20.822 Contact with and (suspected) exposure to COVID-19
CPT/HCPCS: 36415; 71045; 80048; 80061; 80076; 81003; 81015; 83690; 83735; 83880; 84484; 85025; 85347; 85610; 85730; 87086; 87088; 92928; 92929; 93005; 93454; 94760; 96361; 96372; 96374; 96375; 99285; C1725; C1893; G0378; J1644; J2250; J2270; J2405; J3010; J7030; U0003

== ENCOUNTER 2023-03-15 06:30 | Day surgery (SDC) | payer BC ==
[2023-03-12 13:08] LABS: Absolute Lymphocytes (CBC) 1.4 K/uL (0.7-4.9); Hematocrit 39.3 % (36.0-45.0); Lymphocytes % 11.4 % (15.3-44.8); MCV 89.5 fL (80-100); MPV 8.4 fL (7.6-11.3); Platelets 301 thou/uL (152-406); RBC Red Blood Cell Count 4.39 M/uL (3.86-4.86)
[2023-03-12 13:12] LABS: Protime INR 0.95
[2023-03-12 13:21] LABS: Potassium 4.2 mEq/L (3.5-5.1)
--- NOTE | 2023-03-12 13:55 | RAD REPORT ---
EXAM DESCRIPTION: RAD - Chest Pa And Lat (2 Views) - 03/12/2023 1:18 pm CLINICAL HISTORY: pre op pending abdominal angiogram. Hypertension COMPARISON: Chest Single View dated 08/19/2020; CHEST PA AND LAT 2 VIEW dated 04/11/2012; CHEST SINGLE VIEW dated 03/18/2009; CHEST PA AND LAT 2 VIEW dated 04/14/2008 TECHNIQUE: PA and lateral views of the chest were obtained. FINDINGS: The lungs are clear. Heart size is normal and central vasculature is within normal limits. No pleural effusion or pneumothorax seen. No acute bony finding noted. IMPRESSION: No acute cardiopulmonary process.
--- NOTE | 2023-03-13 13:05 | EKG ---
Test Date: 2023-03-12 Test Time: 12:46:23 Diagram Clerk: AWA MEASUREMENT RESULTS: Intervals: Rate: 56 [place]: 134 QRSD: 78 QT: 452 QTc: 436 [place]: P: 57 [place]: 134 QRS: 70 T: 76 INTERPRETIVE STATEMENTS: Sinus bradycardia Nonspecific ST abnormality Abnormal ECG Compared to ECG 08/19/2020 06:20:53 ST (T wave) deviation now present Sinus rhythm no longer present Electronically Signed On 03-13-23 13:02:16 CDT by Jones Manning
[2023-03-15] MEDS ORDERED: NA CHLORIDE 0.9% 500 ML ONE (07:28)
[2023-03-15] MEDS ORDERED: LIDOCAINE 1% 20 ML MDV ONE (08:16)
[2023-03-15] MEDS ORDERED: FENTANYL CITR 100 MCG/2 ML ONE ×2 (08:16→11:49)
[2023-03-15] MEDS ORDERED: HEPA 1000U/500MLS 2,000 UNIT/1,000 ML BAG IV ONE (08:16)
[2023-03-15] MEDS ORDERED: MIDAZOLAM HCL 2 MG/2 ML INJ ONE (08:16)
[2023-03-15] MEDS ORDERED: NITROGLYCERIN/D5W 25 MG/250 ML BTL IV ONE (08:17)
[2023-03-15] MEDS ORDERED: VERAPAMIL HCL 10 MG/4 ML VIAL IV ONE (08:17)
[2023-03-15] MEDS ORDERED: HEPARIN 10,000 UNIT/10 ML VIAL IV ONE (08:17)
[2023-03-15] MEDS ORDERED: HEPARIN 5000 UNIT/ML 1 ML VIAL ONE (08:17)
[2023-03-15] MEDS ORDERED: CLOPIDOGREL 75 MG TABLET ONE (09:44)
--- NOTE | 2023-03-15 13:15 | OP ---
Date of Procedure: 03/15/2023 Surgeon: TANIA LAINEZ Procedures Performed: 1.Peripheral angiogram. 2.Balloon angioplasty of severe left common femoral artery stenosis. Used a 6.0 x 40 mm drug-coated balloon. Indication: Peripheral vascular disease with pain to lower extremities and abnormal Doppler. Access: Right femoral artery 6-Cameroonian closed with StarClose. Complications: None. Bleeding: Less than 20 mL. Anesthesia: Total sedation time was 50 minutes. I used Versed and fentanyl. Description Of Procedure: After risks, benefits, alternatives were explained, patient agreed to proc edure and signed informed consent. Patient was brought into the cardiac catheterization laboratory, prepped and draped in usual sterile fashion. Then, I accessed right femoral artery using micropunctu re kit, ultrasound guidance, and fluoroscopy, placed 6-Cam[place]onian [place] sheath. Then, I took a Smeet ht pigtail catheter into distal aorta, performed aortogram with runoff and then I exchanged for a 6-F rench destination sheath after crossing over to other sides and placed destination sheath in the dist al external iliac artery and performed full coronary angiogram and then sent a [place] Advantage wire a ll the way to the SFA on the left after giving systemic heparin to assure ACT level above 250, and th en using a 6.0 x 40 mm drug-coated balloon, lesion was treated successfully and expanded very well. Post balloon angiogram was satisfactory. No dissection. I then removed the wire and the sheath and StarClose was used for closure with good hemostasis. Findings: 1.Distal aorta widely patent. 2.Right common iliac is normal and right external iliac has diffuse 70% to 80%. Then the right comm on femoral is normal. Right profunda is normal and the right SFA has focal 30% proximally and then w idely patent after that and the triple vessel below the knee widely open. 3.Left common iliac; left external iliac widely patent and the left common femoral has focal 70% to 80% stenosis, status post successful balloon angioplasty as above and the left profunda is widely pat ent. Left SFA is normal and below the knee on the left side, tibial vessels are patent with the exce ption of the peroneal and the mid segment is totally occluded, but it has blood back from the foot fr om the other arteries. Conclusion: 1.Severe left common femoral artery stenosis, status post balloon angioplasty as above, successful. 2.Severe right external iliac artery stenosis. Plan for staged balloon angioplasty in 4 to 6 weeks. SR/MODL Voice ID: [id number] Report ID: [id number]
[2023-03-15 14:20] VITALS: O2SAT 100
[2023-03-15 19:44] VITALS: BP 128/79
== END 2023-03-15 15:05 | disposition home or self-care (01) ==
LOC: CCL 06:30
PROVIDERS: ATTEND Internal Medicine
DX: I70.223 Atherosclerosis of native arteries of extremities with rest pain, bilateral legs (principal); I25.10 Atherosclerotic heart disease of native coronary artery without angina pectoris; I10 Essential (primary) hypertension; E78.5 Hyperlipidemia, unspecified; F17.210 Nicotine dependence, cigarettes, uncomplicated; Z95.5 Presence of coronary angioplasty implant and graft; Z79.82 Long term (current) use of aspirin; Z79.899 Other long term (current) drug therapy
CPT/HCPCS: 36200; 36245; 36246; 36415; 37224; 71046; 76937; 80048; 85025; 85347; 85610; 85730; 93005; C1725; C1769; C1893; J1644; J2001; J2250; J3010; J7040

== ENCOUNTER 2023-05-15 07:45 | Day surgery (SDC) | payer BC ==
[2023-05-09 14:44] LABS: Hematocrit 36.6 % (36.0-45.0); Lymphocytes % 24.7 % (15.3-44.8); MCV 89.5 fL (80-100); MPV 8.4 fL (7.6-11.3); Platelets 267 thou/uL (152-406); RBC Red Blood Cell Count 4.09 M/uL (3.86-4.86)
[2023-05-09 14:50] LABS: Protime INR 1.02
[2023-05-09 15:04] LABS: Potassium 3.7 mEq/L (3.5-5.1)
[2023-05-15] MEDS ORDERED: NA CHLORIDE 0.9% 500 ML ONE (08:36)
[2023-05-15] MEDS ORDERED: LIDOCAINE 1% 20 ML MDV ONE ×2 (09:14→10:07)
[2023-05-15] MEDS ORDERED: HEPA 1000U/500MLS 2,000 UNIT/1,000 ML BAG IV ONE (09:14)
[2023-05-15] MEDS ORDERED: FENTANYL CITR 100 MCG/2 ML ONE ×2 (09:18→13:29)
[2023-05-15] MEDS ORDERED: MIDAZOLAM HCL 2 MG/2 ML INJ ONE (09:18)
[2023-05-15] MEDS ORDERED: ASPIRIN 325 MG TAB ONE (09:19)
[2023-05-15] MEDS ORDERED: CLOPIDOGREL 75 MG TABLET ONE (09:19)
[2023-05-15] MEDS ORDERED: HEPARIN 10,000 UNIT/10 ML VIAL IV ONE (09:20)
[2023-05-15] MEDS ORDERED: TICAGRELOR 90 MG TABLET PO ONE (09:20)
[2023-05-15] MEDS ORDERED: HEPA 1000U/500MLS 1,000 UNIT/500 ML BAG IV ONE (11:53)
[2023-05-15 12:22] VITALS: TEMP 97.5; O2SAT 100
--- NOTE | 2023-05-15 12:43 | OP ---
Date of Procedure: 05/15/2023 Surgeon: TANIA LAINEZ Procedures Performed: 1.Right lower extremity peripheral angiogram. 2.Selective coronary angiogram of the LAD and left circumflex. Indications: 1.Peripheral vascular disease with known right external artery stenosis. 2.Coronary artery disease with active chest pain. Access: Left femoral artery 6-Barbadian closed with manual pressure. Complications: None. Bleeding: Less than 20 mL. Anesthesia: Total sedation time was 50 minutes. Description Of Procedure: After risks, benefits, and alternatives were explained, the patient agreed to procedure and signed informed consent. [facility], prepped and draped in usual sterile fashion. Then, I accessed left femoral artery using micr opuncture kit, ultrasound guidance, fluoroscopy, placed 6-Bar[place]adian [place] sheath and then I sent an O mni Flush catheter over the [place] Advantage and crossed over to the other side and then exchanged for a 6-Barbadian 45 cm sheath and then performed angiogram. There was no stenosis of the right iliac exte rnal artery. On the diagnostic angiogram, there was about 80% to 90% stenosis. However, it seems li ke it was a spasm as the access was the right common femoral artery at that time, took multiple views , and there was no evidence of significant stenosis and so decided to stop the procedure and the alirio ent was complaining of active chest pain. She had 2 stents put in, 1 in the LAD and 1 in the diagona l, so a JL4 catheter was advanced over J-wire into the aortic root, engaged left main and took standa rd views and there was no restenoses and the arteries are clean of new disease. I then removed the c atheter and the sheath. Manual pressure was used for closure with good hemostasis. Findings: 1.Right common iliac and right external iliac, right internal iliac arteries are all widely patent a nd the right common femoral artery is patent. The right profunda is patent and the right SFA has mil d 20% to 30% stenosis and triple vessel below the knee are within normal limits. 2.Left main is normal, LAD proximal segment is normal. Widely patent mid LAD stent and proximal twyla gonal 1 stent. The stability is normal and the left circumflex is normal. Conclusions: 1.No significant right lower extremity peripheral vascular disease. 2.Widely patent LAD and left circumflex stents. Plan: Medical management. SR/MODL Voice ID: [id number] Report ID: [id number]
[2023-05-15] MEDS ORDERED: FENTANYL CITR 100 MCG/2 ML IV ONE (13:20)
[2023-05-15 16:53] VITALS: BP 131/60
--- NOTE | 2023-05-17 15:38 | EKG ---
Test Date: 2023-05-09 Test Time: 15:29:17 [employer]: ARMAAN MEASUREMENT RESULTS: Intervals: Rate: 60 [place]: 136 QRSD: 84 QT: 424 QTc: 424 [place]: P: 58 TN: 136 QRS: 84 T: 69 INTERPRETIVE STATEMENTS: Normal sinus rhythm Normal ECG Compared to ECG 03/12/2023 12:46:23 Sinus bradycardia no longer present ST (T wave) deviation no longer present Electronically Signed On 05-17-23 15:20:02 CLINICAL RESEARCH SPECIALIST by Jones Manning
== END 2023-05-15 16:50 | disposition home or self-care (01) ==
LOC: CCL 07:45
PROVIDERS: ATTEND Internal Medicine
DX: I70.223 Atherosclerosis of native arteries of extremities with rest pain, bilateral legs (principal); I25.10 Atherosclerotic heart disease of native coronary artery without angina pectoris; I10 Essential (primary) hypertension; K21.9 Gastro-esophageal reflux disease without esophagitis; Z95.5 Presence of coronary angioplasty implant and graft; F17.200 Nicotine dependence, unspecified, uncomplicated
CPT/HCPCS: 93005; 85025; 80048; 36415; 83721; 85610; 85347 ×3; 85730; 36245; 75710; 93454; 76937; C1893; Q9966; C1769; J2001 ×2; J2250; J3010 ×2; J7040; 36200; 75630; 99152; 99153

== ENCOUNTER 2024-03-18 10:38 | Emergency (ER) | payer BC ==
--- NOTE | 2024-03-18 11:17 | RAD REPORT ---
EXAMINATION: TWO VIEW CHEST XR CLINICAL INDICATION: COUGH TECHNIQUE: 2 views of the chest was performed. COMPARISON: 03/12/2023 FINDINGS: The lungs are hyperexpanded suggesting COPD. The heart is upper limit of normal in size. No displaced fractures evident. IMPRESSION: COPD is suspected without acute finding identified. The USPSTF recommends annual screening for lung cancer with low-dose computed tomography (LDCT) in ad ults aged 50 to 80 years who have a 20 pack-year smoking history and currently smoke or have quit within the past 15 years. Screening should be discontinued once a person has not smoked for 15 years or develops a health problem that substantially limits life expectancy or the ability or willingness to have curative lung surgery.
[2024-03-18 11:29] LABS: SARS-CoV-2 Antigen CONTROL BLUE LINE VIS/BG OK; SARS-CoV-2 Antigen Rapid Res Negative (Negative)
[2024-03-18] MEDS ORDERED: CEFTRIAXONE 1000 MG/VIAL ONE (12:19)
[2024-03-18] MEDS ORDERED: NA CHLORIDE 0.9% 500 ML ONE (12:20)
[2024-03-18] MEDS ORDERED: AZITHROMYCIN 250 MG TAB ONE (12:20)
[2024-03-18 12:23] LABS: Absolute Lymphocytes (CBC) 0.3 K/uL (0.7-4.9); Absolute Monocytes 0.4 K/uL (0.1-1.3); Absolute Neutrophil 7.3 K/uL (1.8-8.0); Basophils % 0.4 % (0-1.3); Hematocrit 34.6 % (36.0-45.0); Hemoglobin 11.3 g/dL (12.0-15.0); Lymphocytes % 3.9 % (15.3-44.8); MCH 29.2 pg (27.0-35.0); MCHC 32.8 g/dL (32.0-36.0); MCV 88.9 fL (80-100); MPV 8.9 fL (7.6-11.3); Monocytes % 5.5 % (3.3-12.3); Neutrophils % 90.2 % (41.7-73.7); Platelets 203 thou/uL (152-406); RBC Red Blood Cell Count 3.89 M/uL (3.86-4.86); Red Cell Distribution Width 15.3 % (12.1-15.2)
[2024-03-18] MEDS ORDERED: HYDROCODONE/CHLORPHEN 5 ML/OSYR ONE (12:25)
[2024-03-18] MEDS ORDERED: predniSONE 20 MG TAB ONE (12:26)
[2024-03-18] MEDS ORDERED: IPRATROPIUM BROM 0.5MG/2.5ML ONE (12:26)
[2024-03-18] MEDS ORDERED: LEVALBUTEROL 1.25 MG/3 ML NEB ONE (12:26)
[2024-03-18] MEDS ORDERED: METHYLPREDNISOLONE 125 MG INJ ONE (12:26)
[2024-03-18] MEDS ORDERED: BENZONATATE 100 MG CAP PO ONE (12:27)
[2024-03-18] MEDS ORDERED: IBUPROFEN 200 MG TAB PO ONE (12:27)
[2024-03-18] MEDS ORDERED: ACETAMINOPHEN 325 MG TABLET ONE (12:27)
[2024-03-18] MEDS ORDERED: OSELTAMIVIR 75 MG CAP PO ONE (12:27)
[2024-03-18 12:40] LABS: Albumin 3.6 g/dL (3.4-5.0); Albumin/Globulin Ratio 0.9 (1.1-1.8); Bilirubin Total 0.4 mg/dL (0.2-1.0); Globulin 4.1 g/dL (2.3-3.5); Protein, Total 7.7 g/dL (6.4-8.2)
--- NOTE | 2024-03-18 13:45 | ER ---
Nurse's Notes [facility] Name: Elsy Reed Age: 63 yrs Sex: Female : 1960 Arrival Date: 03/18/2024 Time: 10:38 Bed 9 Private MD: Diagnosis: Fever, unspecified;Acute upper respiratory infection, unspecified;COPD/ Chronic obstructive pulmonary disease with (acute) exacerbation;Influenza due to other identified influenza virus with other respiratory manifestations-FLU A Presentation: 03/18 10:50 Chief complaint: Patient states: starting Sunday with cough, fever, congestion, body tm6 aches. Coronavirus screen: Vaccine status: Patient reports receiving the 2nd dose of the covid vaccine. Ebola Screen: Patient negative for fever greater than or equal to 101.5 degrees Fahrenheit, and additional compatible Ebola Virus Disease symptoms Patient denies exposure to infectious person. Patient denies travel to an Ebola-affected area in the 21 days before illness onset. No symptoms or risks identified at this time. Resp Distress? No respiratory distress is noted at this time. Initial Sepsis Screen: Does the patient meet any 2 criteria? No. Patient's initial sepsis screen is negative. Does the patient have a suspected source of infection? No. Patient's initial sepsis screen is negative. Risk Assessment: Do you want to hurt yourself or someone else? Patient reports no desire to harm self or others. Onset of symptoms was March 16, 2024. 10:50 Method Of Arrival: Ambulatory tm6 10:50 Acuity: OMAIRA 4 tm6 Triage Assessment: 10:50 General: Appears uncomfortable, Behavior is calm, cooperative. Pain: Complains of pain tm6 in back, body aches Pain currently is 4 out of 10 on a pain scale. Quality of pain is described as aching. EENT: Reports nasal congestion nasal discharge. Neuro: Level of Consciousness is awake, alert, obeys commands, Oriented to person, place, time, situation. Cardiovascular: Patient's skin is warm and dry. Respiratory: Reports cough that is non-productive, persistent since Sunday Airway is patent Respiratory effort is even, unlabored, Respiratory pattern is regular, symmetrical. GI: No signs and/or symptoms were reported involving the gastrointestinal system. Abdomen is flat, non-distended. : No signs and/or symptoms were reported regarding the genitourinary system. Derm: No signs and/or symptoms reported regarding the dermatologic system. Musculoskeletal: Reports pain in back. Historical: - Allergies: 10:50 No Known Allergies; tm6 - PMHx: 10:50 Diverticulitis; Gastric Reflux; Hypertension; ruptured bowel (Hypertension); tm6 - PSHx: 10:50 tubal ligation (Hypertension); tm6 - Immunization history:: Client reports receiving the 2nd dose of the Covid vaccine. - Infectious Disease History:: Denies. - Social history:: Smoking status: Patient reports the use of cigarette tobacco products, smokes one pack cigarettes per day. Patient uses alcohol, occasionally. Screenin:15 [facility] ED Fall Risk Assessment (Adult) History of falling in the last 3 months, jl7 including since admission No falls in past 3 months (0 pts) Confusion or Disorientation No (0 pts) Intoxicated or Sedated No (0 pts) Impaired Gait No (0 pts) Mobility Assist Device Used No (0 pt) Altered Elimination No (0 pt) Score/Fall Risk Level 0 - 2 = Low Risk Oriented to surroundings, Maintained a safe environment. 13:30 Abuse screen: Denies threats or abuse. Denies injuries from another. Nutritional jl7 screening: No deficits noted. Tuberculosis screening: No symptoms or risk factors identified. Assessment: 12:00 General: Appears in no apparent distress. uncomfortable, Behavior is calm, cooperative, jl7 appropriate for age. Neuro: No deficits noted. Cardiovascular: Patient's skin is warm and dry. Respiratory: Airway is patent Respiratory effort is even, unlabored, Respiratory pattern is regular, symmetrical, not auscultated. Derm: Skin is pink, warm \T\ dry. Vital Signs: 10:49 BP 133 / 80; Pulse 77; Resp 20; Temp 101.1(O); Pulse Ox 96% on R/A; MAP 94 mmHg; Weight tm6 75.75 kg; Height 4 ft. 11 in. ; Pain 4/10; 13:56 Temp 100.4(O); jl7 10:49 Body Mass Index 33.73 (75.75 kg, 149.86 cm) tm6 10:49 Pain Scale: Adult tm6 ED Course: 10:40 Patient arrived in ED. im 10:42 Law Morocho MD is Attending Physician. yanira 10:50 Triage completed. tm6 10:50 Arm band placed on right wrist. tm6 10:57 Strep Sent. tm6 10:57 SARS RAPID Sent. tm6 10:57 Flu Sent. tm6 11:09 Chest Pa And Lat (2 Views) XRAY In Process Unspecified. EDMS 12:08 First set of blood cultures drawn by me. jl7 12:14 Inserted saline lock: 20 gauge in right antecubital area, using aseptic technique. jl7 Blood collected. Flushed with 10 mL NS. 12:14 Initial lab(s) drawn, by me, sent to lab. Second set of blood cultures drawn by me. jl7 12:45 Zuly Alanis, SALLY is Primary Nurse. jl7 13:15 Patient has correct armband on for positive identification. Bed in low position. Call jl7 light in reach. Side rails up X 1. Provided Education on: use of call hunter. 13:44 Andres Padilla MD is Referral Physician. [facility] 14:12 No provider procedures requiring assistance completed. IV discontinued, intact, jl7 bleeding controlled, No redness/swelling at site. Pressure dressing applied. Administered Medications: 12:45 Drug: MethylPrednisoLONE IVP 125 mg IVP once Route: IVP; Site: right antecubital; jl7 13:56 Follow up: Response: No adverse reaction jl7 12:45 Drug: predniSONE PO 40 mg PO once Route: PO; jl7 13:55 Follow up: Response: No adverse reaction jl7 12:45 Drug: Levalbuterol Inhalation 2.5 mg Inhalation once Route: Inhalation; jl7 13:55 Follow up: Response: No adverse reaction jl7 12:45 Drug: Ipratropium Inhalation Aerosol 0.5 mg Inhalation once Route: Inhalation; jl7 13:55 Follow up: Response: No adverse reaction jl7 12:45 Drug: Tessalon Perle PO 200 mg PO once Route: PO; jl7 13:55 Follow up: Response: No adverse reaction jl7 12:45 Drug: Tussionex Pennkinetic ER PO Suspension 5 ml PO once Route: PO; jl7 13:55 Follow up: Response: No adverse reaction jl7 12:45 Drug: Ibuprofen PO 600 mg PO once Route: PO; jl7 13:55 Follow up: Response: No adverse reaction; Temperature is decreased jl7 12:45 Drug: Acetaminophen PO 650 mg PO once Route: PO; jl7 13:55 Follow up: Response: No adverse reaction; Temperature is decreased jl7 12:46 Drug: NS 0.9% IV 500 ml IV at bolus once Route: IV; Rate: bolus; Site: right jl7 antecubital; 13:20 Follow up: Response: No adverse reaction; IV Status: Completed infusion; IV Intake: jl7 500ml 12:46 Drug: AZITHromycin PO 500 mg PO once Route: PO; jl7 13:56 Follow up: Response: No adverse reaction jl7 12:46 Drug: Rocephin IV 1 grams IV at per protocol once; Given slow IV push per pharmacy jl7 instructions Route: IV; Rate: per protocol; Site: right antecubital; 13:15 Follow up: Response: No adverse reaction; IV Status: Completed infusion jl7 12:46 Not Given (Patient Refused): [id number] mg PO once jl7 13:55 Drug: Levalbuterol Inhalation 2.5 mg Inhalation once Route: Inhalation; jl7 Medication: 14:13 VIS not applicable for this client. jl7 Intake: 13:20 IV: 500ml; Total: 500ml. jl7 Outcome: 13:45 Discharge ordered by . yanira 14:13 Discharged to home ambulatory, with significant other, [facility] 14:13 Condition: stable 14:13 Discharge instructions given to patient, significant other, Instructed on discharge instructions, follow up and referral plans. medication usage, Demonstrated understanding of instructions, follow-up care, medications, Prescriptions given X 5 14:14 Patient left the ED. jl7 Signatures: Dispatcher [employer] EDGA Law Morocho MD MD cha Leal, Jahala RN RN jl7 Demetria Gonsales Tawney, RN RN tm6 Corrections: (The following items were deleted from the chart) 12:46 12:46 Oseltamivir PO 75 mg PO jl7 jl7
--- NOTE | 2024-03-18 13:46 | EDPHYS ---
Physician Documentation [facility] Name: Elsy Reed Age: 63 yrs Sex: Female : 1960 Arrival Date: 03/18/2024 Time: 10:38 Bed 9 Private MD: ED Physician Law Morocho HPI: 03/18 13:24 This 63 yrs old Female presents to ER via Ambulatory with complaints of yanira Congestion, Fever. 13:24 The patient reports fever, that was measured at 101 degrees Fahrenheit. Onset: The yanira symptoms/episode began/occurred 2 day(s) ago. Modifying factors: there are no obvious modifying factors. Associated signs and symptoms: Pertinent positives: cough, with clear sputum, runny nose, sinus congestion, sore throat. Severity of symptoms: At their worst the symptoms were moderate in the emergency department the symptoms are unchanged. Historical: - Allergies: 10:50 No Known Allergies; tm6 - PMHx: 10:50 Diverticulitis; Gastric Reflux; Hypertension; ruptured bowel (Hypertension); tm6 - PSHx: 10:50 tubal ligation (Hypertension); tm6 - Immunization history:: Client reports receiving the 2nd dose of the Covid vaccine. - Infectious Disease History:: Denies. - Social history:: Smoking status: Patient reports the use of cigarette tobacco products, smokes one pack cigarettes per day. Patient uses alcohol, occasionally. ROS: 13:29 Eyes: Negative for injury, pain, redness, and discharge, ENT: Negative for injury, yanira pain, and discharge, Neck: Negative for injury, pain, and swelling, Cardiovascular: Negative for chest pain, palpitations, and edema, Abdomen/GI: Negative for abdominal pain, nausea, vomiting, diarrhea, and constipation, Back: Negative for injury and pain, : Negative for injury, bleeding, discharge, and swelling, MS/Extremity: Negative for injury and deformity, Skin: Negative for injury, rash, and discoloration, Neuro: Negative for headache, weakness, numbness, tingling, and seizure, Psych: Negative for depression, anxiety, suicide ideation, homicidal ideation, and hallucinations, Allergy/Immunology: Negative for hives, rash, and allergies, Endocrine: Negative for neck swelling, polydipsia, polyuria, polyphagia, and marked weight changes, Hematologic/Lymphatic: Negative for swollen nodes, abnormal bleeding, and unusual bruising, 13:29 Constitutional: Positive for body aches, chills, fatigue, fever, malaise, 13:29 Respiratory: Positive for cough, shortness of breath, on exertion. wheezing, inspiratory, expiratory, 13:29 MS/extremity: Negative for acute changes, swelling, Exam: 13:29 Head/Face: Normocephalic, atraumatic. Eyes: Pupils equal round and reactive to light, yanira extra-ocular motions intact. Lids and lashes normal. Conjunctiva and sclera are non-icteric and not injected. Cornea within normal limits. Periorbital areas with no swelling, redness, or edema. ENT: Nares patent. No nasal discharge, no septal abnormalities noted. Tympanic membranes are normal and external auditory canals are clear. Oropharynx with no redness, swelling, or masses, exudates, or evidence of obstruction, uvula midline. Mucous membranes moist. Neck: Trachea midline, no thyromegaly or masses palpated, and no cervical lymphadenopathy. Supple, full range of motion without nuchal rigidity, or vertebral point tenderness. No Meningismus. Chest/axilla: Normal chest wall appearance and motion. Nontender with no deformity. No lesions are appreciated. Cardiovascular: Regular rate and rhythm with a normal S1 and S2. No gallops, murmurs, or rubs. Normal PMI, no JVD. No pulse deficits. Abdomen/GI: Soft, non-tender, with normal bowel sounds. No distension or tympany. No guarding or rebound. No evidence of tenderness throughout. Back: No spinal tenderness. No costovertebral tenderness. Full range of motion. Female : Normal external genitalia. Skin: Warm, dry with normal turgor. Normal color with no rashes, no lesions, and no evidence of cellulitis. MS/ Extremity: Pulses equal, no cyanosis. Neurovascular intact. Full, normal range of motion. Neuro: Awake and alert, GCS 15, oriented to person, place, time, and situation. Cranial nerves II-XII grossly intact. Motor strength 5/5 in all extremities. Sensory grossly intact. Cerebellar exam normal. Normal gait. Psych: Awake, alert, with orientation to person, place and time. Behavior, mood, and affect are within normal limits. 13:29 Constitutional: The patient appears febrile, 13:29 Respiratory: mild respiratory distress is noted, Respirations: labored breathing, that is mild, Breath sounds: bronchial sounds, decreased breath sounds, that are mild, rhonchi, that are mild, are scattered, stridor, is not appreciated, + upper airway congestion. wheezing: inspiratory expiratory is heard diffusely, 13:29 Musculoskeletal/extremity: ROM: no acute changes, intact in all extremities, full active range of motion, full passive range of motion, Circulation is intact in all extremities. Sensation intact. Compartment Syndrome exam of affected extremity: is normal. DVT Exam: No signs of deep vein thrombosis. no pain, no swelling, no tenderness, negative Homans' sign noted on exam, no appreciated bluish discoloration, no erythema, no increased warmth, Vital Signs: 10:49 BP 133 / 80; Pulse 77; Resp 20; Temp 101.1(O); Pulse Ox 96% on R/A; MAP 94 mmHg; Weight tm6 75.75 kg; Height 4 ft. 11 in. ; Pain 4/10; 13:56 Temp 100.4(O); jl7 10:49 Body Mass Index 33.73 (75.75 kg, 149.86 cm) tm6 10:49 Pain Scale: Adult tm6 MDM: 10:42 Patient medically screened. [facility] 13:40 Antibiotic administration: The patient is discharged and will get outpatient [facility] antibiotics, Zithromax. Differential diagnosis: viral Infection, bacterial infection, URI, bronchitis, pneumonia UTI. Immunization status: Influenza vaccine: within last 5 years. Data reviewed: vital signs, nurses notes, lab test result(s), radiologic studies, plain films. Consideration of Admission/Observation Escalation of care including admission/observation considered. I considered the following discharge prescriptions or medication management in the emergency department Medications were administered in the Emergency Department. See MAR. Independent interpretation of the following test(s) in the Emergency Department X-Ray: My interpretation is CXR. Test considered but Not performed: CT: NO CT CHEST. 03/18 10:44 Order name: CBC with Diff [facility] 03/18 10:44 Order name: Comprehensive Metabolic Panel; Complete Time: 13:20 [facility] 03/18 10:44 Order name: Flu; Complete Time: 12:16 [facility] 03/18 10:44 Order name: SARS RAPID; Complete Time: 12:16 [facility] 03/18 10:44 Order name: Strep [facility] 03/18 10:44 Order name: Blood Culture Adult (2) yanira 03/18 11:33 Order name: Throat Culture EDMS 03/18 10:44 Order name: Chest Pa And Lat (2 Views) XRAY; Complete Time: 12:16 [facility] Administered Medications: 12:45 Drug: MethylPrednisoLONE IVP 125 mg IVP once Route: IVP; Site: right antecubital; jl7 13:56 Follow up: Response: No adverse reaction jl7 12:45 Drug: predniSONE PO 40 mg PO once Route: PO; jl7 13:55 Follow up: Response: No adverse reaction jl7 12:45 Drug: Levalbuterol Inhalation 2.5 mg Inhalation once Route: Inhalation; jl7 13:55 Follow up: Response: No adverse reaction jl7 12:45 Drug: Ipratropium Inhalation Aerosol 0.5 mg Inhalation once Route: Inhalation; jl7 13:55 Follow up: Response: No adverse reaction jl7 12:45 Drug: Tessalon Perle PO 200 mg PO once Route: PO; jl7 13:55 Follow up: Response: No adverse reaction jl7 12:45 Drug: Tussionex Pennkinetic ER PO Suspension 5 ml PO once Route: PO; jl7 13:55 Follow up: Response: No adverse reaction jl7 12:45 Drug: Ibuprofen PO 600 mg PO once Route: PO; jl7 13:55 Follow up: Response: No adverse reaction; Temperature is decreased jl7 12:45 Drug: Acetaminophen PO 650 mg PO once Route: PO; jl7 13:55 Follow up: Response: No adverse reaction; Temperature is decreased jl7 12:46 Drug: NS 0.9% IV 500 ml IV at bolus once Route: IV; Rate: bolus; Site: right jl7 antecubital; 13:20 Follow up: Response: No adverse reaction; IV Status: Completed infusion; IV Intake: jl7 500ml 12:46 Drug: AZITHromycin PO 500 mg PO once Route: PO; jl7 13:56 Follow up: Response: No adverse reaction jl7 12:46 Drug: Rocephin IV 1 grams IV at per protocol once; Given slow IV push per pharmacy jl7 instructions Route: IV; Rate: per protocol; Site: right antecubital; 13:15 Follow up: Response: No adverse reaction; IV Status: Completed infusion jl7 12:46 Not Given (Patient Refused): mg PO once jl7 13:55 Drug: Levalbuterol Inhalation 2.5 mg Inhalation once Route: Inhalation; jl7 Disposition Summary: 03/18/24 13:45 Discharge Ordered Notes: Location: Home [facility] Problem: new yanira Symptoms: have improved yanira Condition: Stable yanira Diagnosis - Fever, unspecified yanira - Acute upper respiratory infection, unspecified yanira - COPD/ Chronic obstructive pulmonary disease with (acute) exacerbation yanira - Influenza due to other identified influenza virus with other respiratory [facility] manifestations - FLU A Followup: yanira - With: Private Physician - When: 2 - 3 days - Reason: Recheck today's complaints, Continuance of care, Re-evaluation by your physician Followup: yanira - With: Andres Padilla MD - When: 2 - 3 days - Reason: Recheck today's complaints, Re-evaluation by your physician Discharge Instructions: - Discharge Summary Sheet yanira - Chronic Obstructive Pulmonary Disease yanira - Fever, Adult yanira - Influenza, Adult yanira - Upper Respiratory Infection, Adult yanira - Cool Mist Vaporizer yanira - Chronic Obstructive Pulmonary Disease Exacerbation yanira - Chronic Obstructive Pulmonary Disease, [id number] yanira - Upper Respiratory Infection, Adult, [id number] yanira - Viral Respiratory Infection, [id number] yanira - Cough, Adult [facility] Forms: - Medication Reconciliation Form [facility] - Antibiotic Education yanira - Prescription Opioid Use [facility] - Patient Portal Instructions [facility] - Leadership Thank You Letter [facility] Prescriptions: - albuterol sulfate 90 mcg/actuation Inhalation HFA Aerosol Inhaler - inhale 2 puff INHALATION route every 4 to 6 hours as needed for shortness of yanira breath or wheezing; 1 unit; Refills: 0, Product Selection Permitted - Albuterol Sulfate 2.5 mg /3 mL (0.083 %) Inhalation Solution for Nebulization - inhale 1 unit NEBULIZATION route every 4-6 hours As needed; 25 unit; Refills: yanira 0, Product Selection Permitted - Prednisone 20 mg Oral Tablet - take 2 tablets ORAL route once daily for 5 days; 10 tablet; Refills: 0, Product yanira Selection Permitted - Tamiflu 75 mg Oral capsule - take 1 tablet ORAL route every 12 hours for 5 days; 10 tablet; Refills: 0, [facility] Product Selection Permitted - Zithromax 500 mg Oral Tablet - take 1 tablet ORAL route once daily for 5 days; 5 tablet; Refills: 0, Product yanira Selection Permitted Signatures: Dispatcher [employer] EDMS Law Morocho MD MD cha Leal, Jahala, RN RN jl7 Lynn Krause RN RN tm6 Corrections: (The following items were deleted from the chart) 10:45 10:44 CBC+H.LAB.BRZ ordered. EDMS EDMS 10:45 10:44 COMPREHENSIVE METABOLIC PANEL+C.LAB.BRZ ordered. EDMS EDMS 10:45 10:44 Influenza Screen (A \T\ B)+BA.LAB.BRZ ordered. EDMS EDMS 10:45 10:44 SARS-COV-2 Antigen Rapid+I.LAB.BRZ ordered. EDMS EDMS 10:45 10:44 Group A Streptococcus Rapid Sc+BA.LAB.BRZ ordered. EDMS EDMS 10:45 10:44 BLOOD CULTURE*+BA.LAB.BRZ ordered. EDMS EDMS
[2024-03-18 14:40] VITALS: BP 133/80; O2SAT 96
[2024-03-18 14:41] VITALS: TEMP 100.4
[2024-03-18 18:49] LABS: Platelet Estimate ADEQ; White Blood Cell Scan OK (OK)
[2024-03-18 18:50] LABS: Blood Morphology Comment NOT SEEN (NOT SEEN)
== END 2024-03-18 14:14 | disposition home or self-care (01) ==
LOC: ER 10:38
DX: J10.1 Influenza due to other identified influenza virus with other respiratory manifestations (principal); J44.1 Chronic obstructive pulmonary disease with (acute) exacerbation; F17.210 Nicotine dependence, cigarettes, uncomplicated; Z11.52 Encounter for screening for COVID-19
CPT/HCPCS: 96365; 87040 ×2; 87070; 85025; 36415; 87081; 80053; 87804 ×2; 71046; 96375; 99285; 87811; J7512; J7614; J7644; J2919; J7040; J0696

== ENCOUNTER 2024-07-06 08:40 | Emergency (ER) | payer BC ==
[2024-07-06] MEDS ORDERED: IBUPROFEN 200 MG TAB PO ONE (08:54)
[2024-07-06] MEDS ORDERED: ONDANSETRON 4 MG (ODT) TAB ONE (09:03)
[2024-07-06] MEDS ORDERED: ONDANSETRON 4 MG/2 ML VIAL ONE (10:03)
[2024-07-06] MEDS ORDERED: MORPHINE 4 MG/ML SYR ONE (10:04)
[2024-07-06] MEDS ORDERED: MIDAZOLAM HCL 2 MG/2 ML INJ ONE (10:04)
[2024-07-06] MEDS ORDERED: ETOMIDATE 20 MG/10 ML VIAL IV ONE (10:04)
[2024-07-06] MEDS ORDERED: NA CHLORIDE 0.9% 1,000 ML ONE (10:05)
--- NOTE | 2024-07-06 10:35 | RAD REPORT ---
EXAMINATION: XR RIGHT SHOUDLER CLINICAL INDICATION: Female, 63 years old. PAIN RIGHT TECHNIQUE:Two view radiograph of the right shoulder were obtained. COMPARISON: No prior exam. FINDINGS: Anteroinferior dislocation of the shoulder joint. AC joint is well aligned with mild degene rative changes. No fracture fragments are identified. Periarticular soft tissue swelling. No other focal osseous abnormality. Visualized aspect of the right lung is unremarkable. IMPRESSION: Anteroinferior shoulder dislocation.
[2024-07-06] MEDS ORDERED: PROMETHAZINE INJ 25 MG/ML AMP ONE (11:50)
--- NOTE | 2024-07-06 12:21 | ER ---
Nurse's Notes [facility] Name: Elsy Reed Age: 63 yrs Sex: Female : 1960 Arrival Date: 07/06/2024 Time: 08:40 Bed 14 Private MD: Diagnosis: Fall on same level, unspecified;Other dislocation of left shoulder joint-reduced Presentation: 07/06 08:57 Chief complaint: Patient states: she fell last night onto her right shoulder. patient ap3 denies hitting her head. patient currently reports her pain to be an 10/10 on the pain scale. Coronavirus screen: At this time, the client does not indicate any symptoms associated with coronavirus-19. Ebola Screen: No symptoms or risks identified at this time. Initial Sepsis Screen: Does the patient meet any 2 criteria? No. Patient's initial sepsis screen is negative. Does the patient have a suspected source of infection? No. Patient's initial sepsis screen is negative. Risk Assessment: Do you want to hurt yourself or someone else? Patient reports no desire to harm self or others. Onset of symptoms was July 05, 2024. Care prior to arrival: Medication(s) given: norco 5-325 at approx 0800 per patient. Transition of care: patient was not received from another setting of care. 08:57 Method Of Arrival: Ambulatory ap3 08:57 Acuity: OMAIRA 4 ap3 Triage Assessment: 09:00 General: Appears in no apparent distress. Behavior is calm, cooperative, appropriate ap3 for age. Pain: Complains of pain in right arm Pain currently is 10 out of 10 on a pain scale. Neuro: Level of Consciousness is awake, alert, obeys commands, Oriented to person, place, time, situation. Cardiovascular: Patient's skin is warm and dry. Respiratory: Airway is patent Respiratory effort is even, unlabored, Respiratory pattern is regular, symmetrical. Historical: - Allergies: 08:59 No Known Allergies; ap3 - PMHx: 08:59 Diverticulitis; Gastric Reflux; Hypertension; ruptured bowel (Hypertension); ap3 - PSHx: 08:59 tubal ligation (en); ap3 - Immunization history:: Client reports receiving the 2nd dose of the Covid vaccine, Flu vaccine is not up to date. - Infectious Disease History:: Denies. - Social history:: Smoking status: Patient reports the use of cigarette tobacco products, smokes one pack cigarettes per day. Screenin:01 Abuse screen: Denies threats or abuse. Nutritional screening: No deficits noted. ap3 Tuberculosis screening: No symptoms or risk factors identified. 15:44 [facility] ED Fall Risk Assessment (Adult) History of falling in the last 3 months, bp including since admission Yes- single mechanical fall (1 pt) Confusion or Disorientation No (0 pts) Intoxicated or Sedated Impaired Gait No (0 pts) Mobility Assist Device Used No (0 pt) Altered Elimination No (0 pt) Score/Fall Risk Level 0 - 2 = Low Risk Oriented to surroundings. Assessment: 09:00 General: Appears in no apparent distress. uncomfortable, Behavior is cooperative, bp appropriate for age, anxious. 11:00 Reassessment: No changes from previously documented assessment. Patient is alert, bp oriented x 3, equal unlabored respirations, skin warm/dry/pink. 11:00 Reassessment: PT CONSENTED FOR CLOSED REDUCTION OF R SHOULDER WITH CONSCIOUS SEDATION. bp PT AND FAMILY EXPRESSED UNDERSTANDING OF PROCEDURE AND MEDICATION. 12:30 Reassessment: CLOSED REDUCTION OF R SHOULDER COMPLETED SUCCESSFULLY. PT VS REMAINED bp WITHIN 20% OF BASELINE. 13:12 Reassessment: DC ON HOLD FOR PT INCREASED LOC. bp Vital Signs: 08:57 Pulse 63; Resp 17; Temp 98.4(TE); Pulse Ox 99% on R/A; Weight 44.45 kg; Height 4 ft. 11 ap3 in. ; Pain 10/10; 09:12 BP 168 / 73; ap3 11:00 BP 138 / 86; Pulse 62; Resp 16; Temp 98.1; Pulse Ox 97% on R/A; bp 12:00 BP 153 / 77; Pulse 55; Resp 18; Pulse Ox 99% ; bp 12:30 BP 130 / 71; Pulse 58; Resp 15; Pulse Ox 100% on 2 lpm NC; bp 13:54 BP 141 / 86; Pulse 48; Resp 16; Pulse Ox 100% ; bp 15:22 BP 97 / 72; Pulse 49; Resp 15; Pulse Ox 100% ; bp 08:57 Body Mass Index 19.79 (44.45 kg, 149.86 cm) ap3 08:57 Pain Scale: Adult ap3 ED Course: 08:45 Patient arrived in ED. sj2 08:45 Law Morocho MD is Attending Physician. yanira 08:51 Chevy Montes, SALLY is Primary Nurse. ay 08:59 Triage completed. ap3 09:01 Arm band placed on left wrist. ap3 09:44 Shoulder Right (2 View) XRAY In Process Unspecified. EDMS 10:06 Inserted saline lock: 20 gauge in left hand, using aseptic technique. Blood collected. em1 Flushed with 10 mL NS. 11:00 Patient has correct armband on for positive identification. bp 12:20 Brenton Harding MD is Referral Physician. yanira 12:27 Shoulder 1 View In Process Unspecified. EDMS 15:43 No provider procedures requiring assistance completed. IV discontinued, intact, bp bleeding controlled, No redness/swelling at site. Pressure dressing applied. Sling applied to right arm. Administered Medications: 09:12 Drug: Ibuprofen PO 600 mg PO once Route: PO; ap3 11:54 Follow up: Response: No adverse reaction bp 09:12 Drug: Ondansetron Oral Disintegrating Tablet Oral Disintegrating Tablet 8 mg PO once ap3 Route: PO; 11:54 Follow up: Response: No adverse reaction bp 10:16 Drug: Ondansetron IVP 4 mg IVP once; over 2 minutes Route: IVP; Site: left hand; bp 11:54 Follow up: Response: No adverse reaction bp 10:17 Drug: NS 0.9% IV 1000 ml IV at 1 bolus Per protocol; to be given as a bolus over 60 bp minutes Route: IV; Rate: 1 bolus; Site: left hand; 15:44 Follow up: IV Status: Completed infusion bp 10:17 Drug: morphine IVP or IV 4 mg IVP once over 4 mins Route: IVP; Infused Over: 4 mins; bp Site: left hand; 11:54 Follow up: Response: No adverse reaction bp 11:54 Drug: Promethazine IVP 12.5 mg IVP once Route: IVP; Site: left hand; bp 11:54 Follow up: Response: No adverse reaction bp 12:00 Drug: Etomidate IVP 10 mg IVP once Route: IVP; Site: left hand; bp 12:24 Follow up: Response: No adverse reaction bp 12:00 Drug: Midazolam IVP or IV 4 mg IVP once Route: IVP; Site: left hand; bp 12:33 Follow up: Response: No adverse reaction bp 12:24 Not Given (Physician Discretion): [id number] mg IVP once bp 12:26 Not Given (PT ASLEEPp): [id number] mg IVP once bp Outcome: 12:21 Discharge ordered by . yanira 15:43 Discharged to home ambulatory, with family, bp 15:43 Condition: stable 15:43 Discharge instructions given to patient, Instructed on discharge instructions, follow up and referral plans. medication usage, Demonstrated understanding of instructions, follow-up care, medications, Prescriptions given X 2, 15:44 Patient left the ED. bp Signatures: Dispatcher [employer] EDMS Law Morocho MD MD cha Martinez, Eric em1 Mustapha Oseguera, RN RN bp Rossy Magana RN RN ap3 Fabiano Farah 2 Chevy Montes RN RN ay Corrections: (The following items were deleted from the chart) 12:26 12:25 Midazolam IVP or IV 2 mg IVP in left hand bp bp
--- NOTE | 2024-07-06 12:21 | EDPHYS ---
Physician Documentation [facility] Name: Elsy Reed Age: 63 yrs Sex: Female : 1960 Arrival Date: 07/06/2024 Time: 08:40 Bed 14 Private MD: ED Physician Law Morocho HPI: 07/06 09:10 This 63 yrs old Female presents to ER via Ambulatory with complaints of Fall yanira Injury - RIGHT SHOULDER/ARM. Historical: - Allergies: 08:59 No Known Allergies; ap3 - PMHx: 08:59 Diverticulitis; Gastric Reflux; Hypertension; ruptured bowel (Hypertension); ap3 - PSHx: 08:59 tubal ligation (en); ap3 - Immunization history:: Client reports receiving the 2nd dose of the Covid vaccine, Flu vaccine is not up to date. - Infectious Disease History:: Denies. - Social history:: Smoking status: Patient reports the use of cigarette tobacco products, smokes one pack cigarettes per day. ROS: 09:12 Constitutional: Negative for fever, chills, and weight loss, Eyes: Negative for injury, yanira pain, redness, and discharge, ENT: Negative for injury, pain, and discharge, Neck: Negative for injury, pain, and swelling, Cardiovascular: Negative for chest pain, palpitations, and edema, Respiratory: Negative for shortness of breath, cough, wheezing, and pleuritic chest pain, Abdomen/GI: Negative for abdominal pain, nausea, vomiting, diarrhea, and constipation, Back: Negative for injury and pain, : Negative for injury, bleeding, discharge, and swelling, Skin: Negative for injury, rash, and discoloration, Neuro: Negative for headache, weakness, numbness, tingling, and seizure, Psych: Negative for depression, anxiety, suicide ideation, homicidal ideation, and hallucinations, Allergy/Immunology: Negative for hives, rash, and allergies, Endocrine: Negative for neck swelling, polydipsia, polyuria, polyphagia, and marked weight changes, Hematologic/Lymphatic: Negative for swollen nodes, abnormal bleeding, and unusual bruising, 09:12 MS/extremity: Positive for decreased range of motion, pain, swelling, tenderness, of the anterior aspect of right shoulder and posterior aspect of right shoulder, Exam: 09:17 Constitutional: This is a well developed, well nourished patient who is awake, alert, yanira and in no acute distress. Head/Face: Normocephalic, atraumatic. Eyes: Pupils equal round and reactive to light, extra-ocular motions intact. Lids and lashes normal. Conjunctiva and sclera are non-icteric and not injected. Cornea within normal limits. Periorbital areas with no swelling, redness, or edema. ENT: Nares patent. No nasal discharge, no septal abnormalities noted. Tympanic membranes are normal and external auditory canals are clear. Oropharynx with no redness, swelling, or masses, exudates, or evidence of obstruction, uvula midline. Mucous membranes moist. Neck: Trachea midline, no thyromegaly or masses palpated, and no cervical lymphadenopathy. Supple, full range of motion without nuchal rigidity, or vertebral point tenderness. No Meningismus. Chest/axilla: Normal chest wall appearance and motion. Nontender with no deformity. No lesions are appreciated. Cardiovascular: Regular rate and rhythm with a normal S1 and S2. No gallops, murmurs, or rubs. Normal PMI, no JVD. No pulse deficits. Respiratory: Lungs have equal breath sounds bilaterally, clear to auscultation and percussion. No rales, rhonchi or wheezes noted. No increased work of breathing, no retractions or nasal flaring. Abdomen/GI: Soft, non-tender, with normal bowel sounds. No distension or tympany. No guarding or rebound. No evidence of tenderness throughout. Back: No spinal tenderness. No costovertebral tenderness. Full range of motion. Female : Normal external genitalia. Skin: Warm, dry with normal turgor. Normal color with no rashes, no lesions, and no evidence of cellulitis. Neuro: Awake and alert, GCS 15, oriented to person, place, time, and situation. Cranial nerves II-XII grossly intact. Motor strength 5/5 in all extremities. Sensory grossly intact. Cerebellar exam normal. Normal gait. Psych: Awake, alert, with orientation to person, place and time. Behavior, mood, and affect are within normal limits. 09:17 Musculoskeletal/extremity: ROM: limited passive range of motion, limited active range of motion due to pain, Circulation is intact in all extremities. Sensation intact. Compartment Syndrome exam of affected extremity: is normal. Vital Signs: 08:57 Pulse 63; Resp 17; Temp 98.4(TE); Pulse Ox 99% on R/A; Weight 44.45 kg; Height 4 ft. 11 ap3 in. ; Pain 10/10; 09:12 BP 168 / 73; ap3 11:00 BP 138 / 86; Pulse 62; Resp 16; Temp 98.1; Pulse Ox 97% on R/A; bp 12:00 BP 153 / 77; Pulse 55; Resp 18; Pulse Ox 99% ; bp 12:30 BP 130 / 71; Pulse 58; Resp 15; Pulse Ox 100% on 2 lpm NC; bp 13:54 BP 141 / 86; Pulse 48; Resp 16; Pulse Ox 100% ; bp 15:22 BP 97 / 72; Pulse 49; Resp 15; Pulse Ox 100% ; bp 08:57 Body Mass Index 19.79 (44.45 kg, 149.86 cm) ap3 08:57 Pain Scale: Adult ap3 MDM: 08:45 Medical Screening Exam initiated yanira 09:17 Data reviewed: vital signs, nurses notes, radiologic studies, plain films. [facility] Consideration of Admission/Observation Escalation of care including admission/observation considered. I considered the following discharge prescriptions or medication management in the emergency department Medications were administered in the Emergency Department. See MAR. Independent interpretation of the following test(s) in the Emergency Department X-Ray: My interpretation is right shoulder. Test considered but Not performed: Labs: no labs. Care significantly affected by the following chronic conditions: Hypertension, divrticulitis, bowel rupture. Counseling: I had a detailed discussion with the patient and/or guardian regarding the historical points, exam findings, and any diagnostic results supporting the discharge/admit diagnosis, radiology results, the need for outpatient follow up, for definitive care, a orthopedic surgeon. 07/06 08:46 Order name: Shoulder Right (2 View) XRAY [facility] 07/06 12:27 Order name: Shoulder 1 View EDMS 07/06 08:46 Order name: Ice pack; Complete Time: 09:23 [facility] 07/06 09:21 Order name: Shoulder Immobilizer; Complete Time: 12:24 [facility] 07/06 10:01 Order name: NPO; Complete Time: 10:17 yanira Administered Medications: 09:12 Drug: Ibuprofen PO 600 mg PO once Route: PO; ap3 11:54 Follow up: Response: No adverse reaction bp 09:12 Drug: Ondansetron Oral Disintegrating Tablet Oral Disintegrating Tablet 8 mg PO once ap3 Route: PO; 11:54 Follow up: Response: No adverse reaction bp 10:16 Drug: Ondansetron IVP 4 mg IVP once; over 2 minutes Route: IVP; Site: left hand; bp 11:54 Follow up: Response: No adverse reaction bp 10:17 Drug: NS 0.9% IV 1000 ml IV at 1 bolus Per protocol; to be given as a bolus over 60 bp minutes Route: IV; Rate: 1 bolus; Site: left hand; 15:44 Follow up: IV Status: Completed infusion bp 10:17 Drug: morphine IVP or IV 4 mg IVP once over 4 mins Route: IVP; Infused Over: 4 mins; bp Site: left hand; 11:54 Follow up: Response: No adverse reaction bp 11:54 Drug: Promethazine IVP 12.5 mg IVP once Route: IVP; Site: left hand; bp 11:54 Follow up: Response: No adverse reaction bp 12:00 Drug: Etomidate IVP 10 mg IVP once Route: IVP; Site: left hand; bp 12:24 Follow up: Response: No adverse reaction bp 12:00 Drug: Midazolam IVP or IV 4 mg IVP once Route: IVP; Site: left hand; bp 12:33 Follow up: Response: No adverse reaction bp 12:24 Not Given (Physician Discretion): [id number] mg IVP once bp 12:26 Not Given (PT ASLEEPp): [id number] mg IVP once bp Disposition Summary: 07/06/24 12:21 Discharge Ordered Notes: Location: Home yanira Problem: new yanira Symptoms: have improved yanira Condition: Stable yanira Diagnosis - Fall on same level, unspecified yanira - Other dislocation of left shoulder joint - reduced yanira Followup: yanira - With: Private Physician - When: 2 - 3 days - Reason: Recheck today's complaints, Continuance of care, Re-evaluation by your physician Followup: yanira - With: Brenton Harding MD - When: 2 - 3 days - Reason: Recheck today's complaints, Re-evaluation by your physician Discharge Instructions: - Discharge Summary Sheet yanira - Shoulder Dislocation yanira - Fall Prevention in the Home, Adult yanira - Fall Prevention in the Home, Adult, [id number] yanira - Shoulder Dislocation, [id number] yanira Forms: - Medication Reconciliation Form yanira - Antibiotic Education yanira - Prescription Opioid Use yanira - Patient Portal Instructions [facility] - Leadership Thank You Letter [facility] Prescriptions: - diclofenac sodium 25 mg Oral tablet, delayed release (enteric coated) - take 1 tablet ORAL route every 8 hours; 21 tablet; Refills: 0, Product [facility] Selection Permitted - ondansetron 4 mg Oral Tablet,disintegrating - take 1 tablet ORAL route every 6-8 hours for 5 days prn nausea; 20 tablet; [facility] Refills: 0, Product Selection Permitted Signatures: Dispatcher [employer] EDLaw Odom MD MD cha Peltier, Brian, RN RN bp Rossy Magana RN RN ap3 Corrections: (The following items were deleted from the chart) 12:27 12:07 Shoulder Right 2 View+[email or web address] ordered. [facility]
--- NOTE | 2024-07-06 13:50 | RAD REPORT ---
EXAMINATION: XR RIGHT SHOUDLER CLINICAL INDICATION: Female, 63 years old. post reduc;Pain RIGHT TECHNIQUE: 1 view radiograph of the right shoulder were obtained. COMPARISON: Same day right shoulder radiographs at 0920 hours. FINDINGS: Anatomic alignment of the glenohumeral joint following closed reduction. Impression along the lateral aspect of the humeral head, suggesting Hill-Sachs deformity. No acute displaced fracture. Mild AC joint degenerative changes again seen. IMPRESSION: Satisfactory alignment of the glenohumeral joint. Impression along the lateral aspect of the humeral head suggesting Hill-Sachs deformity.
[2024-07-06 16:49] VITALS: TEMP 98.1
[2024-07-06 16:52] VITALS: O2SAT 100
[2024-07-06 16:54] VITALS: BP 97/72
== END 2024-07-06 15:44 | disposition home or self-care (01) ==
LOC: ER 08:40
PROC: 0RSJXZZ Reposition Right Shoulder Joint, External Approach (ICD-10-PCS; principal; 2024-07-06)
DX: S43.084A Other dislocation of right shoulder joint, initial encounter (principal); W18.30XA Fall on same level, unspecified, initial encounter; I10 Essential (primary) hypertension; F17.210 Nicotine dependence, cigarettes, uncomplicated
CPT/HCPCS: 96361; 73020; 73030; 96375; 96374; 99284; 23650; J2550; Q0162; J2250; J2405; J7030